=== PATIENT | male | born 1945 | race Caucasian/White ===

== ENCOUNTER 2018-09-21 01:17 | Inpatient (IN) | payer MEDICARE, OTHER ==
[2018-09-21] VITALS (20 sets, daily range): BP systolic 107–198; BP diastolic 53–118
[~2018-09-21] VITALS: Ht 172.7 cm; Wt 137.4 kg
[~2018-09-21 01:17] MED LIST: AMLODIPINE BESYL5 MG PO; ASPIR 8181 MG PO; DOCUSATE SODIU100 MG PO; FLOMAX0.4 MG PO; HYDROCHLOROTHIA25 MG PO; NEXIUM40 MG PO; NORCO 10-325 T1 EACH PO; PROAIR HFA INH8.5 GM INH; SYMBICORT 16010.2 GM INH; VYTORIN 10-801 EACH PO
[2018-09-21] MEDS ORDERED: LEVOFLOXACIN 750MG/D5W 150ML 150 ML IV STA (01:21)
[2018-09-21] MEDS ORDERED: NITROGLYCERIN/D5W 200 MCG/ML 250 ML IV STA (01:21)
[2018-09-21] MEDS ORDERED: FUROSEMIDE INJ 100 MG in SODIUM CHLORIDE 0.9% 100 ML 90 ML IV SCH (01:30)
[2018-09-21] MEDS ORDERED: ASPIRIN 81 MG CHEW TAB PO ONE ×2 (01:30)
[2018-09-21 01:39] LABS: BASOPHILS % 0.4 % (0.0-1.0); EOSINOPHILS # (AUTO) 0.1 (0.0-0.4); HEMATOCRIT 33.9 % (38.2-49.6); HEMOGLOBIN 10.9 g/dL (14.0-18.0); LYMPHOCYTES # (AUTO) 0.7 (1.0-3.2); LYMPHOCYTES % 6.9 % (18.0-39.1); MEAN CORPUSCULAR HEMOGLOBIN 31.2 pg (28-32); MEAN CORPUSCULAR HGB CONC 32.2 g/dL (31-35); MEAN CORPUSCULAR VOLUME 97.1 fL (81-99); MONOCYTES # (AUTO) 0.5 (0.2-0.8); MONOCYTES % 4.7 % (4.4-11.3); NEUTROPHILS # (AUTO) 9.1 (2.1-6.9); NEUTROPHILS % 86.3 % (38.7-80.0); PLATELET COUNT 159 x10e3/uL (140-360); RED BLOOD COUNT 3.49 x10e6/uL (4.3-5.7); RED CELL DISTRIBUTION WIDTH 15.6 % (11.7-14.4)
[2018-09-21] MEDS ORDERED: ACETAMINOPHEN 1000 MG/100 ML IV STA (01:39)
[2018-09-21 01:55] LABS: ALBUMIN 2.6 g/dL (3.5-5.0); ALBUMIN/GLOBULIN RATIO 0.6 (0.8-2.0); ANION GAP 17.3 mmol/L (8-16); CREATININE, SERUM 5.59 mg/dL (0.72-1.25); POTASSIUM 4.3 mmol/L (3.5-5.1)
--- NOTE | 2018-09-21 01:55 | Diagnostic Imaging Report ---
CHEST SINGLE (PORTABLE), 09/21/2018 1:21 AM Technique: CHEST SINGLE (PORTABLE) Comparison: 04/16/2017 Clinical history: Shortness of breath Findings: See Impression Impression: Limited by portable technique and overlying soft tissues. 1. Stable enlarged cardiac silhouette. 2. Central vascular congestion and/or mild edema. 3. Small to moderate right pleural effusion with associated atelectasis. Consider follow-up upright PA and lateral when feasible. Signed by: Dr Kateryna Keene MD on 09/21/2018 1:51 AM
[2018-09-21 02:06] LABS: CALCIUM 7.1 mg/dL (8.4-10.2)
[2018-09-21 02:07] LABS: ABG HCO3 15 mmol/L (23-28); ABG PCO2 39 mmHg (41-51); ABG PO2 186 mmHg (80-105)
[2018-09-21 02:08] LABS: CREATINE KINASE MB 16.2 ng/mL (0-5.0)
--- NOTE | 2018-09-21 02:18 | NUR ---
Report given by me to Hadley José RN. Informed of the need to IV lasix drip and antibitoics in the ICU. Patient transferred on BIPAP, AAOX3 at time of tranfer to ICU, BP 183/110 at time of transfer on nitro drip.
--- NOTE | 2018-09-21 02:20 | NUR ---
REPORT RECEIVED FROM DR. ENNIS IN ER.
[2018-09-21] MEDS ORDERED: FUROSEMIDE INJ 10 MG/ML 10 ML VIAL ONE (03:24)
[2018-09-21] MEDS ORDERED: SODIUM CHLORIDE 0.9% 250ML 250 ML ONE (03:25)
[2018-09-21] MEDS ORDERED: FUROSEMIDE INJ 10 MG/ML 2 ML VIAL ONE (03:41)
[2018-09-21] MEDS ORDERED: FUROSEMIDE INJ 10 MG/ML 4 ML VIAL IV ONE (03:45)
--- NOTE | 2018-09-21 04:15 | NUR ---
Patient brought his own [place] from home and refuses to use our medication. Got a order from Dr. Oakley to use the patients home medication. I got one tablet out from the patients home prescription bottle and gave it to the patient.
[2018-09-21] MEDS: HYDROCODONE/APAP 10MG-325MG TAB PO PRN ×5 (04:32→21:30)
--- NOTE | 2018-09-21 04:58 | NUR ---
PATIENTS BELONGINGS INCLUDED ONE BROWN WALLET THAT HAD 3 BANK CARDS, ONE MONEY CLIP WITH 41 DOLLARS, AND ONE BANK ENVELOPE WITH 300 DOLLARS, KEYS, AND HOME PRESCRIPTION OF [place] [facility]
--- NOTE | 2018-09-21 06:40 | NUR ---
CONSULT CALLED FOR DR. VO AND SPOKE DR. BYNUM. NO ORDERS GIVEN
--- NOTE | 2018-09-21 06:41 | NUR ---
CONSULT CALLED FOR DR. GABBI TOBIAS. NO CALL BACK YET
--- NOTE | 2018-09-21 06:44 | NUR ---
CONSULT WAS CALLED TO DR. ROMERO'S ANSWERING SERVICE AND SPOKE WITH PURNIMA
--- NOTE | 2018-09-21 08:50 | NUR ---
charge nurse was notified to previous note re: medication in pts room
--- NOTE | 2018-09-21 08:50 | NUR ---
pt requesting water so he can take his home medication. when pt was asked what he was taking to stated "Hydrocodone". explained to pt he could not have a controlled substance in his room, that we would have to clear through pharmacy and place in [facility]. pt became upset and rudely refused to give his medication to nurse and stated "I will give it to my daughter to take home". explained to pt risks of someone else getting his medication, pt stated "no one is going to get it because I'm going to keep it between my legs". pt place his medication back in medication bottle and dose from [facility] was administered for 10/10 pain. pt apologized for getting upset and stated he understood and would send his home and take hospital dose medication. will continue to monitor
--- NOTE | 2018-09-21 09:08 | NUR ---
WOUND CARE CONSULT Pt is a pleasant 73 y/o male admitted with CHF and HTN. Head to toe assessment performed during visit. No wounds identified. Noted dermatologic rash to mid-abdominal fold and gluteal cleft areas. Education provided for moisture management and skin care. LABS- WBC: 10.52 ALB: 2.6 MICRO- Blood Culture: Pending RECOMMENDATION: Yeast To Abdominal and Mid-Gluteal Folds: Wash affected areas with soap and water then pat dry thoroughly. Apply Nystatin Powder BID and PRN Soiling. Addendum: 09/21/18 at 1004 by Guille Kaplan RN Amended: Links added.
[2018-09-21 09:28] LABS: CREATINE KINASE MB 11.9 ng/mL (0-5.0)
--- NOTE | 2018-09-21 11:04 | NUR ---
Nutrition Screen Note RD Recommendation for Physician: -Rec cardiac/ ADA diet as medically feasible -Consider Ensure Compact BID if PO < 50% Plan of Care: RD following, monitoring for tolerance and adequacy Nutrition reason for involvement: RN Consult No reason stated Primary Diagnose(s): CHF, hypertensive emergency PMH: DM, CHF, HTN, CKD (per pt) Ht: 68in Wt: 302.44lb BMI: 46kg/m2 IBW: 154lb RD Assessment: (09/21) Chart reviewed. Labs and meds reviewed. 73yo M, who is admitted for CHF. Visited pt in the room. Pt is currently on IV lasix. 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 Pt is currently NPO but eager to eat. No recent weight loss reported. No GI complains noted. LBM 09/19. Pt denies any chewing or swallowing difficulty. Will continue to monitor and follow. Current Diet: NPO Malnutrition Evaluation (09/21/18) The patient does not meet criteria for a specified degree of malnutrition at this time. Will re-evaluate at follow-up as appropriate. Diet Education Needs Assessment: Diet education is not indicated. Nutrition Care Level: low Signed: Alyssa Lucio, MS, RD, LD
[2018-09-21] MEDS ORDERED: PIPER-TAZ 3.375 GM 50 ML IV SCH (13:15)
[2018-09-21] MEDS ORDERED: NON-FORMULARY MEDICATION (Ezetimibe/Simvastatin (Vytorin 10-80 Mg Tablet) 1 TAB) PO SCH (13:15)
--- NOTE | 2018-09-21 13:35 | Consultation ---
DATE OF CONSULTATION: September 21, 2018 CARDIOLOGY CONSULTATION REQUESTING PHYSICIAN: Dr. Oscar REASON FOR CONSULT: Congestive heart failure. HISTORY OF PRESENT ILLNESS: This is a 73-year-old man with a history of congestive heart failure, diabetes mellitus, chronic kidney disease, and morbid obesity, who presents with complaints of shortness of breath and chest pain. The patient reports he was in his usual state of health until 3-4 days prior when he developed lower extremity edema and worsening shortness of breath. Along the same time, he developed left-sided chest pain, which he described as dull and sharp. The pain was 8/10 in severity and improved with taking Rolaids. The patient denies any orthopnea or PND. However, due to his shortness of breath he presented to the ER for further evaluation. On arrival in the ER, the patient was found to be hypertensive to 215/133 with a pulse of 103. Chest x-ray revealed stable enlarged cardiac silhouette with central vascular congestion and/or mild edema, small to moderate right pleural effusion with associated atelectasis. Labs were notable for a BNP of 1767 and a creatinine of 5.6. Cardiology was therefore consulted for evaluation of congestive heart failure. REVIEW OF SYSTEMS: Negative except as per HPI. PAST MEDICAL HISTORY: Chronic diastolic heart failure, diabetes mellitus, chronic kidney disease, morbid obesity. PAST SURGICAL HISTORY: Appendectomy, knee replacement. ALLERGIES: PLEASE SEE EMR. MEDICATIONS: Please see medication list. SOCIAL HISTORY: The patient smoked up to 4 packs a day for 30 years. He quit in 1999. He previously used alcohol and drugs. FAMILY HISTORY: Pertinent with mother with history of congestive heart failure. PHYSICAL EXAMINATION VITALS: Temperature 98 degrees, pulse 104, respiratory rate 22, blood pressure 129/75, oxygen saturation 98% on 8 L nasal cannula. GENERAL: Morbidly obese gentleman in no acute distress. HEENT: Normocephalic and atraumatic. Pupils equal. No scleral icterus. NECK: Supple. No thyroid or cervical lymphadenopathy. No carotid bruits. LUNGS: Clear to auscultation bilaterally. No wheezes other than decreased breath sounds on the right. No wheezes or crackles. CARDIOVASCULAR: Tachycardic but regular. No murmur. Normal S1 and S2. ABDOMEN: Soft and nontender. EXTREMITIES: Two plus pitting edema in bilateral lower extremities. LABS: Sodium 136, potassium 4.3, chloride 110, CO2 13, BUN 60, creatinine 5.59. BNP 1767. Troponin 0.305. WBC 10.52, hemoglobin 10.9, hematocrit 33.9, and platelets 159,000. EKG is sinus tachycardia with PACs. Telemetry is sinus tachycardia. IMPRESSION 1. Hxqpv-kh-bgewwgc diastolic heart failure. 2. Elevated troponin. 3. Sinus tachycardia. 4. Hypertensive emergency. 5. Dulup-vd-kxzaufw kidney disease. 6. Diabetes mellitus. 7. Morbid obesity. RECOMMENDATIONS: Trend cardiac enzymes. Thus far, they are not consistent with myocardial infarction. Obtain echocardiogram to re-evaluate ejection fraction, as well as pulmonary pressures and right ventricular function. Continue diuretics. Volume management per nephrology given the patient's mweyw-ax-pqyktgz kidney disease. Place the patient on low-dose aspirin. Check fasting lipid panel. Given the patient's risk factors, the patient will need ischemic evaluation. However, the method will be determined based on the patient's renal function. If he is declared end-stage renal disease, we may proceed with cardiac catheterization. Otherwise, the patient will need nuclear stress test for further evaluation. Monitor blood pressure closely. Resume home cardiac medications. Thank you for this consult. We will continue to follow. Job#: [id number] LITA
--- NOTE | 2018-09-21 13:43 | Consultation ---
DATE OF CONSULTATION: September 21, 2018 PULMONARY/CRITICAL CARE CONSULTATION REASON FOR CONSULTATION: Shortness of breath. HPI: Mr. Mandujano is a 73-year-old male who presented to the emergency room with worsening shortness of breath going on for the last 1 week. He reported that his leg was swelling. He was getting progressively short of breath. He sees nephrology as an outpatient, and he is a regular patient of Dr. Oscar. He denies any chest pain, nausea or vomiting. In the emergency room, the patient's blood pressure was high, and he was started on nitroglycerin infusion and Lasix drip. Nephrology was consulted. Cardiology was consulted. Patient has history of sleep apnea, which has been diagnosed at [facility], but he does not use any CPAP machine. According to the patient, he never got CPAP machine. He denies any nausea, vomiting, diarrhea. He feels generally weak and debilitated. In the emergency room, his troponin was 0.338. His CK-MB was 16.20. His BNP was 1767. He is feeling better. He was put on BiPAP and transferred to ICU. REVIEW OF SYSTEMS GENERAL: Denies any fever or chills. HEAD: Denies any head trauma. ENT: Denies any earache. CVS: Denies any chest pain. RESPIRATORY: Shortness of breath. GI: Denies any nausea or vomiting. OTHER: Rest of the review of systems are negative except as in HPI. PAST MEDICAL HISTORY: Hypertension, hyperlipidemia, morbid obesity, chronic diastolic heart failure, chronic kidney disease, hypertension. FAMILY AND SOCIAL HISTORY: He lives by himself. He quit smoking in 1999. He smoked 3 to 4 packs per day for almost 50 years. He was seen Dr. Edward Carbajal in March 2017, and the note says the patient has diastolic dysfunction with normal EF and hypertensive heart disease as well. PHYSICAL EXAMINATION VITAL SIGNS: Temperature 98.0, pulse of 104, blood pressure 144/88. Respiratory rate 20. GENERAL APPEARANCE: He is morbidly obese. HEENT: Head is atraumatic and normocephalic. NECK: Supple. CHEST: Clear to auscultation. Reduced air entry on the bases. HEART: S1, S2 audible. ABDOMEN: Soft, nontender. EXTREMITIES: No clubbing or cyanosis. Chronic skin changes and 3+ pedal edema. NEUROLOGIC: Awake and alert. Following commands. No focal neurological deficit. LABS: White count of 10,000; hemoglobin 10.9; platelets 159. Chemistry: Sodium 136, potassium 4.3, chloride 110, BUN 60, creatinine 5.59. Troponin 0.338, CK-MB 16.20, CK 526, BNP 1767. ASSESSMENT AND PLAN: Mr. Mandujano is a 73-year-old male, morbidly obese, chronic diastolic heart failure, chronic kidney disease with acute worsening. In 2017 when he was here, the patient's creatinine was 3.02, and he follows up with nephrology. CURRENT PROBLEMS 1. Zjdin-lx-cuqrjot hypoxic respiratory failure. 2. Obstructive sleep apnea. Not using CPAP. 3. Acute kidney injury on chronic kidney disease with metabolic acidosis. 4. High troponin and CK-MB, likely cev-NV-andsrlwhb myocardial infarction versus hypertensive heart disease. 5. Fluid overload, congestive heart failure. History of diastolic heart failure. 6. Possible cellulitis of the lower extremities. PLAN 1. Continue the patient on Lasix infusion for now. Nephrology has been consulted. May need hemodialysis for acidosis and fluid overload. 2. Use of BiPAP as needed in hours of sleep for sleep apnea. 3. Blood pressure has been stable. Cardiology has been consulted. Will follow their recommendations. 4. Oxygen as needed to keep the O2 sat more than or equal to 92%. 5. I will start the patient on IV antibiotics for possibility of cellulitis. 6. Case was discussed with Dr. Oscar. Critical care time spent 50 minutes. Job#: [id number]
[2018-09-21 13:45] LABS: INR 1.05; PROTHROMBIN TIME 14.6 seconds (11.9-14.5)
[2018-09-21] MEDS ORDERED: SIMVASTATIN 80 MG TAB PO SCH (13:45)
[2018-09-21 13:54] LABS: CHOL/HDL RATIO 6.7 (3.9-4.7)
--- NOTE | 2018-09-21 14:09 | History and Physical ---
Patient was hospitalized through the emergency room. He states he presented at 2 a.m. At that time, he was treated with BiPAP and admitted to the ICU by the emergency room physician. See also EMR as available. See also visit here March 2017 under my service. The patient has been seen as an outpatient by myself and his consultants in nephrology (Dr. Castellanos) routinely. Patient was also seen by Dr. Edward Carbajal here April 07, 2017. See notes then. This is a chronically ill gentleman who has been confined to a wheelchair. Multiple difficulties have included degenerative joint disease, prior right knee replacement, surgery previously also included appendectomy. The patient has had ongoing GERD and prostatomegaly, and has required Flomax previously. History does include ongoing hyperlipoproteinemia, primary hypertension, secondary chronic leg edema, prior stasis disease of the legs, edema secondary to chronic morbid extreme obesity. ALLERGIES: HAVE INCLUDED TRAMADOL WITH HALLUCINATIONS. No tobacco or alcohol. FAMILY HISTORY: Positive for hypertension. History has included obstructive sleep apnea. Patient has had COPD. Prior heavy smoker, not recently. Abnormal sleep study previously by [facility] and the patient declined CPAP there. The patient has had recurrent urinary tract infections. Has had a Ayala. Ejection fraction was 60% when he was here last year. LVH was present. At that time, BUN was 40 with creatinine of 3.04 on admission. The patient has type 2 diabetes mellitus. Current data reviewed. White count 10.52, hemoglobin 10.9 low with normal indices. Normal platelet count. Differential normal. BUN 60, creatinine 5.59, CO2 low at 13. CPK 526, high, MB 16.2, high. Troponin 1.338, high. Natriuretic peptide 1767. Albumin 2.6. ABG with pH 7.2 at 1:40 a.m. in the emergency room. CO2 39 and O2 186, FIO2 50%, better. Blood cultures requested. Chest x-ray with enlarged cardiac silhouette, central vascular congestion and/or mild edema. Small to moderate right effusion associated with atelectasis. PHYSICAL EXAMINATION GENERAL: The patient now is supine in the ICU in no distress. The patient is oriented. Does not appear pale. VITALS: Pulse 100, temperature 98, respiratory rate 22, not labored, blood pressure 129/75, O2 sat 99%. NECK: Throat clear. Neck flexes. Carotids palpable. No palpable goiter. PULMONARY: Auscultation reveals generalized reduction in breath sounds. CARDIAC: Sounds are distant. ABDOMEN: Soft. Bowel sounds normal. Some tinea cruris. EXTREMITIES: With bilateral 2-3+ brawny edema. Pulses dampened. Generalized tenderness of the legs. DTRs depressed. Strength poor. Old scar surgical. IMPRESSION: As above. 1. Admission with respiratory failure. 2. Abnormal cardiac enzymes. health and wellness manager following. The emergency room physician actually life skills consultant Dr. Randle. 3. Chronic restrictive ventilatory deficit. 4. Obstructive sleep apnea. 5. Chronic obstructive pulmonary disease. 6. Cardiomegaly. 7. Elevated nature peptide associated with renal failure, chronic and progressive. 8. Fluid overload. The patient's collaborative physician is to see the patient and consider further treatment. 9. Hypertension. 10. Prostatic hypertrophy with recurrent urinary tract infections. 11. Degenerative joint disease. 12. Chronic pain. 13. Chronic analgesics. 14. Acidosis as above. 15. Hypertension. 16. Morbid exogenous obesity, chronic. 17. Hyperlipoproteinemia. Current plans are to assure adequate respiratory support. BiPAP p.r.n. Patient required BiPAP this morning. Further treatment of his renal failure is pending per renal consult. The patient's change consultant is seeing the patient now. I have discussed the case with the change consultant and the patient's pulmonary medicine life skills consultant here today. Continue pain control as needed. Diurese as tolerated. May need further treatment. See also initial and followup orders. Rule out DVT. Venous Dopp scan of legs requested today. See initial and followup orders also. Job#: [id number] NE
[2018-09-21] MEDS: SODIUM BICARBONATE 8.4% 150 ML in DEXTROSE 5% 1,000 ML IV SCH (16:15)
[2018-09-21] MEDS: BUMETANIDE 10 MG in SODIUM CHLORIDE 0.9% 100 ML 60 ML IV SCH (16:17)
--- NOTE | 2018-09-21 16:18 | Consultation ---
DATE OF CONSULTATION: September 21, 2018 RENAL CONSULTATION HISTORY OF PRESENT ILLNESS: Mr. John Mandujano is known to our nephrology service. He is a 73-year-old gentleman with underlying history of chronic kidney disease stage 4, follows with Dr. Garay, my associate in the office. Presented with shortness of breath and orthopnea and dyspnea on exertion. Found to have pulmonary edema with worsening kidney function, metabolic acidosis. Renal consulted on a stat basis. Patient surprisingly looks good for the degree of laboratory abnormalities. He is awake, alert, giving history although dyspneic, but he is not on BiPAP. He is on oxygen. He has got a Ayala catheter. He is nonoliguric. However, his white count is 10.5, hemoglobin is 10.9. His potassium level is 4.3 with a bicarbonate 13. He has got a BUN of 60, creatinine of 5.6 approximately. Chest x-ray shows cardiomegaly and bilateral pulmonary edema. Blood cultures are pending. He admits to shortness of breath, swelling in the lower and upper extremities. Admits to cough. Denies any fever. CURRENT MEDICATIONS: Include Lasix 100 mg q.24. He is currently on a nitroglycerin drip. He is on piperacillin/tazobactam at 3.375 grams q.6, which I am going to change to q.12 given the degree of renal failure. He is also on aspirin 81 mg to chew. Amlodipine 5 mg daily, but because of its propensity to cause third-spacing edema and CHF, I was am going to stop it. He is on atorvastatin 40 mg bedtime. He is on Colace. He is on Zetia 10 mg p.o. q. 48. I am going to hold both Zetia and atorvastatin for now. He is on heparin subcutaneous 5000 q.12. Nystatin topically. Apparently was on simvastatin that has been stopped, also, earlier. He is on Flomax 0.4 mg p.o. nightly. SOCIAL HISTORY: Does not smoke or drink. Is . FAMILY HISTORY: Significant for hypertension. PAST MEDICAL HISTORY: He has a history of right knee replacement, appendectomy, history of GERD. Hyperlipidemia. History of congestive heart failure. He has a history of diastolic dysfunction. History of BPH. History of increased BMI. History of chronic kidney disease stage 4. History of hypertension. History of stasis edema. He has had prior thoracentesis. His left kidney was found to be 12.4 cm, no mention on right kidney as a formal kidney ultrasound was not done during the last admission. PHYSICAL EXAMINATION: GENERAL: Awake, alert, lying supine, dyspneic with moderate respiratory distress, on nasal cannula 8 liters oxygen flow rate. VITALS: Blood pressure is 101/56. Pulse rate 99. Respiratory rate 25. HEAD AND NECK: Cornea clear. Oral mucosa moist. Neck veins distended. LUNGS: Bilateral rales one third up. HEART: S3 gallop. ABDOMEN: Otherwise soft, distended, obese. Flanks full. LOWER EXTREMITY EXAMINATION: 2 to 3+ edema. IMPRESSION/PLAN: 1. Evidence of severe congestive heart failure. 2. Possible underlying pneumonia. 3. Severe metabolic acidosis. Fortunately nonoliguric. Discussed with patient and family member and RN. Plan on urgent hemodialysis catheter placement and dialysis. IV bicarbonate. IV Bumex drip. Stat kidney ultrasound. To diurese aggressively. Patient critically ill. Job#: [id number] EV
--- NOTE | 2018-09-21 16:25 | Diagnostic Imaging Report ---
EXAMINATION: CHEST XRAY LINE PLACEMENT INDICATION: Check non tunneled cath placement COMPARISON: 09/21/2018 1:29 AM hours FINDINGS: TUBES and LINES: Right IJ central venous catheter with distal tip projected on the SVC just proximal to the cavoatrial junction. LUNGS: Mild bilateral pulmonary venous congestion. PLEURA: Small right pleural effusion and bibasilar subsegmental atelectasis versus consolidation. The left lateral lower hemithorax was not included. No pneumothorax. HEART AND MEDIASTINUM: The cardiomediastinal silhouette is unremarkable. BONES AND SOFT TISSUES: No acute osseous lesion. Soft tissues are unremarkable. UPPER ABDOMEN: No free air under the diaphragm. IMPRESSION: Interval placement of a right IJ central venous catheter with distal tip projected on the SVC just proximal to the cavoatrial junction Signed by: Dr. Liana Ramos M.D. on 09/21/2018 4:22 PM
--- NOTE | 2018-09-21 16:30 | Diagnostic Imaging Report ---
ADDENDUM #1 Addendum: Permanent sonographic image of a patent right internal jugular vein as well as access of the right internal jugular vein with micropuncture needle was obtained and stored in the medical record. Signed by: Dr. Nadine Cantrell MD on 09/30/2018 5:36 PM ORIGINAL REPORT Procedure: Right internal jugular non-tunneled hemodialysis catheter placement with ultrasound guidance strap cutting machine operator: Dr. Nadine Cantrell Pre-operative diagnosis: Requiring central venous and HD access. Post-operative diagnosis: Status post central venous and HD access placement Sedation: Local Additional Medications: 10 cc Lidocaine 1% for local anesthesia Estimated blood loss: None Specimens: None Implants: 13 Fr x 15 cm Trialysis non-tunneled hemodialysis catheter TECHNIQUE/FINDINGS: Informed consent was obtained from the patient and documented in the medical record after discussion of risks and benefits. The patient was placed in the supine position. Preliminary sonographic evaluation of the right neck confirmed a patent and compressible right internal jugular vein. The neck was then prepped and draped in a standard sterile fashion. Subsequently, 1% lidocaine was infiltrated into the skin and subcutaneous tissues for local anesthesia. Then under continuous sonographic guidance, a 21 gauge needle was advanced into the right internal jugular vein and an .018'' wire was placed. A 5 Fr micropuncture sheath was placed and the existing wire was exchanged for an .035'' Amplatz wire. The tract was sequentially dilated. Then, a 13 Fr x 15 cm Trialysis triple lumen non-tunneled hemodialysis catheter was advanced. The wire was then removed. Each lumen was tested and showed adequate bidirectional flow. The catheter was secured to the skin with Monocryl, flushed with saline, and covered by a sterile dressing. No evidence of immediate complication. IMPRESSION: Placement of a right IJ non-tunneled triple lumen hemodialysis catheter with ultrasound guidance as above. Signed by: Dr. Nadine Cantrell MD on 09/21/2018 4:27 PM
[2018-09-21] MEDS ORDERED: NYSTATIN 15 GM POWDER UD BTL TOP SCH (17:00)
[2018-09-21] MEDS ORDERED: DOCUSATE SODIUM 100 MG CAP PO SCH (17:00)
--- NOTE | 2018-09-21 17:56 | Diagnostic Imaging Report ---
EXAM: Renal Ultrasound INDICATION: ^arabella COMPARISON: None TECHNIQUE: Transverse and longitudinal images of the kidneys and bladder were obtained. FINDINGS: Right Kidney: (Limited views) Size: 6.7 x 6.1 x 4.5 cm Echogenicity: Normal Parenchymal thickness: Normal Collecting system: No hydronephrosis Stones: None Cyst/Mass: None Left Kidney: Size: 10.4 x 6.2 x 5.2 cm Echogenicity: Normal Parenchymal thickness: Normal Collecting system: No hydronephrosis Stones: None Cyst/Mass: None Bladder: Decompressed with a Ayala catheter in place. IMPRESSION: 1. Limited views of the right kidney. 2. Normal left kidney. Signed by: Dr. Bharat Chawla M.D. on 09/21/2018 5:53 PM
[2018-09-21 20:03] LABS: CREATINE KINASE MB 9.3 ng/mL (0-5.0)
[2018-09-21] MEDS ORDERED: HEPARIN SOD (PORCINE) 1000 UNIT/ML SDV ONE (20:40)
[2018-09-21] MEDS ORDERED: HYDRALAZINE HCL 20 MG/ML VIAL IV STA (20:40)
[2018-09-21] MEDS ORDERED: HEPARIN SOD (PORCINE) 5,000 UNIT/ML VIAL SC SCH (21:00)
[2018-09-21] MEDS ORDERED: ATORVASTATIN 20 MG TAB PO SCH (21:00)
[2018-09-21] MEDS ORDERED: ATORVASTATIN 40 MG TAB PO SCH (21:00)
[2018-09-21] MEDS: PIPER-TAZ 3.375 GM 50 ML IV SCH (21:48)
[2018-09-21] MEDS: NITROGLYCERIN/D5W 200 MCG/ML 250 ML IV PRN (21:49)
--- NOTE | 2018-09-21 23:08 | NUR ---
Paged Dr. Oscar to get an order for acid reflux. No answer. Left a message and waiting for a call back.
[2018-09-22] VITALS (30 sets, daily range): BP systolic 85–162; BP diastolic 45–102
--- NOTE | 2018-09-22 | NUR ---
received page back from Dr. Oscar and he ordered Nexium 40mg now and daily. Protonix was supplemented in place of the Nexium.
[2018-09-22] MEDS: BUMETANIDE 10 MG in SODIUM CHLORIDE 0.9% 100 ML 60 ML IV SCH ×3 (01:00→21:23)
[2018-09-22] MEDS ORDERED: PANTOPRAZOLE SOD 40 MG TABEC PO ONE (01:00)
[2018-09-22] MEDS: HYDROCODONE/APAP 10MG-325MG TAB PO PRN ×4 (01:30→14:22)
[2018-09-22 05:05] LABS: BASOPHILS % 0.1 % (0.0-1.0); EOSINOPHILS # (AUTO) 0.2 (0.0-0.4); EOSINOPHILS % 1.6 % (0.0-6.0); HEMATOCRIT 30.2 % (38.2-49.6); HEMOGLOBIN 9.6 g/dL (14.0-18.0); LYMPHOCYTES # (AUTO) 0.2 (1.0-3.2); LYMPHOCYTES % 1.9 % (18.0-39.1); MEAN CORPUSCULAR HGB CONC 31.8 g/dL (31-35); MEAN CORPUSCULAR VOLUME 97.4 fL (81-99); MONOCYTES # (AUTO) 0.4 (0.2-0.8); MONOCYTES % 4.2 % (4.4-11.3); NEUTROPHILS # (AUTO) 9.6 (2.1-6.9); NEUTROPHILS % 91.6 % (38.7-80.0); PLATELET COUNT 142 x10e3/uL (140-360); RED CELL DISTRIBUTION WIDTH 15.3 % (11.7-14.4)
[2018-09-22 05:20] LABS: ALBUMIN 2.2 g/dL (3.5-5.0); ALBUMIN/GLOBULIN RATIO 0.5 (0.8-2.0); ANION GAP 15.9 mmol/L (8-16); CALCIUM 7.1 mg/dL (8.4-10.2); CREATININE, SERUM 4.89 mg/dL (0.72-1.25); POTASSIUM 3.9 mmol/L (3.5-5.1)
--- NOTE | 2018-09-22 07:10 | NUR ---
report given to maira taylor
[2018-09-22] MEDS: PANTOPRAZOLE SOD 40 MG TABEC PO SCH (07:29)
[2018-09-22] MEDS: HYDRALAZINE HCL 20 MG/ML VIAL IV PRN (07:36)
--- NOTE | 2018-09-22 07:53 | NUR ---
pt c/o cp 5/10 in scale. states pain is burning goes from abdomen up sternum. stat ekg order placed. called RT for EKG. notified Dr. Randle after EKG obtained for orders. Notified Dr. Oscar new orders obtained. orders carried out as ordered. assisted by charge nurse. no HD today per Dr. Castellanos. will continue to monitor and intervene as needed.
--- NOTE | 2018-09-22 08:30 | NUR ---
Rec'd order from Dr. Castellanos to decrease Sodium Bicarb gtt to 30cc/hr
[2018-09-22] MEDS ORDERED: HYDRALAZINE HCL 20 MG/ML VIAL IV SCH (09:00)
[2018-09-22] MEDS ORDERED: NYSTATIN 15 GM POWDER UD BTL TOP SCH (09:00)
[2018-09-22] MEDS ORDERED: EZETIMIBE 10 MG TAB PO SCH (09:00)
[2018-09-22] MEDS: ASPIRIN 81 MG ENTERIC COATED PO SCH (09:00)
[2018-09-22] MEDS ORDERED: SIMVASTATIN 80 MG TAB PO SCH ×2 (09:00)
[2018-09-22] MEDS ORDERED: AMLODIPINE BESYLATE 5 MG TAB PO SCH (09:00)
[2018-09-22] MEDS: SIMETHICONE 80 MG CHEW PO PRN ×2 (09:12→19:23)
[2018-09-22] MEDS ORDERED: ASPIRIN 81 MG CHEW TAB PO ONE (09:15)
[2018-09-22] MEDS ORDERED: SUCRALFATE 1 GM/10 ML SUSP ONE (09:18)
[2018-09-22] MEDS: SUCRALFATE 1 GM/10 ML SUSP PO SCH ×2 (09:18→17:41)
[2018-09-22] MEDS ORDERED: ASPIRIN 81 MG CHEW TAB ONE (09:19)
[2018-09-22] MEDS: NITROGLYCERIN 0.4 MG SUBL SL PRN ×3 (09:25→13:58)
[2018-09-22] MEDS ORDERED: NITROGLYCERIN 0.4 MG SUBL ONE (09:26)
[2018-09-22 09:45] LABS: CREATINE KINASE MB 10.5 ng/mL (0-5.0)
[2018-09-22] MEDS ORDERED: MAGNESIUM/ALUMINUM/SIMETHICONE 30 ML UDC PO ONE ×2 (09:45→10:20)
[2018-09-22] MEDS: HEPARIN 25,000U/0.45% NS 250ML 250 ML IV SCH ×2 (10:15→22:13)
[2018-09-22] MEDS: DOCUSATE SODIUM LIQD 100 MG/10 ML UDC PO SCH ×2 (10:39→17:41)
[2018-09-22] MEDS: PIPER-TAZ 3.375 GM 50 ML IV SCH ×2 (10:39→21:25)
[2018-09-22] MEDS: ATENOLOL 50 MG TAB PO SCH ×2 (10:40→11:06)
[2018-09-22] MEDS: METOPROLOL TARTRATE 25 MG TAB PO SCH ×2 (11:50→17:41)
--- NOTE | 2018-09-22 12:02 | NUR ---
Call placed to [facility] for bariatric bed per order. Conf# is [id number].
[2018-09-22] MEDS: SODIUM BICARBONATE 8.4% 150 ML in DEXTROSE 5% 1,000 ML IV SCH (14:00)
--- NOTE | 2018-09-22 15:05 | NUR ---
Rec'd report from lab blood cx x 1 returned w/gram positive Cocci. Notified Dr. Oscar, Rec'd order to redraw new blood cx x 2. order placed notified lab
[2018-09-22] MEDS: MORPHINE SULFATE INJ 4 MG/ML INJ IV PRN (15:13)
--- NOTE | 2018-09-22 16:30 | NUR ---
[facility] Rotational bed arrived for patient.
[2018-09-22] MEDS: NITROGLYCERIN/D5W 200 MCG/ML 250 ML IV PRN (16:31)
[2018-09-22] MEDS: NYSTATIN 15 GM POWDER UD BTL TOP SCH ×2 (17:38→21:25)
[2018-09-22 17:45] LABS: CREATINE KINASE MB 8.9 ng/mL (0-5.0)
--- NOTE | 2018-09-22 18:00 | NUR ---
notified of all c/o cp this day. Rec'd and intervened on all orders. pt to sign consent for cardiac cath tomorrow, NPO after MN.
--- NOTE | 2018-09-22 18:17 | Progress Note ---
DATE: September 22, 2018 CARDIOLOGY PROGRESS NOTE0 SUBJECTIVE: Patient is complained of chest heaviness this morning associated with shortness of breath. OBJECTIVE VITAL SIGNS: Temperature 98.5 degrees, pulse 93, respirations 18, blood pressure 130/84, oxygen saturation 100% on 8 liters of nasal cannula. GENERAL: Obese gentleman in no acute distress, awake and alert. LUNGS: Clear to auscultation bilaterally. No wheezes. Decreased breath sounds on the right. CARDIOVASCULAR: Tachycardic, but regular. No murmur. Normal S1 and S2. ABDOMEN: Soft and nontender. EXTREMITIES: 2+ pitting edema bilateral lower extremities. CARDIAC MEDICATIONS 1. Nitroglycerin drip. 2. Bumex 1 mg an hour. 3. Metoprolol tartrate 25 mg p.o. b.i.d. 4. Aspirin 81 mg p.o. daily. 5. Atorvastatin 40 mg p.o. q.h.s. 6. Heparin drip. LABS: WBC 10.51, hemoglobin 9.6, hematocrit 30.2, and platelets 142. Sodium 137, potassium 3.9, chloride 105, CO2 of 45, creatinine 4.89, and troponin 0.272. TELEMETRY: Sinus tachycardia. IMPRESSION 1. Zhdfo-wv-kvmteia systolic and diastolic heart failure. 2. Chest pain. 3. Elevated troponin. 4. Sinus tachycardia. 5. Hypertensive emergency. 6. Dxanf-fk-ifilxyp kidney disease. 7. Diabetes mellitus. 8. Morbid obesity. RECOMMENDATIONS: Trend cardiac enzymes given episode of chest pain. No evidence of myocardial infarction thus far. Continue heparin drip as well as nitroglycerin drip. Given patient's multiple risk factor, ischemic evaluation is warranted with cardiac catheterization; however, he is at high risk for contrast-induced nephropathy and need for dialysis given his chronic kidney disease. If patient is agreeable, we will proceed with cardiac catheterization in the morning. Volume measurement per nephrology given need for dialysis. Continue current cardiac medications otherwise. Thank you for this consult. We will continue to follow. Job#: [id number] JOHN
--- NOTE | 2018-09-22 18:45 | NUR ---
report given to Chuck MORILLO. RN will get consent signed as ordered.
--- NOTE | 2018-09-22 19:20 | NUR ---
received call from lab, critical ptt, turned off heparin drip per hospital protocol. patient is in bed talking to me in no distress. no signs of bleeding.
--- NOTE | 2018-09-22 19:21 | NUR ---
heparin drip was running at 1100 u/hour. heparin drip turned off and will be decreased accordingly
--- NOTE | 2018-09-22 19:53 | NUR ---
blood pressure noted to be low since beginning of my shift. nitroglycerin drip turned off to keep MAP > 65
--- NOTE | 2018-09-22 20:57 | NUR ---
PAGED CARDIOLOGY DUE TO LOW BLOOD PRESSURE DESPITE TURNING OFF NITRO DRIP
--- NOTE | 2018-09-22 21:14 | NUR ---
CARDIOLOGY RETURNED PHONE CALL- , INFORMED HER OF MAP BELOW 65. INFORMED HER SINCE BEGINNING OF MY SHIFT THE MAP HAS BEEN LOW, INFORMED HER OF MY INTERVENTION OF TURNING OFF THE NITRO DRIP. I WAS INSTRUCTED TO KEEP OBSERVING BLOOD PRESSURE AND GIVE A CALL BACK IF IT DOES NOT IMPROVE. I INQUIRED ABOUT THE BUMEX DRIP AND WAS INSTRUCTED TO KEEP IT ON SINCE THE VEGETABLE INSPECTOR DOES NOT THINK IT TO BE A FACTOR. INFORMED VEGETABLE INSPECTOR OF PATIENTS URINARY OUTPUT WHICH IS LOW. PATIENT IS AT BEDSIDE AND NOT IN ANY DISTRESS, ANSWERING ALL QUESTIONS APPROPRIATELY, NO CHANGES IN MENTAL STATUS.
[2018-09-22] MEDS: TAMSULOSIN HCL 0.4 MG CAP PO SCH (21:25)
[2018-09-22] MEDS: ATORVASTATIN 40 MG TAB PO SCH (21:25)
[2018-09-23] VITALS (26 sets, daily range): BP systolic 87–147; BP diastolic 48–114
--- NOTE | 2018-09-23 01:35 | NUR ---
PATIENTS MAP NOW ABOVE 65. PATIENT MAKING NEEDS KNOWN
--- NOTE | 2018-09-23 03:56 | NUR ---
MORNING LABS WERE DRAWN AND DROPPED OFF AT LAB AT 0349. INSTRUCTED PROPOSAL SPECIALIST TO CALL ME IMMEDIATELY WITH PTT RESULTS SINCE PATIENT IS ON A HEPARIN DRIP TITRATION
[2018-09-23 04:01] LABS: BASOPHILS % 0.3 % (0.0-1.0); EOSINOPHILS # (AUTO) 0.1 (0.0-0.4); EOSINOPHILS % 1.1 % (0.0-6.0); HEMATOCRIT 33.1 % (38.2-49.6); HEMOGLOBIN 10.2 g/dL (14.0-18.0); LYMPHOCYTES # (AUTO) 0.3 (1.0-3.2); LYMPHOCYTES % 2.6 % (18.0-39.1); MEAN CORPUSCULAR HEMOGLOBIN 30.7 pg (28-32); MEAN CORPUSCULAR HGB CONC 30.8 g/dL (31-35); MEAN CORPUSCULAR VOLUME 99.7 fL (81-99); MONOCYTES # (AUTO) 0.5 (0.2-0.8); MONOCYTES % 4.5 % (4.4-11.3); NEUTROPHILS # (AUTO) 10.8 (2.1-6.9); PLATELET COUNT 128 x10e3/uL (140-360); RED BLOOD COUNT 3.32 x10e6/uL (4.3-5.7); RED CELL DISTRIBUTION WIDTH 15.6 % (11.7-14.4)
[2018-09-23 04:13] LABS: ANION GAP 18.2 mmol/L (8-16); CALCIUM 7.1 mg/dL (8.4-10.2); CREATININE, SERUM 6.1 mg/dL (0.72-1.25); POTASSIUM 4.2 mmol/L (3.5-5.1)
[2018-09-23 04:45] LABS: CREATINE KINASE MB 18.9 ng/mL (0-5.0)
--- NOTE | 2018-09-23 05:02 | NUR ---
PAGED DR TOBIAS TO INFORM HIM OF LAB RESULTS FOR THIS AM
--- NOTE | 2018-09-23 05:12 | NUR ---
DR ROTH WAS INFORMED OF CRITICAL TROPONIN, INCREASE IN CK AND CKMB. INQUIRED ABOUT PAIN MEDICATION ADMINISTRATION SINCE PATIENTS BLOOD PRESSURE WAS CHALLENGING TO CONTROL DURING SHIFT. DR ROTH STATED IT WAS OK TO GIVE MORPHINE. REPEAT CARDIAC MARKERS AT 10AM.
--- NOTE | 2018-09-23 05:31 | NUR ---
SPOKE TO DR TOBIAS REGARDING URINARY OUTPUT AND MORNING BLOOD WORK. RECEIVED ORDERS TO BLADDER SCAN PATIENT AND DO X1 ORDER OF BUMEX 2MG IV.
[2018-09-23] MEDS: MORPHINE SULFATE INJ 4 MG/ML INJ IV PRN ×3 (05:35→13:59)
[2018-09-23] MEDS: HEPARIN 25,000U/0.45% NS 250ML 250 ML IV SCH ×2 (05:40→13:22)
--- NOTE | 2018-09-23 05:44 | NUR ---
PATIENT DOES NOT WANT TO SIGN DISCLOSURE AND CONSENT FOR PROCEDURE UNTIL HE SPEAKS TO THE DOCK OPERATIONS SUPERVISOR IN PERSON DUE TO THE FACT HE HAS SOME ADDITIONAL QUESTIONS ABOUT RISKS AND EFFECTS OF PROCEDURE
[2018-09-23] MEDS ORDERED: BUMETANIDE INJ 0.25MG/ML 4ML VIAL IV ONE (05:45)
--- NOTE | 2018-09-23 06:24 | NUR ---
BLADDER SCAN NEGATIVE, NO URINE IN BLADDER.
--- NOTE | 2018-09-23 07:00 | NUR ---
Patient moved to [facility] rotational bed by 3 staff members.
--- NOTE | 2018-09-23 07:14 | NUR ---
Bedside report rec'd from ILIA James. Spoke with Dr Randle as patient refuses to sign consent for heart catheterization today. Dr Randle states the procedure will be with Dr Maddox and he will speak with the patient.
[2018-09-23] MEDS: SUCRALFATE 1 GM/10 ML SUSP PO SCH ×2 (07:30→16:31)
[2018-09-23] MEDS ORDERED: BUMETANIDE INJ 0.25 MG/ML 10 ML VIAL ONE (08:35)
[2018-09-23] MEDS: PIPER-TAZ 3.375 GM 50 ML IV SCH ×2 (08:56→21:08)
[2018-09-23] MEDS: NYSTATIN 15 GM POWDER UD BTL TOP SCH ×2 (09:00→21:00)
[2018-09-23] MEDS: DOCUSATE SODIUM LIQD 100 MG/10 ML UDC PO SCH ×2 (09:00→16:35)
[2018-09-23] MEDS: METOPROLOL TARTRATE 25 MG TAB PO SCH ×2 (09:00→17:00)
[2018-09-23] MEDS: BUMETANIDE 10 MG in SODIUM CHLORIDE 0.9% 100 ML 60 ML IV SCH ×2 (09:20→16:00)
[2018-09-23 11:41] LABS: CREATINE KINASE MB 20.9 ng/mL (0-5.0)
--- NOTE | 2018-09-23 11:52 | NUR ---
PTT 32.9; Heparin gtt increased to 1200 units/hour. Next PTT at 1700.
--- NOTE | 2018-09-23 13:00 | NUR ---
Dr Maddox to bedside; aware of troponin. Spoke with patient and answered questions, patient agrees to informed consent and signed informed consent.
--- NOTE | 2018-09-23 15:18 | NUR ---
Rotary Furnace Operator to bedside to discuss plan of care with patient/family. CM/SW role and care transitions discussed. Anticipated discharge plan discussed along with duration of care. CM/SW discussed patients right to make decisions in care. CM/SW work hours given. Patient lives: PATIENT LIVES ALONE IN 1 STORY HOME Admit/Transfer: ED POA/Emergency contact: DAUGHTER YASMIN CALDERON- [phone] Current/Previous Home Health: PATIENT HAS PROVIDER THAT COMES 3 HOURS A DAY; 6 DAYS A WEEK TO HELP WITH COOKING AND CLEANING PCP/Follow-up Care: ASHWIN HADLEY MD Current/Previous DME: [facility]; HOME OXYGEN, BEDSIDE COMMODE Other Services: NONE Employment Status: RETIRED Areas of Concerns: MOBILITY Referral Needs: NONE AT THIS TIME Education Needs: N/A IMM/BARRETT given and signed (if applicable): N/A Goal for discharge: JESU'S GOAL FOR DISCHARGE IS TO RETURN HOME CM left business card at the bedside with contact information. Name and number was also written on the patients whiteboard. Patient verbalized understanding of discussion. CM will follow-up with ongoing discharge and transition of care needs.
[2018-09-23 15:45] LABS: CLARITY,URINE CLOUDY (CLEAR); COLOR,URINE YELLOW (YELLOW)
[2018-09-23 15:46] LABS: BILIRUBIN,URINE NEGATIVE (NEGATIVE); KETONES,URINE NEGATIVE (NEGATIVE); LEUKOCYTE ESTERASE ,URINE 2+ (NEGATIVE); NITRITE,URINE POSITIVE (NEGATIVE); PROTEIN,URINE DIPSTICK 3+ (NEGATIVE); URINE UROBILINOGEN 0.2 mg/dL (0.2 - 1)
[2018-09-23 15:51] LABS: BACTERIA,URINE MANY /HPF; EPITHELIAL CELLS,URINE RARE /LPF; WBC,URINE (MAN) >50 /HPF (0-5)
--- NOTE | 2018-09-23 15:54 | NUR ---
Urine specimen to lab. Dr Maddox's nurse to bedside and informed cardiac cath will be tomorrow at 0900. Patient agreeable. anesthetist made aware, [place] administered, dinner tray ordered.
[2018-09-23] MEDS: HYDROCODONE/APAP 10MG-325MG TAB PO PRN ×2 (15:55→20:24)
[2018-09-23] MEDS ORDERED: SODIUM CHLORIDE 0.9% 1000ML 1,000 ML ONE (15:59)
[2018-09-23] MEDS: SODIUM BICARBONATE 8.4% 150 ML in DEXTROSE 5% 1,000 ML IV SCH (15:59)
--- NOTE | 2018-09-23 16:20 | NUR ---
Dr Castellanos to bedside; urometer placed per request. 250 mL emptied from catheter. Dr Castellanos made aware.
[2018-09-23] MEDS: PANTOPRAZOLE SOD 40 MG TABEC PO SCH (16:31)
[2018-09-23] MEDS: ASPIRIN 81 MG ENTERIC COATED PO SCH (16:31)
--- NOTE | 2018-09-23 17:35 | NUR ---
Patient ate portion of dinner well. HD started.
--- NOTE | 2018-09-23 17:47 | NUR ---
PTT 31.0; Heparin to 1200 units/hr. Next PTT due at 2300.
--- NOTE | 2018-09-23 18:34 | Progress Note ---
DATE: September 23, 2018 CARDIOLOGY PROGRESS NOTE SUBJECTIVE: Patient is feeling better. Chest pressure has improved. No shortness of breath. OBJECTIVE VITAL SIGNS: Temperature is 98.0. Heart rate is 79. Respirations 16. Blood pressure is 121/67. Ox saturation is 100% on 6 L nasal cannula. GENERAL: He is obese, chronically ill-appearing man. VASCULAR: Regular rate and rhythm. LUNGS: Scattered rhonchi, decreased breath sounds at bilateral bases. ABDOMEN: Soft, nontender. EXTREMITIES: 2+ edema. CARDIOVASCULAR MEDICATIONS: Reviewed. LABORATORY DATA: Reviewed. TELEMETRY MONITORING: Reveals sinus rhythm and sinus tachycardia. IMPRESSIONS 1. Uyr-KQ-gfcmycptz myocardial infarction. 2. Hhxjq-su-zgcchff systolic and diastolic congestive heart failure. 3. Rtfjr-vh-xifwean kidney disease. 4. Diabetes mellitus. 5. Morbid obesity. RECOMMENDATIONS: The patient had increasing chest pain over the holiday weekend. His troponins have now continued to rise. Currently, he is feeling better. Will recommend selective coronary angiography for possible coronary intervention. Patient will be initiated on dialysis per nephrology. Continue all current cardiovascular medications otherwise. Job#: [id number]
[2018-09-23] MEDS: ATORVASTATIN 40 MG TAB PO SCH (20:24)
[2018-09-23] MEDS: TAMSULOSIN HCL 0.4 MG CAP PO SCH (20:24)
[2018-09-23] MEDS ORDERED: HEPARIN SOD (PORCINE) 1000 UNIT/ML SDV ONE (20:42)
--- NOTE | 2018-09-23 20:42 | NUR ---
override for heparin 1000 units x4 for dialysis nurse to pack the line.
[2018-09-24] VITALS (26 sets, daily range): BP systolic 85–159; BP diastolic 46–101
[2018-09-24] MEDS: METOPROLOL TARTRATE 25 MG TAB PO SCH ×3 (00:35→17:00)
--- NOTE | 2018-09-24 00:36 | NUR ---
metoprolol given after HD per Dr. Castellanos request
[2018-09-24] MEDS: BUMETANIDE 10 MG in SODIUM CHLORIDE 0.9% 100 ML 60 ML IV SCH (00:59)
[2018-09-24 05:15] LABS: ALBUMIN 2.1 g/dL (3.5-5.0); ALBUMIN/GLOBULIN RATIO 0.5 (0.8-2.0); CREATININE, SERUM 5.12 mg/dL (0.72-1.25)
[2018-09-24 05:16] LABS: CALCIUM 6.9 mg/dL (8.4-10.2)
--- NOTE | 2018-09-24 05:40 | NUR ---
critical calcium of 6.9. used the albumin level of 2.1 to correct the calcium to 8.42.
--- NOTE | 2018-09-24 06:39 | NUR ---
Paged dr. Castellanos to update on the patients urine output. Waiting for a page back from Dr. Haro who is outside installation machinist.
--- NOTE | 2018-09-24 06:58 | NUR ---
Dr. Castellanos paged me back and ordered a chest xray and to stop the bumex drip.
--- NOTE | 2018-09-24 07:00 | NUR ---
BEDSIDE REPORT RECVD. ASSESSMENT COMPLETED AND RECORDED. PT VERBALIZES UNDERSTANDING OF POC AND INTERMITTENTLY REFUSING CARE. PT INSISTING ON SITTING ON SIDE OF BED FOR XRAY, EXPLAINED TO HIM PROCEDURE FOR HIS SAFETY. UPDATED CN AND SHE AGAIN INSTRUCTED ON PROCEDURE. PT REPOSITIONED AND XRAY OBTAINED. INSTRUCTED PT ON USE OF CALL RAMOS AND PROMPLY ANSWERED HIS CALLS.
[2018-09-24] MEDS: SUCRALFATE 1 GM/10 ML SUSP PO SCH ×2 (07:30→17:08)
[2018-09-24] MEDS: PANTOPRAZOLE SOD 40 MG TABEC PO SCH (07:30)
--- NOTE | 2018-09-24 07:39 | Diagnostic Imaging Report ---
EXAM: XR CHEST 1 VIEW DATE: 09/24/2018 6:59 AM INDICATION: CHF COMPARISON: 09/21/2018, no report available FINDINGS: Lines and Tubes: Right IJ catheter tip distal SVC. Heart and Mediastinum: Heart remains mildly enlarged. Lungs and Pleura: Perihilar fullness, perihilar cuffing, mild interstitial opacities, trace left effusion, and moderate right effusion, stable. Bones and Soft Tissues: No acute findings. IMPRESSION: 1. Stable volume overload with asymmetric to the right effusions. Signed by: Dr. Miguel Olivarez MD on 09/24/2018 7:36 AM
[2018-09-24] MEDS: ASPIRIN 81 MG ENTERIC COATED PO SCH (07:47)
[2018-09-24] MEDS: DOCUSATE SODIUM LIQD 100 MG/10 ML UDC PO SCH ×2 (07:48→17:08)
[2018-09-24] MEDS: NYSTATIN 15 GM POWDER UD BTL TOP SCH ×2 (07:49→21:42)
[2018-09-24] MEDS: PIPER-TAZ 3.375 GM 50 ML IV SCH ×2 (07:50→21:42)
--- NOTE | 2018-09-24 08:15 | NUR ---
PT VERBALIZES SOME RELEIF FROM PAIN MEDS GIVEN.
[2018-09-24] MEDS: MORPHINE SULFATE INJ 4 MG/ML INJ IV PRN (08:16)
--- NOTE | 2018-09-24 08:30 | NUR ---
DR SHINE MAKING ROUNDS. UPDATED ON STATUS. NO NEW ORDERS AT THIS TIME. PT HAS NO NEW QUESTIONS.
[2018-09-24] MEDS ORDERED: HEPARIN SOD/SOD CHLORIDE 2,000 ML ONE (08:40)
[2018-09-24] MEDS ORDERED: LIDOCAINE HCL 2% LOCAL 20 ML VIAL ONE (08:40)
[2018-09-24] MEDS ORDERED: IOPAMIDOL 370 MG/ML 200 ML INFUS..BTL INJ ONE ×2 (08:40→10:24)
[2018-09-24] MEDS ORDERED: SODIUM CHLORIDE 0.9% 1000ML 1,000 ML ONE (08:41)
[2018-09-24] MEDS ORDERED: NITROGLYCERIN/D5W 200 MCG/ML 250 ML ONE (09:08)
[2018-09-24] MEDS ORDERED: HEPARIN SOD (PORCINE) 1000 UNIT/ML 30ML ONE (09:08)
[2018-09-24] MEDS ORDERED: VERAPAMIL HCL 2.5 MG/ML 2 ML VIAL ONE (09:08)
--- NOTE | 2018-09-24 09:21 | NUR ---
PT TO OR VIA BED IN [facility], NO FAMILY PRESENT
[2018-09-24] MEDS ORDERED: MIDAZOLAM HCL 2 MG/2 ML VIAL ONE (09:45)
[2018-09-24] MEDS ORDERED: FENTANYL CITRATE/PF 100MCG/2 ML INJ ONE (09:45)
--- NOTE | 2018-09-24 11:01 | NUR ---
RECV REPORT AND PT FROM SECURITY INSTALLER. NO INTERVENTIONS. ORDERS UPDATED. RT WRIST BAND ON TO BE DEFLATED OF 1253. PER PROTOCOL. NO FAMILY AT BEDSIDE.
[2018-09-24] MEDS ORDERED: SODIUM CHLORIDE 0.9% 500ML 500 ML ONE (11:47)
[2018-09-24] MEDS: HYDROCODONE/APAP 10MG-325MG TAB PO PRN ×3 (12:05→21:42)
[2018-09-24] MEDS ORDERED: ALBUMIN 5% 500 ML IV ONE (12:15)
--- NOTE | 2018-09-24 12:26 | Progress Note ---
DATE: September 24, 2018 CARDIOLOGY PROGRESS NOTE SUBJECTIVE: The patient is feeling better. Denies any chest pain, shortness of breath or palpitations. OBJECTIVE VITAL SIGNS: Temperature is 97.0. Heart rate is 74. Respirations are 18. Blood pressure is 149/85. Oxygen saturation is 98% on 5 liters nasal cannula. GENERAL: A chronically ill-appearing, elderly, obese male in no apparent distress. CARDIOVASCULAR: Regular rate and rhythm. No murmurs. LUNGS: Mildly diminished breath sounds at bilateral bases. ABDOMEN: Soft, nontender. EXTREMITIES: Edema. VASCULAR: Diminished pulses. SKIN: Warm, dry, intact. NEUROLOGIC: No focal deficits noted. CARDIOVASCULAR MEDICATIONS: Reviewed. LABORATORY DATA: Reviewed. TELEMETRY MONITORING: Normal sinus rhythm. IMPRESSION 1. Yki-DY-gdnmexkux myocardial infarction. 2. Nonobstructive coronary artery disease. 3. Ksuyu-jp-hdsdixy systolic and diastolic congestive heart failure. 4. Gjtch-wh-mkuveak kidney disease, currently on hemodialysis. 5. Diabetes mellitus. 6. Morbid obesity. 7. Hypertension. RECOMMENDATIONS: Coronary angiography today revealed nonobstructive coronary artery disease in the left coronary system. Patient has a severe stenosis of a small, nondominant right coronary artery. Will need aggressive medical management for his coronary disease. No indication for percutaneous coronary intervention or bypass surgery. Continue volume removal with dialysis. Otherwise, continue close telemetry monitoring and continue current cardiovascular medications. Job#: [id number]
--- NOTE | 2018-09-24 13:59 | Operative Report ---
DATE OF PROCEDURE: September 24, 2018 PROCEDURES PERFORMED 1. Conscious sedation, 60 minutes. 2. Selective coronary angiography times 2. 3. Intravascular ultrasound of the left main coronary artery. PREOPERATIVE DIAGNOSIS: Elevated troponins. POSTOPERATIVE DIAGNOSIS: Nonobstructive coronary artery disease. ESTIMATED BLOOD LOSS: Less than 20 mL. SPECIMENS REMOVED: None. PROCEDURE DETAILS: After informed consent was obtained, the patient was brought to the cardiac catheterization laboratory in the fasting, nonsedated state. Bilateral groins were prepped and draped in the usual sterile fashion. Two percent lidocaine was infiltrated over the right anterior groin for local anesthesia. Using a micropuncture needle, the right radial artery was accessed via the modified Seldinger technique. A 6-Czech sheath was placed. Selective coronary angiography was performed using a TIG catheter. There was a concern for the distal left main for possible stenosis, and this was further interrogated with intravascular ultrasound. The left main was then cannulated with a 6-Czech JL3.5 guide catheter. He received heparin for therapeutic anticoagulation. A run through wire was placed in the distal LAD. Intravascular ultrasound using ely sh[place] eye [place] catheter was performed. Everything was subsequently removed. The catheter was removed over the wire. Hemostasis was achieved with a TR band. PROCEDURE COMPLICATIONS: None. PROCEDURE FINDINGS 1. The distal left main coronary artery has an angiographic 30% stenosis. Intravascular ultrasound revealed that this vessel was greater than 6 mm squared throughout its course deeming this not a significant stenosis. 2. The left anterior descending coronary artery has a mid 30% to 50% stenosis. 3. Left circumflex coronary artery is a dominant vessel and provides 3 obtuse marginal vessels in addition to a left posterior descending coronary artery. This is diffuse 30% to 50% proximal circumflex stenosis. 4. The right coronary artery is a small, nondominant vessel. There is an 80% to 90% mid-stenosis. The distal vessel is small, less than 2 mm. IMPRESSION AND RECOMMENDATIONS: The patient was found to have elevated troponins and dbtdq-rp-somqfiz renal disease, and declared end-stage renal disease and placed on hemodialysis. Given his elevated troponins, he underwent coronary angiography today. He has nonobstructive coronary disease in his left coronary system. The left main stenosis was not significantly visualized by intravascular ultrasound. The RCA itself is small, nondominant and has a severe stenosis, which will be medically managed. Job#: [id number] RI
[2018-09-24] MEDS: SIMETHICONE 80 MG CHEW PO PRN (14:04)
--- NOTE | 2018-09-24 14:30 | NUR ---
PROCESS COMPLETED. RT WRIST BAND REMOVED AND BANDAID PLACED. NO BLEEDING SWELLING OR IRRITATION.
--- NOTE | 2018-09-24 16:27 | NUR ---
PT SLEEPING SOUNDLY. AWAKENS EASILY. NO S/S OF PAIN AT THIS TIME.
--- NOTE | 2018-09-24 19:51 | NUR ---
CALLED AND HAD DR ARRIOLA PAGED TO CLARIFY IF HE WANTS TO CONTINUE HEPARIN 25,OOO/.45 NS AT 11ML/HR
--- NOTE | 2018-09-24 19:54 | NUR ---
DR ARRIOLA RETURNED PHONE CALL. NEW ORDER TO STOP THE HEPARIN 25,000/.45 NS FLUIDS
[2018-09-24] MEDS: SODIUM BICARBONATE 8.4% 150 ML in DEXTROSE 5% 1,000 ML IV SCH (21:39)
[2018-09-24] MEDS: ATORVASTATIN 40 MG TAB PO SCH (21:42)
[2018-09-25] VITALS (21 sets, daily range): BP systolic 94–155; BP diastolic 48–72
[2018-09-25] MEDS: HYDROCODONE/APAP 10MG-325MG TAB PO PRN ×6 (01:40→21:54)
--- NOTE | 2018-09-25 01:40 | NUR ---
PATIENT WANTED SOMETHING FOR PAIN AROUND 0115. PATIENT MEDICATION WAS PLACED IN MED CUP AND WAS PLACED IN PATIENTS HAND THEN PATIENT DROPPED MEDICATION AND HAD TO GET ANOTHER NURSE TO HELP TURN HIM TO FIND AND WASTE MEDICATION THEN ANOTHER PAIN MED PULLED AND OPENED IN FRONT OF HIM. PATIENT WAS VERY CONCERNED IF THIS WAS HIS MEDICATION I SHOWED HIM THE PACKET ALSO AND USED AN ONLINE PILL IDENTIFIER TO SHOW HIM THE MEDICATION HE WAS UPSET THAT HE IS NOT GETTING PAIN MED ROUTINE AND HE WAS GOING TO CALL HIS ATTENDING, I INFORMED HIM THAT I WILL CALL HIS ATTENDING. I CALLED AND SPOKE TO DR HADLEY AND INFORMED HIM THAT PATIENT PAIN LEVEL IS UNCONTROLLED AND THAT PATIENT WANTS HIS PAIN MED ORDERED ROUTINE. DR HADLEY STATED HE DOES NOT WANT HIS NORCO ORDERED ROUTINE AND TO KEEP IT PRN LIKE IT IS ORDERED DUE TO HIS BLOOD PRESSURE WAS ON THE LOWER SIDE. I WENT AND EXPLAINED TO THE PATIENT WHAT HIS ATTENDING STATED. PATIENT STILL VERY UPSET. I WILL CONTINUE TO MONITOR HIM CLOSELY AND TAKE ANOTHER NURSE WITH ME INTO THE ROOM WHEN CHECKING ON HIM
--- NOTE | 2018-09-25 04:00 | NUR ---
PATIENTS DAUGHTER YASMIN CALLED STATING THAT THE PATIENT CALLED HER REQUESTING HER TO BRING HIS PAIN MEDICATION FROM HOME UP TO THE HOSPITAL FOR HIM TO TAKE IT AND THE DAUGHTER INFORMED ME THAT SHE WAS ON HER WAY UP HERE TO GIVE IT TO HIM. I EXPLAINED TO HER WHY HE IS UPSET AND WHAT HAPPENED EARLIER AND THAT I DID CALL HIS ATTENDING TO SEE IF MED CAN BE CHANGED ROUTINE AND WHY DR HADLEY HAD ORDERED IT PRN. I ALSO INFORMED HER THAT HE CAN NOT BE TAKING HIS HOME PAIN MEDICATION WHEN WE ARE MEDICATING HIM HERE. SHE STATED SHE UNDERSTOOD. INFORMED CHARGE NURSE ABDIRASHID OF THIS SITUATION AND SHE WAS INFORMED OF WHAT HAD EARLIER. WILL CLOSELY BE MONITORED AND WILL INFORM DAYSHIFT NURSE TO WATCH TO SEE IF ANY EXTRA MEDICATION FROM HOME IS GIVEN TO PATIENT.
[2018-09-25 05:08] LABS: BASOPHILS % 0.2 % (0.0-1.0); EOSINOPHILS # (AUTO) 0.3 (0.0-0.4); EOSINOPHILS % 3.5 % (0.0-6.0); HEMATOCRIT 30.1 % (38.2-49.6); HEMOGLOBIN 9.1 g/dL (14.0-18.0); LYMPHOCYTES # (AUTO) 0.5 (1.0-3.2); LYMPHOCYTES % 5.2 % (18.0-39.1); MEAN CORPUSCULAR HEMOGLOBIN 30.7 pg (28-32); MEAN CORPUSCULAR HGB CONC 30.2 g/dL (31-35); MEAN CORPUSCULAR VOLUME 101.7 fL (81-99); MONOCYTES # (AUTO) 0.7 (0.2-0.8); NEUTROPHILS # (AUTO) 7.1 (2.1-6.9); NEUTROPHILS % 82.5 % (38.7-80.0); PLATELET COUNT 119 x10e3/uL (140-360); RED BLOOD COUNT 2.96 x10e6/uL (4.3-5.7); RED CELL DISTRIBUTION WIDTH 15.4 % (11.7-14.4)
[2018-09-25 05:28] LABS: ANION GAP 19.3 mmol/L (8-16); CREATININE, SERUM 6.55 mg/dL (0.72-1.25); POTASSIUM 4.3 mmol/L (3.5-5.1)
[2018-09-25 05:29] LABS: CALCIUM 6.7 mg/dL (8.4-10.2)
[2018-09-25] MEDS: PANTOPRAZOLE SOD 40 MG TABEC PO SCH (07:30)
[2018-09-25] MEDS: SUCRALFATE 1 GM/10 ML SUSP PO SCH ×2 (07:30→16:47)
[2018-09-25] MEDS ORDERED: SODIUM CHLORIDE 0.9% 1000ML 2,000 ML ONE (08:50)
[2018-09-25] MEDS: PIPER-TAZ 3.375 GM 50 ML IV SCH ×2 (08:51→20:21)
[2018-09-25] MEDS: DOCUSATE SODIUM LIQD 100 MG/10 ML UDC PO SCH ×2 (08:51→16:47)
[2018-09-25] MEDS: ASPIRIN 81 MG ENTERIC COATED PO SCH (08:51)
[2018-09-25] MEDS: METOPROLOL TARTRATE 25 MG TAB PO SCH ×2 (08:52→16:47)
[2018-09-25] MEDS: NYSTATIN 15 GM POWDER UD BTL TOP SCH ×2 (08:53→20:21)
[2018-09-25] MEDS ORDERED: ALBUMIN 25% 12.5GM 50 ML IV PRN (12:45)
[2018-09-25] MEDS ORDERED: MANNITOL 25% 12.5GM/50 ML VIAL IV PRN (12:45)
[2018-09-25] MEDS ORDERED: HEPARIN SOD (PORCINE) 1000 UNIT/ML SDV IV PRN (12:45)
[2018-09-25] MEDS: SODIUM BICARBONATE 8.4% 150 ML in DEXTROSE 5% 1,000 ML IV SCH (13:00)
[2018-09-25] MEDS ORDERED: SODIUM CHLORIDE 0.9% 250ML 500 ML IV PRN (14:45)
[2018-09-25] MEDS: ONDANSETRON HCL INJ 2 MG/ML VIAL IV PRN (14:46)
--- NOTE | 2018-09-25 15:10 | NUR ---
CM SPOKE TO RN REGARDING PATIENT POC. PATIENT POST CATH DAY 1. PATIENT WITH 99% OCCLUSION IN RCA AND 30% OCCLUSION IN LAD. NO SCHEDULED INTERVENTIONS AT THIS TIME. PATIENT ON 5.0 L NC AND WEANING TOLERATED DUE TO CARDIAC CATH, RENAL FUNCTION ELEVATED. PATIENT GETTING DIALYSIS FOR THE 4TH DAY STRAIGHT TODAY. PENDING MD ROUNDS FOR POC. DR. MORTON PT RECOMMENDS RETIREMENT FACILITY. MD AWARE. PENDING PATIENT STABILITY TO RECEIVE SNF REFERRAL.
--- NOTE | 2018-09-25 16:10 | NUR ---
Dialysis complete and patient tolerated it well. Three liters taken off and tolerated well. Dr. Maddox here to see patient.,
[2018-09-25] MEDS ORDERED: BISACODYL 10 MG SUPP PR PRN (17:30)
[2018-09-25] MEDS ORDERED: PROPOFOL IV EMULSION 10MG/ML 100 ML ONE (19:27)
[2018-09-25] MEDS: ATORVASTATIN 40 MG TAB PO SCH (20:21)
--- NOTE | 2018-09-25 20:25 | NUR ---
DR TOBIAS ROUNDED. NEW ORDERS RECEIVED TO STOP NA-BICARB FLUIDS AND TO CALL DIALYSIS CENTER TO REMIND THEM THAT THIS PATIENT TO BE DIALYZED IN THE AM
--- NOTE | 2018-09-25 21:09 | NUR ---
RECTAL SUPPOSITORY GIVEN EARLIER TO ASSIST IN HAVING A BM. PATIENT HAD A HARD TIME PASSING STOOL. TRIED TO ASSIST IN STIMULATING RECTUM AND REMOVING THE STOOL HOWEVER ONLY SMALL AMTS OF SMALL HARD STOOL REMOVED. PATIENT IS IMPACTED. CALLING ATTENDING N
--- NOTE | 2018-09-25 21:19 | NUR ---
SPOKE TO DR HADLEY INFORMING HIM OF PATIENT HAVING IMPACTION AND UNABLE TO REMOVE WITH ASSISTANCE. ORDER FOR SOAP SUDS ENEMA
--- NOTE | 2018-09-25 22:33 | NUR ---
PATIENT STILL UNABLE TO PASS THE IMPACTED STOOL AND ONCE AGAIN I ATTEMPTED TO DISIMPACT THE RECTUM AREA AND WAS UNSUCCESSFUL. CALLED DR HADLEY TO INFORM HIM AND SEE IF ANY OTHER INTERVENTIONS/ORDERS HE MAY WANT TO ORDER FOR THE PATIENT. VORB TO GIVE ANOTHER SOAP SUDS ENEMA NOW AND AGAIN IN THE MORNING, AND CONTINUE TO ASSIST IN MANUAL DISIMPACT TILL CLEAR OF STOOL
[2018-09-26] VITALS (19 sets, daily range): BP systolic 89–173; BP diastolic 45–90
[2018-09-26] MEDS: HYDROCODONE/APAP 10MG-325MG TAB PO PRN ×4 (02:01→18:54)
[2018-09-26 05:24] LABS: BASOPHILS % 0.2 % (0.0-1.0); EOSINOPHILS # (AUTO) 0.1 (0.0-0.4); EOSINOPHILS % 0.7 % (0.0-6.0); HEMATOCRIT 32.1 % (38.2-49.6); HEMOGLOBIN 9.8 g/dL (14.0-18.0); LYMPHOCYTES # (AUTO) 0.4 (1.0-3.2); LYMPHOCYTES % 2.4 % (18.0-39.1); MEAN CORPUSCULAR HGB CONC 30.5 g/dL (31-35); MEAN CORPUSCULAR VOLUME 101.6 fL (81-99); MONOCYTES % 6.6 % (4.4-11.3); NEUTROPHILS # (AUTO) 13.7 (2.1-6.9); NEUTROPHILS % 89.5 % (38.7-80.0); PLATELET COUNT 131 x10e3/uL (140-360); RED BLOOD COUNT 3.16 x10e6/uL (4.3-5.7)
[2018-09-26 05:49] LABS: ALBUMIN 2.6 g/dL (3.5-5.0); ALBUMIN/GLOBULIN RATIO 0.6 (0.8-2.0); ANION GAP 19.4 mmol/L (8-16); CALCIUM 7.4 mg/dL (8.4-10.2); CREATININE, SERUM 5.36 mg/dL (0.72-1.25); POTASSIUM 4.4 mmol/L (3.5-5.1)
--- NOTE | 2018-09-26 07:00 | NUR ---
BEDSIDE REPORT RECVD. ASSESSMENT COMPLETED AND RECORDED. PT SLEEPING SOUNDLY DIFFICULT TO AROUSE. NO S/S OF PAIN. VSS AND RECORDED.
--- NOTE | 2018-09-26 08:49 | NUR ---
DR MCCORMICK TO BEDSIDE MAKING ROUNDS. PT CONTINUES SLEEPING AWAKENS FOR SHORT TIME AND RETURNS TO SLEEP. CALLED FRESENIOUS FOR PT DYALISIS FOR TODAY.
[2018-09-26] MEDS: METOPROLOL TARTRATE 25 MG TAB PO SCH ×2 (09:00→16:02)
[2018-09-26] MEDS: SUCRALFATE 1 GM/10 ML SUSP PO SCH ×2 (09:45→15:34)
[2018-09-26] MEDS: ASPIRIN 81 MG ENTERIC COATED PO SCH (09:45)
[2018-09-26] MEDS: DOCUSATE SODIUM LIQD 100 MG/10 ML UDC PO SCH ×2 (09:45→16:01)
[2018-09-26] MEDS: PANTOPRAZOLE SOD 40 MG TABEC PO SCH (09:45)
[2018-09-26] MEDS: NYSTATIN 15 GM POWDER UD BTL TOP SCH ×2 (09:45→20:28)
--- NOTE | 2018-09-26 10:38 | Progress Note ---
DATE: September 26, 2018 SUBJECTIVE: Still in the ICU. Some pain, requiring quite bit of pain medications, still dyspneic, had some swelling. Chest x-ray still showing fluid overload as of 2 day ago. OBJECTIVE GENERAL: On examination, laying in bed, appears drowsy. VITAL SIGNS: Temperature 99.7, blood pressure 120/67. CHEST: Scattered rhonchi. ABDOMINAL: Benign. EXTREMITIES: Edema ++ on sacrum. NEUROLOGIC: Sleepy. LABS: Shows a hemoglobin of 9.8. Creatinine of 5.37 and BUN of 37. ASSESSMENT 1. Acute kidney injury. 2. Fluid overload. 3. At this point, electrolytes appear reasonable. PLAN: Hemodialysis today, 4 hour run, 2 potassium bath, blood flow rate 350 mL per minute, dialysate flow rate 500 mL per minute. We tried to remove 3 to 4 liters of fluid, on dialysis. We will follow along. Job#: [id number] BRAD
--- NOTE | 2018-09-26 13:03 | Progress Note ---
DATE: September 26, 2018 CARDIOLOGY PROGRESS NOTE SUBJECTIVE: Patient feels well, getting dialysis. Denies any chest pain or shortness of breath. OBJECTIVE VITAL SIGNS: Temperature is 97.6, heart rate is 65, respirations are 16, blood pressure is 123/58, oxygen saturation is 96% on 5 liters nasal cannula. GENERAL: Well-appearing elderly man, in no apparent distress. CARDIOVASCULAR: Regular rate and rhythm. LUNGS: Clear to auscultation. ABDOMEN: Soft, obese, nontender. EXTREMITIES: Edema. NEUROLOGICAL: No focal deficits noted. CURRENT CARDIOVASCULAR MEDICATIONS: Reviewed. LABORATORY DATA: Reviewed. IMPRESSION 1. Coronary artery disease. 2. Hzgmd-cu-kvexbma systolic and diastolic congestive heart failure. 3. Yahyj-ef-fprforu kidney disease, currently on dialysis. 4. Diabetes mellitus. 5. Obesity. 6. Hypertension. PLAN: Coronary angiography showed nonobstructive CAD. Continue aggressive medical management. Continue metoprolol. Hold lisinopril given current acute kidney injury. If okay with nephrology, would like to start lisinopril for his congestive heart failure. Thank you for the consultation. We will continue to follow. Job#: [id number] JOHN
--- NOTE | 2018-09-26 14:24 | NUR ---
PT COMPLETING DYALISIS, TOLERATED FAIR. 4000ML REMOVED.
[2018-09-26] MEDS: PIPER-TAZ 3.375 GM 50 ML IV SCH ×2 (14:56→20:28)
--- NOTE | 2018-09-26 15:33 | NUR ---
PT VERBALIZES PAIN IMPROVEMENT.
--- NOTE | 2018-09-26 18:56 | NUR ---
PT C/O OF SEVERE CONSTIPATION. PT INSTRUCTED S/E OF HYDROCODONE BEING CONSTIPATION HE STATES HE DOES NOT BELIEVE THIS. CALLED DR MORTON AND ORDERS OBTAINED. REPORT GIVEN TO ONCOMING NURSE.
[2018-09-26] MEDS: ATORVASTATIN 40 MG TAB PO SCH (20:28)
--- NOTE | 2018-09-26 22:31 | Progress Note ---
DATE: September 26, 2018 COVERING FOR: Dr. Oscar. OVERNIGHT: Patient has not required BiPAP. Now, he is resting comfortably in bed. He had severe constipation. REVIEW OF SYSTEMS: Denies any fever, chills, sweats, nausea, vomiting, diarrhea, headache, chest pain. OBJECTIVE VITAL SIGNS: Reviewed. GENERAL: A tired-appearing man, resting in bed. HEENT: Anicteric. CARDIOVASCULAR: Normal S1, S2. LUNGS: He has markedly reduced breath sounds throughout. ABDOMEN: Soft, nontender, nondistended. : He has scrotum with 1+ edema. He has a Ayala in place. EXTREMITIES: 2+ leg edema bilaterally. SKIN: Dry. PSYCHIATRIC: Flat affect. NEUROLOGICAL: Alert and appropriate, moves all extremities. LABS: Reviewed. MEDICATIONS: Reviewed. ASSESSMENT: This is a 73-year-old man; 1. Acute respiratory failure, requiring bilevel positive airway pressure. 2. Scrotal edema. 3. Acute exacerbation of diastolic congestive heart failure. 4. History of peripheral edema. 5. Hypertension. 6. Fecal impaction. 7. End-stage renal disease. He is on hemodialysis. 8. Morbid obesity. 9. Chronic pain syndrome. 10. Diabetes mellitus, type 2. 11. Diabetic nephropathy. 12. Physical deconditioning. 13. Hypocalcemia. 14. Urinary tract infection. 15. Bacteremia with Micrococcus species with negative repeat cultures. 16. Sepsis with bacteremia. PLAN 1. He is on nasal cannula oxygen as needed. 2. Continue Zosyn for Micrococcus bacteremia. 3. Bolus of fluids if needed, 4 liters of fluid removal overnight during dialysis; however, patient does have periods of hypotension. 4. Physical therapy consultation. 5. We need hemoglobin A1c and lipid panel. 6. Physical therapy consultation. 7. We will use molasses enema to assist in fecal impaction resolution. 8. Monitor fluid status, Is and Os. 9. For his chronic pain syndrome, we will reduce his narcotics as this has worsened his fecal impaction. 10. We will use nystatin for his fungal infection with intertriginous folds of the groin. 11. We will use SCDs for DVT prophylaxis and continue with PPI. 1. Disposition: Monitor closely in the ICU. Critical care time more than 35 minutes. Job#: [id number] LPA
[2018-09-27] VITALS (21 sets, daily range): BP systolic 67–137; BP diastolic 49–93
[2018-09-27] MEDS: HYDROCODONE/APAP 5MG-325MG TAB PO PRN ×2 (04:24→12:54)
[2018-09-27 04:33] LABS: BASOPHILS % 0.3 % (0.0-1.0); EOSINOPHILS # (AUTO) 0.4 (0.0-0.4); EOSINOPHILS % 2.3 % (0.0-6.0); LYMPHOCYTES # (AUTO) 0.6 (1.0-3.2); LYMPHOCYTES % 3.6 % (18.0-39.1); MONOCYTES # (AUTO) 1.1 (0.2-0.8); MONOCYTES % 7.1 % (4.4-11.3); NEUTROPHILS # (AUTO) 13.5 (2.1-6.9); NEUTROPHILS % 86.1 % (38.7-80.0)
[2018-09-27 04:56] LABS: ALBUMIN 2.4 g/dL (3.5-5.0); ALBUMIN/GLOBULIN RATIO 0.5 (0.8-2.0); CALCIUM 7.5 mg/dL (8.4-10.2); CREATININE, SERUM 4.93 mg/dL (0.72-1.25)
[2018-09-27 05:19] LABS: HEMATOCRIT 31.3 % (38.2-49.6); HEMOGLOBIN 9.7 g/dL (14.0-18.0); MEAN CORPUSCULAR HEMOGLOBIN 31.7 pg (28-32); MEAN CORPUSCULAR VOLUME 102.3 fL (81-99); RED BLOOD COUNT 3.06 x10e6/uL (4.3-5.7)
[2018-09-27 05:20] LABS: PLATELET COUNT 125 x10e3/uL (140-360); RED CELL DISTRIBUTION WIDTH 14.8 % (11.7-14.4)
[2018-09-27] MEDS: SUCRALFATE 1 GM/10 ML SUSP PO SCH ×2 (08:10→17:03)
[2018-09-27] MEDS: DOCUSATE SODIUM LIQD 100 MG/10 ML UDC PO SCH ×2 (08:10→17:03)
[2018-09-27] MEDS: ASPIRIN 81 MG ENTERIC COATED PO SCH (08:10)
[2018-09-27] MEDS: PANTOPRAZOLE SOD 40 MG TABEC PO SCH (08:10)
[2018-09-27] MEDS: METOPROLOL TARTRATE 25 MG TAB PO SCH ×2 (08:11→17:00)
[2018-09-27] MEDS: NYSTATIN 15 GM POWDER UD BTL TOP SCH ×2 (08:37→20:32)
[2018-09-27] MEDS: PIPER-TAZ 3.375 GM 50 ML IV SCH ×2 (08:37→20:32)
--- NOTE | 2018-09-27 10:35 | NUR ---
CM SPOKE TO PATIENT AT BEDSIDE REGARDING [facility]UTE CARE PLACEMENT PER MD ORDER. PATIENT VERBALLY UNDERSTOOD SERVICES AND DIFFERENCE BETWEEN CUSTODIAL FACILITIES AND [facility] ACUTE CARE. PATIENT STATES HE WOULD LIKE TO DISCUSS WITH DAUGHTER PRIOR TO CHOOSING A FACILITY. CM WROTE DOWN CHOICES, ADDRESSES AND PHONE NUMBERS FOR PATIENT AND PATIENT DAUGHTER TO GO OVER AND HAVE CHOICE BY 10 AM ON 09/28.
[2018-09-27] MEDS: SENNOSIDES 8.6 MG TAB PO SCH (17:03)
--- NOTE | 2018-09-27 17:36 | NUR ---
IM- Progress Note O/N; pain controlled REVIEW OF SYSTEMS: Denies any fever, chills, sweats, nausea, vomiting, diarrhea, headache, chest pain. OBJECTIVE VITAL SIGNS: Reviewed. GENERAL: A tired-appearing man, resting in bed. HEENT: Anicteric. CARDIOVASCULAR: Normal S1, S2. LUNGS: He has markedly reduced breath sounds throughout. ABDOMEN: Soft, nontender, nondistended. : He has scrotum with 1+ edema. He has a Ayala in place. EXTREMITIES: 2+ leg edema bilaterally. SKIN: Dry. PSYCHIATRIC: Flat affect. NEUROLOGICAL: Alert and appropriate, moves all extremities. LABS: Reviewed. MEDICATIONS: Reviewed. ASSESSMENT: This is a 73-year-old man; 1. Acute respiratory failure, requiring bilevel positive airway pressure. 2. Scrotal edema. 3. Acute exacerbation of diastolic congestive heart failure. 4. History of peripheral edema. 5. Hypertension. 6. Fecal impaction. 7. End-stage renal disease. He is on hemodialysis. 8. Morbid obesity. 9. Chronic pain syndrome. 10. Diabetes mellitus, type 2. 11. Diabetic nephropathy. 12. Physical deconditioning. 13. Hypocalcemia. 14. Urinary tract infection. 15. Bacteremia with Micrococcus species with negative repeat cultures. 16. Sepsis with bacteremia. PLAN 1. He is on nasal cannula oxygen as needed. 2. Continue Zosyn for Micrococcus bacteremia. 3. Bolus of fluids if needed, 4 liters of fluid removal overnight during dialysis; however, patient does have periods of hypotension. 4. Physical therapy consultation. 5. We need hemoglobin A1c and lipid panel. 6. Physical therapy consultation. 7. We will use molasses enema to assist in fecal impaction resolution. 8. Monitor fluid status, Is and Os. 9. For his chronic pain syndrome, we will reduce his narcotics as this has worsened his fecal impaction. 10.We will use nystatin for his fungal infection with intertriginous folds of the groin. 11. We will use SCDs for DVT prophylaxis and continue with PPI. 12. Disposition: Monitor closely in the ICU. Critical care time more than 35 minutes. doing well; cont O2 support and diuretics; move to Med/Tele. Nasim Oakley MD, PhD.
--- NOTE | 2018-09-27 20:30 | NUR ---
Report called to rodríguez. Pt was also notified that he will be transferred to [facility]
[2018-09-27] MEDS: ATORVASTATIN 40 MG TAB PO SCH (20:32)
[2018-09-27] MEDS: HYDROCODONE/APAP 10MG-325MG TAB PO PRN (20:56)
--- NOTE | 2018-09-27 22:06 | NUR ---
PT ARRIVING TO UNIT VIA BED, PT ALERT AND ORIENTED, SITTING UP IN BED WITH TELEMETRY APPLIED, INDWELLING HOLLINS NOTED, DENIES NEEDS, CALL LIGHT IN REACH, INSTRUCTED TO CALL WITH NEEDS
--- NOTE | 2018-09-27 22:15 | NUR ---
Pt was transferred to [facility] via hospital bed accompanied by 2 RNs. Pt was transported with portable 02 and tele. He was connected to [place] 02 in room and was rec'd by ILIA Lopez
[2018-09-28] VITALS (7 sets, daily range): BP systolic 101–117; BP diastolic 50–60
[2018-09-28] MEDS: HYDROCODONE/APAP 10MG-325MG TAB PO PRN ×4 (03:00→21:05)
--- NOTE | 2018-09-28 05:34 | NUR ---
PT RESTING IN BED WITH EYES CLOSED, NO DISTRESS NOTED, CALL LIGHT IN REACH, MANPOWER DEVELOPMENT MANAGER IN PLACE
[2018-09-28] MEDS: PANTOPRAZOLE SOD 40 MG TABEC PO SCH (07:30)
[2018-09-28] MEDS: SUCRALFATE 1 GM/10 ML SUSP PO SCH ×2 (08:40→17:57)
[2018-09-28] MEDS: PIPER-TAZ 3.375 GM 50 ML IV SCH (09:00)
[2018-09-28] MEDS: NYSTATIN 15 GM POWDER UD BTL TOP SCH ×2 (09:00→20:45)
[2018-09-28] MEDS: METOPROLOL TARTRATE 25 MG TAB PO SCH ×2 (09:00→17:58)
[2018-09-28] MEDS: SENNOSIDES 8.6 MG TAB PO SCH ×2 (09:00→17:58)
[2018-09-28] MEDS: DOCUSATE SODIUM LIQD 100 MG/10 ML UDC PO SCH ×2 (09:00→17:57)
--- NOTE | 2018-09-28 09:00 | NUR ---
assessment complete no distress noted,updated on poc vocied understanding, l hand 18g no ss of infiltration noted, r hd cath, romero to gravity to yellow urine noted, dialysis in progress at this time, no other co voiced call light in reach will continue to monitor
[2018-09-28] MEDS: ASPIRIN 81 MG ENTERIC COATED PO SCH (10:36)
--- NOTE | 2018-09-28 14:21 | Progress Note ---
DATE: September 28, 2018 CARDIOVASCULAR PROGRESS NOTE: SUBJECTIVE: No major events overnight. Getting dialyzed today. OBJECTIVE VITAL SIGNS: Temperature 97.5, pulse 66, respiratory rate 20, blood pressure 115/55, satting 98% on nasal cannula. GENERAL: Elderly man in no acute distress. CARDIOVASCULAR: Regular rate and rhythm. No murmurs, rubs or gallops. Palpable carotid pulses. Palpable radial pulses. LUNGS: Clear to auscultation bilaterally. ABDOMEN: Soft, obese, nontender. EXTREMITIES: 2+ edema, no varicosities. NEURO AND PSYCH: Alert and oriented to person, place and time. Normal affect. CURRENT CARDIOVASCULAR MEDICATIONS: Reviewed. LABORATORY DATA: Reviewed. IMPRESSION: 1. Nonobstructive coronary artery disease. 2. Rpszi-bl-rcdioud systolic and diastolic congestive heart failure. 3. Mfslq-vv-doinmkf kidney disease, currently on dialysis. 4. Diabetes. 5. Obesity. 6. Hypertension. PLAN: Coronary angiography performed last week, showing nonobstructive CAD. Continue medical therapy for his heart failure and aggressive risk-factor control. Patient is feeling better with volume management with dialysis. Thank you for this consult. Will continue to follow. Job#: [id number] EV
--- NOTE | 2018-09-28 15:55 | NUR ---
Nutrition Screen Note RD Recommendation for Physician: -Continue renal diet as ordered -Order Nepro x1 daily per pt request (Notified RN Kady) Plan of Care: RD following, monitoring for tolerance and adequacy Nutrition reason for involvement: Follow up Primary Diagnose(s): CHF, hypertensive emergency PMH: DM, CHF, HTN, CKD (per pt) Ht: 68in Wt: 302.44lb BMI: 46kg/m2 IBW: 154lb RD Assessment: (09/28) Chart reviewed. Labs and meds reviewed. 73 yo M, who is admitted for CHF. Visited pt in the room. Pt was on HD. Pt reports appetite not so good despite RN recorded 75-100% PO intake for the last 2 days. No GI complains noted. LBM 09/28. Pt denies any chewing or swallowing difficulty. No recent weight loss reported. Will continue to monitor and follow. (09/21) Chart reviewed. Labs and meds reviewed. 73yo M, who is admitted for CHF. Visited pt in the room. Pt is currently on IV lasix. 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 Pt is currently NPO but eager to eat. No recent weight loss reported. No GI complains noted. LBM 09/19. Pt denies any chewing or swallowing difficulty. Will continue to monitor and follow. Current Diet: renal diet Malnutrition Evaluation (09/21/18) The patient does not meet criteria for a specified degree of malnutrition at this time. Will re-evaluate at follow-up as appropriate. Diet Education Needs Assessment: Diet education is not indicated. Nutrition Care Level: low Signed: Alyssa Lucio, MS, RD, LD
--- NOTE | 2018-09-28 16:30 | NUR ---
dr moraes at bedside, informed of pt low output no new orders at this time
--- NOTE | 2018-09-28 19:03 | NUR ---
IM- Progress Note O/N; pain controlled REVIEW OF SYSTEMS: Denies any fever, chills, sweats, nausea, vomiting, diarrhea, headache, chest pain. OBJECTIVE VITAL SIGNS: Reviewed. GENERAL: A tired-appearing man, resting in bed. HEENT: Anicteric. CARDIOVASCULAR: Normal S1, S2. LUNGS: He has markedly reduced breath sounds throughout. ABDOMEN: Soft, nontender, nondistended. : He has scrotum with 1+ edema. He has a Ayala in place. EXTREMITIES: 2+ leg edema bilaterally. SKIN: Dry. PSYCHIATRIC: Flat affect. NEUROLOGICAL: Alert and appropriate, moves all extremities. LABS: Reviewed. MEDICATIONS: Reviewed. ASSESSMENT: This is a 73-year-old man; 1. Acute respiratory failure, requiring bilevel positive airway pressure. 2. Scrotal edema. 3. Acute exacerbation of diastolic congestive heart failure. 4. History of peripheral edema. 5. Hypertension. 6. Fecal impaction. 7. End-stage renal disease. He is on hemodialysis. 8. Morbid obesity. 9. Chronic pain syndrome. 10. Diabetes mellitus, type 2. 11. Diabetic nephropathy. 12. Physical deconditioning. 13. Hypocalcemia. 14. Urinary tract infection. 15. Bacteremia with Micrococcus species with negative repeat cultures. 16. Sepsis with bacteremia. PLAN 1. He is on nasal cannula oxygen as needed. 2. Continue Zosyn for Micrococcus bacteremia. 3. Bolus of fluids if needed, 4 liters of fluid removal overnight during dialysis; however, patient does have periods of hypotension. 4. Physical therapy consultation. 5. We need hemoglobin A1c and lipid panel. 6. Physical therapy consultation. 7. We will use molasses enema to assist in fecal impaction resolution. 8. Monitor fluid status, Is and Os. 9. For his chronic pain syndrome, we will reduce his narcotics as this has worsened his fecal impaction. 10.We will use nystatin for his fungal infection with intertriginous folds of the groin. 11. We will use SCDs for DVT prophylaxis and continue with PPI. 12. Disposition: Monitor closely in the ICU. Critical care time more than 35 minutes. 09/27 doing well; cont O2 support and diuretics; move to Med/Tele. 09/28 doing better; Non-obx CAD- medical mgmt; d/w daughter at bedside; cont supportive care; d/c planning; Nasim Oakley MD, PhD.
[2018-09-28] MEDS: ATORVASTATIN 40 MG TAB PO SCH (20:20)
--- NOTE | 2018-09-28 21:22 | NUR ---
Pt had moderate soft brown bm. Bijal care given. Pt tolerated well.
[2018-09-29] VITALS (8 sets, daily range): BP systolic 109–150; BP diastolic 53–73
[2018-09-29] MEDS: HYDROCODONE/APAP 10MG-325MG TAB PO PRN ×4 (03:08→21:09)
[2018-09-29] MEDS ORDERED: LANTUS 3ML100 UNITS/ SC (06:59)
[2018-09-29] MEDS: PANTOPRAZOLE SOD 40 MG TABEC PO SCH (07:30)
[2018-09-29] MEDS: SUCRALFATE 1 GM/10 ML SUSP PO SCH ×2 (07:30→17:24)
[2018-09-29] MEDS: DOCUSATE SODIUM LIQD 100 MG/10 ML UDC PO SCH ×2 (09:00→17:24)
[2018-09-29] MEDS: METOPROLOL TARTRATE 25 MG TAB PO SCH ×2 (09:00→17:24)
[2018-09-29] MEDS: SENNOSIDES 8.6 MG TAB PO SCH ×2 (09:00→17:25)
[2018-09-29] MEDS: ASPIRIN 81 MG ENTERIC COATED PO SCH (11:11)
[2018-09-29] MEDS: ATORVASTATIN 40 MG TAB PO SCH (21:08)
[2018-09-29] MEDS: SIMETHICONE 80 MG CHEW PO PRN (21:54)
[2018-09-30] VITALS (9 sets, daily range): BP systolic 86–172; BP diastolic 49–79
--- NOTE | 2018-09-30 00:20 | NUR ---
Pt resting comfortably. Denies any discomfort or distress at this time. Breathing even, unlabored. Skin warm, dry to touch. Will continue to monitor.
[2018-09-30] MEDS: HYDRALAZINE HCL 20 MG/ML VIAL IV PRN (00:55)
--- NOTE | 2018-09-30 00:55 | NUR ---
Pt with slight elevated bp. Administered prn bp medication. Pt stating he feels little nauseous. Administered prn anti-nausea medication. Pt stating he wants to be shaven. Shaved pt's face with electric clipper per pt's request.
[2018-09-30] MEDS: ONDANSETRON HCL INJ 2 MG/ML VIAL IV PRN (01:09)
[2018-09-30] MEDS: HYDROCODONE/APAP 10MG-325MG TAB PO PRN ×4 (04:00→21:51)
[2018-09-30 05:58] LABS: HEMATOCRIT 31.2 % (38.2-49.6); HEMOGLOBIN 9.6 g/dL (14.0-18.0); MEAN CORPUSCULAR HEMOGLOBIN 31.4 pg (28-32); MEAN CORPUSCULAR HGB CONC 30.8 g/dL (31-35); PLATELET COUNT 142 x10e3/uL (140-360); RED BLOOD COUNT 3.06 x10e6/uL (4.3-5.7); RED CELL DISTRIBUTION WIDTH 14.8 % (11.7-14.4)
[2018-09-30 06:27] LABS: ALBUMIN 2.4 g/dL (3.5-5.0); ALBUMIN/GLOBULIN RATIO 0.6 (0.8-2.0); ANION GAP 16.9 mmol/L (8-16); CALCIUM 7.3 mg/dL (8.4-10.2); CREATININE, SERUM 5.67 mg/dL (0.72-1.25); POTASSIUM 3.9 mmol/L (3.5-5.1)
--- NOTE | 2018-09-30 07:25 | NUR ---
Received report from night nurse. Patient resting in bed, no signs of distress noted. Call light within reach, bed in lowest position, wheels locked, side rails up. Will continue to monitor.
--- NOTE | 2018-09-30 08:16 | NUR ---
Patient informed and showed nurse bloody mucus. Will notify doctor during rounds.
[2018-09-30] MEDS: ASPIRIN 81 MG ENTERIC COATED PO SCH (08:54)
[2018-09-30] MEDS: PANTOPRAZOLE SOD 40 MG TABEC PO SCH (08:54)
[2018-09-30] MEDS: DOCUSATE SODIUM LIQD 100 MG/10 ML UDC PO SCH ×2 (08:54→16:56)
[2018-09-30] MEDS: SUCRALFATE 1 GM/10 ML SUSP PO SCH ×2 (08:54→16:56)
[2018-09-30] MEDS: METOPROLOL TARTRATE 25 MG TAB PO SCH ×2 (08:55→16:56)
[2018-09-30] MEDS: SENNOSIDES 8.6 MG TAB PO SCH ×2 (08:55→16:56)
--- NOTE | 2018-09-30 09:32 | NUR ---
Paged Dr. Oscar regarding patient complaint of dry blood in nose due to oxygen.
--- NOTE | 2018-09-30 09:59 | NUR ---
Patient A/O X3, breath sounds clear to auscultation, 5L NC. Bowel sounds present in all four quadrants, passing gas and had last BM 09/29/18. No complaints of pain at this time. Ecchymosis on right lower arm. Non-pitting edema on BLE. Indwelling romero in place, small amount of dark yellow urine noted. Patient complaining of dry blood in nose due to oxygen, Dr. Oscar notified.
[2018-09-30] MEDS ORDERED: SALINE 0.65% NAS SOLN 1 SPRAY BTL PRN (10:15)
--- NOTE | 2018-09-30 12:18 | Diagnostic Imaging Report ---
EXAM: XR CHEST 1 VIEW DATE: 09/30/2018 8:09 AM INDICATION: CHF COMPARISON: Chest radiograph 09/24/2018. FINDINGS: Lines and Tubes: Right IJ non tunneled central venous catheter terminates in the lower SVC. Heart and Mediastinum: Heart remains mildly enlarged. Lungs and Pleura: There is perihilar fullness and indistinctness of the pulmonary vasculature. Persistent moderate right and trace left pleural effusion. Bones and Soft Tissues: No acute findings. IMPRESSION: Persistent mild pulmonary interstitial edema and moderate right and trace left pleural effusion. Signed by: Dr. Nadine Cantrell MD on 09/30/2018 12:15 PM
--- NOTE | 2018-09-30 13:17 | Progress Note ---
DATE: September 30, 2018 CARDIOLOGY PROGRESS NOTE SUBJECTIVE: No major events overnight. OBJECTIVE VITAL SIGNS: Temperature 97.3, pulse 63, respiratory rate 22, blood pressure 146/69, satting 96% on nasal cannula. GENERAL: A elderly man in no acute distress. CARDIOVASCULAR: Regular rate and rhythm. No murmurs, rubs or gallops. Palpable carotid pulses. Palpable radial pulses. LUNGS: Clear to auscultation bilaterally. ABDOMEN: Soft, obese and nontender. EXTREMITIES: Two plus edema. No varicosities or ulcers. NEURO AND PSYCH: Alert and oriented to person, place, and time. Normal affect. CURRENT CARDIOVASCULAR MEDICATIONS: Reviewed. LABORATORY DATA: Reviewed. ASSESSMENT AND PLAN 1. Nonobstructive coronary artery disease. 2. Stmbg-iv-ejbqhwf systolic and diastolic congestive heart failure. 3. Elgyp-uz-pbgrdhy kidney disease, currently on dialysis. 4. Diabetes. 5. Obesity. 6. Hypertension. PLAN: Coronary angiography performed this admission and showed nonobstructive coronary artery disease. Continue medical therapy for his heart failure and aggressive risk factor control. Patient is feeling better with volume management with dialysis. Thank you for this consult. Will continue to follow. Job#: [id number] LITA
--- NOTE | 2018-09-30 14:29 | NUR ---
PT SIGNED CHOICE WITH [facility] WILL FAX CLINICALS TO [phone]
[2018-09-30] MEDS: ATORVASTATIN 40 MG TAB PO SCH (21:51)
[2018-10-01] MEDS: HYDROCODONE/APAP 10MG-325MG TAB PO PRN ×6 (02:00→22:37)
[2018-10-01 04:00] VITALS: BP 136/68
[2018-10-01 05:44] LABS: BASOPHILS # (AUTO) 0.1 (0.0-0.1); BASOPHILS % 0.5 % (0.0-1.0); EOSINOPHILS # (AUTO) 0.2 (0.0-0.4); EOSINOPHILS % 1.8 % (0.0-6.0); HEMATOCRIT 31.3 % (38.2-49.6); HEMOGLOBIN 9.5 g/dL (14.0-18.0); LYMPHOCYTES # (AUTO) 1.2 (1.0-3.2); LYMPHOCYTES % 11.7 % (18.0-39.1); MEAN CORPUSCULAR HEMOGLOBIN 31.1 pg (28-32); MEAN CORPUSCULAR HGB CONC 30.4 g/dL (31-35); MEAN CORPUSCULAR VOLUME 102.6 fL (81-99); MONOCYTES # (AUTO) 0.8 (0.2-0.8); MONOCYTES % 8.3 % (4.4-11.3); NEUTROPHILS # (AUTO) 7.5 (2.1-6.9); NEUTROPHILS % 76.3 % (38.7-80.0); PLATELET COUNT 151 x10e3/uL (140-360); RED BLOOD COUNT 3.05 x10e6/uL (4.3-5.7); RED CELL DISTRIBUTION WIDTH 14.7 % (11.7-14.4)
[2018-10-01 06:06] LABS: INR 0.91; PARTIAL THROMBOPLASTIN TIME 30.1 seconds (23.8-35.5); PROTHROMBIN TIME 13.1 seconds (11.9-14.5)
--- NOTE | 2018-10-01 07:23 | NUR ---
Received report on patient. Patient resting in bed, no signs of distress. Call light in reach, bed in lowest position, wheels locked, side rails up x2.
[2018-10-01] MEDS: SUCRALFATE 1 GM/10 ML SUSP PO SCH ×2 (07:30→17:06)
[2018-10-01 08:11] VITALS: BP 100/58
[2018-10-01 08:14] LABS: ANION GAP 14.9 mmol/L (8-16); CALCIUM 7.2 mg/dL (8.4-10.2); CREATININE, SERUM 7.06 mg/dL (0.72-1.25); POTASSIUM 3.9 mmol/L (3.5-5.1)
[2018-10-01] MEDS: METOPROLOL TARTRATE 25 MG TAB PO SCH ×2 (09:00→18:00)
[2018-10-01 09:23] VITALS: BP 109/58
--- NOTE | 2018-10-01 10:38 | NUR ---
Patient A/O X3. Clear breath sounds to auscultation. 5L NC. Bowel sounds present in all four quadrants, passing gas, last BM 09/29/18. Ayala in place with small amount of bright yellow urine present. Ecchymosis on right and left forearms. Non-pitting edema 2+ present in bilateral lower extremity. Will continue to monitor.
[2018-10-01 12:00] VITALS: BP 112/55
--- NOTE | 2018-10-01 13:21 | NUR ---
microbiology lab technician rescheduled for 0800 tomorrow morning. (10/02/18).
[2018-10-01] MEDS: PANTOPRAZOLE SOD 40 MG TABEC PO SCH (13:24)
[2018-10-01] MEDS: DOCUSATE SODIUM LIQD 100 MG/10 ML UDC PO SCH ×2 (13:31→18:00)
[2018-10-01] MEDS: SENNOSIDES 8.6 MG TAB PO SCH ×2 (13:31→18:00)
[2018-10-01] MEDS: ASPIRIN 81 MG ENTERIC COATED PO SCH (13:31)
[2018-10-01] MEDS: SODIUM CHLORIDE 0.9% 1000ML 2,000 ML IV PRN (13:49)
--- NOTE | 2018-10-01 15:16 | NUR ---
09/29 CHOICE LETTER ON CHART FOR [facility] NICOLE WITH [facility] NOTIFIED OF CONSULT EXPLAINED TO PT AND PT'S DAUGHTER THAT THERE IS A HIGH CHANCE THAT HE WILL BED DENIED FOR LTAC FROM INSURANCE DUE TO LACK OF CLINICAL INFORMATION 10/01 REC'D DENIAL TODAY FOR LTAC ORDERS FOR SNF
--- NOTE | 2018-10-01 15:46 | NUR ---
CALLED AND SPOKE WITH DAUGHTER ABOUT SNF PT DEFERRED TO FAMILY, HE DOES NOT WANT TO SPEAK ABOUT SNF. SHE DECIDED IF HE AGREES SHE WANTS HIM TO GO [facility]. SHE WILL COME TONIGHT TO SPEAK WITH HIM ABOUT THE OPTIONS HIS DIALYSIS AND HIS ABILITIES TO HAVE A SAFE DISCHARGE. SPENT 45 MINUTES ON PHONE WITH DAUGHTER.
[2018-10-01 15:51] LABS: CLARITY,URINE CLOUDY (CLEAR); COLOR,URINE YELLOW (YELLOW)
[2018-10-01 15:52] LABS: BILIRUBIN,URINE NEGATIVE (NEGATIVE); KETONES,URINE NEGATIVE (NEGATIVE); LEUKOCYTE ESTERASE ,URINE 2+ (NEGATIVE); NITRITE,URINE NEGATIVE (NEGATIVE); PROTEIN,URINE DIPSTICK 2+ (NEGATIVE); URINE UROBILINOGEN 0.2 mg/dL (0.2 - 1)
[2018-10-01 16:15] LABS: AMORPHOUS SEDIMENT,URINE MODERATE (FEW); BACTERIA,URINE MANY /HPF; WBC,URINE (MAN) 21-50 /HPF (0-5)
--- NOTE | 2018-10-01 16:16 | NUR ---
CM AND GLASS LAMINATING OPERATOR SPOKE WITH PT ABOUT DISCHARGE OPTIONS EXPLAINED THAT P.T. WILL COME ATTEMPT TO WORK WITH HIM TOMORROW AND IT IS IMPERITIVE THAT HE PARTICIPATE PT AGREES ALSO AGREES THAT IF HIS DTR WILL TOUR [facility] AND IT IS ACCEPTABLE THEN HE WILL GO THERE CM TO FOLLOW
[2018-10-01 17:26] VITALS: BP 145/58
[2018-10-01] MEDS: ATORVASTATIN 40 MG TAB PO SCH (20:17)
[2018-10-01 20:18] VITALS: BP 110/53
--- NOTE | 2018-10-01 21:57 | Progress Note ---
DATE: October 01, 2018 CARDIOLOGY PROGRESS NOTE SUBJECTIVE: No major events overnight. OBJECTIVE: VITAL SIGNS: Temperature 97.4, pulse 65, respiratory rate 22, blood pressure 110/53, satting 95% on nasal cannula. GENERAL: Elderly white man in no acute distress. CARDIOVASCULAR: Regular rate and rhythm. No murmurs, rubs, or gallops. Palpable carotid pulses. Palpable radial pulses. LUNGS: Coarse bilaterally. ABDOMEN: Soft, nontender, nondistended. NEURO AND PSYCH: Alert and oriented to person, place, and time. Normal affect. INPATIENT MEDICATIONS: Reviewed. LABORATORY DATA: Reviewed. ASSESSMENT: 1. Nonobstructive coronary artery disease. 2. Lklib-qf-lhqoefo systolic and diastolic congestive heart failure. 3. Zgsth-ef-sleitne kidney disease, currently on dialysis. 4. Diabetes. 5. Obesity. 6. Hypertension. PLAN: Coronary angiography showed nonobstructive coronary artery disease. Continue medical therapy and volume management with dialysis. Thank you for this consult. Will continue to follow. Job#: [id number]
[2018-10-02] VITALS (8 sets, daily range): BP systolic 110–148; BP diastolic 53–71
--- NOTE | 2018-10-02 07:00 | NUR ---
Received patient mid fowlers position, side rails upx3, call light within reach. AAOX3 to time, person, place. Respirations even and unlabored. O2 4L NC. Reminded patient of NPO status. Patient voiced understanding. Instructed patient to use call light for assistance. Will continue to monitor.
[2018-10-02] MEDS: SUCRALFATE 1 GM/10 ML SUSP PO SCH ×2 (07:30→16:30)
--- NOTE | 2018-10-02 07:30 | NUR ---
PCT Adriana attempted to remove pitcher from bedside due to NPO status. Patient raised voiced and said "Don't remove pitcher, my doctor said I can have it at bedside. I rinse my mouth with it. I am not swallowing it. Bring my pitcher back!" Instructed patient to lower voice. Adriana PCT brought pitcher back. Educated importance of being NPO. Patient states "I understand, I wont drink any water. I am just rinsing my mouth with it. "
[2018-10-02] MEDS: METOPROLOL TARTRATE 25 MG TAB PO SCH ×2 (07:55→16:41)
[2018-10-02] MEDS: SENNOSIDES 8.6 MG TAB PO SCH ×2 (07:56→16:41)
[2018-10-02] MEDS: PANTOPRAZOLE SOD 40 MG TABEC PO SCH (07:56)
[2018-10-02] MEDS: HYDROCODONE/APAP 10MG-325MG TAB PO PRN ×4 (07:56→20:40)
[2018-10-02] MEDS: DOCUSATE SODIUM LIQD 100 MG/10 ML UDC PO SCH ×2 (07:56→16:40)
[2018-10-02] MEDS: ASPIRIN 81 MG ENTERIC COATED PO SCH (09:00)
--- NOTE | 2018-10-02 09:00 | NUR ---
ENCOURAGED PT TO PARTICIPATE WITH P.T. TODAY HE IS AGREEABLE AWAIT DIALYSIS CHAIR PLAN: GET SNF CHOICE FROM DTR, TRANSFER WHEN DIALYSIS CHAIR SECURED AND PT ACCEPTED
--- NOTE | 2018-10-02 12:37 | NUR ---
Patient refuses to have Romero removed. Educated on importance of removing romero. Also made aware these are 's orders. Patient remains refusing to d/c romero. aware. states "Notify , he can decide if patient should keep romero"
--- NOTE | 2018-10-02 12:56 | NUR ---
aware patient refuses to d/c romero. Per "just chart patient refuses to d/c romero"
--- NOTE | 2018-10-02 13:28 | NUR ---
DAUGHTER YASMIN CALLED AND GAVE CHOICE VERBALLY OVER PHONE TO GO TO [facility]. FAXED CLINICALS FOR APPROVAL TO [phone] SPOKE WITH YONAS AT [facility] WHOM STATES HE WILL HAVE A CHAIR ON FRIDAY, FRIDAY AND SATURDAYS AT 5:45PM. STATES WILL SEND OVER FAX LETTER OF CONFIRMATION.
--- NOTE | 2018-10-02 13:30 | NUR ---
Patient refusing specialty bed. States " I cant do anything on this bed. I have been waiting for two days for this bed to be changed." Patient aware of importance of having specialty bed. Patient remains refusing specialty bed. Bed changed as requested.
[2018-10-02] MEDS ORDERED: LIDOCAINE HCL 1% LOCAL INJ 20 ML VIAL ONE (13:40)
[2018-10-02] MEDS ORDERED: SODIUM CHLORIDE 0.9% 1000ML 1,000 ML ONE (13:40)
[2018-10-02] MEDS ORDERED: HEPARIN SOD (PORCINE) 1000 UNIT/ML 30ML ONE (13:40)
[2018-10-02] MEDS ORDERED: SODIUM CHLORIDE 0.9% 500ML 500 ML ONE (13:40)
[2018-10-02] MEDS ORDERED: FENTANYL CITRATE/PF 100MCG/2 ML INJ ONE (13:41)
[2018-10-02] MEDS ORDERED: MIDAZOLAM HCL 2 MG/2 ML VIAL ONE (13:41)
--- NOTE | 2018-10-02 13:51 | NUR ---
Taken for procedure. No s/s of acute distress noted.
[2018-10-02] MEDS ORDERED: SODIUM CHLORIDE 0.9% 50ML 50 ML ONE (15:05)
[2018-10-02] MEDS ORDERED: CEFAZOLIN SOD 1 GM VIAL ONE (15:06)
--- NOTE | 2018-10-02 15:45 | NUR ---
Back from right tunnelled cath placement. AAOX3 to time, person, place. Respirations even and unlabored. Scant red blood noted to dressing. Will continue to monitor.
--- NOTE | 2018-10-02 15:55 | Progress Note ---
DATE: October 02, 2018 CARDIOLOGY PROGRESS NOTE SUBJECTIVE: No major events. OBJECTIVE VITAL SIGNS: Temperature 96.5, pulse 64, respiratory rate 22, blood pressure 135/63, satting 96% on nasal cannula. GENERAL: Elderly man in no acute distress. CARDIOVASCULAR: Regular rate and rhythm. No murmurs, rubs or gallops. Palpable carotid pulses. Palpable radial pulses. LUNGS: Clear to auscultation with decreased breath sounds bilaterally. ABDOMEN: Obese, soft, nontender. NEURO AND PSYCH: Alert and oriented to person, place and time. Normal affect. INPATIENT MEDICATIONS: Reviewed. LABORATORY DATA: Reviewed. IMAGING DATA: Reviewed. TELEMETRY DATA: Reviewed. Shows normal sinus rhythm. ASSESSMENT AND PLAN 1. Nonobstructive coronary artery disease. 2. Fnsqo-ak-upzywhg systolic and diastolic congestive heart failure. 3. Khaob-ag-ilcnypx kidney disease, now started on dialysis. 4. Diabetes. 5. Obesity. 6. Hypertension. PLAN: Continue current cardiovascular medications. Patient is awaiting placement at a dialysis chair for his regular dialysis now that he is declared ESRD. Otherwise doing well. Thank you for this consult. Will continue to follow. Job#: [id number]
--- NOTE | 2018-10-02 19:12 | NUR ---
Report given to oncoming nurse of patient's status
--- NOTE | 2018-10-02 19:45 | NUR ---
Pt had moderate sized soft brown bm. Bijal-care given. Pt is refusing to have this romero catheter d/troy. aware. Pt states he has had the romero catheter at home even before he came to this facility. Call light within reach. Will continue to monitor.
[2018-10-02] MEDS: ATORVASTATIN 40 MG TAB PO SCH (20:40)
[2018-10-03] MEDS: HYDROCODONE/APAP 10MG-325MG TAB PO PRN ×6 (00:40→20:45)
[2018-10-03 06:15] VITALS: BP 94/55
[2018-10-03] MEDS: SUCRALFATE 1 GM/10 ML SUSP PO SCH ×2 (07:30→16:30)
[2018-10-03 08:50] VITALS: BP 94/55
[2018-10-03] MEDS: DOCUSATE SODIUM LIQD 100 MG/10 ML UDC PO SCH ×2 (08:50→17:00)
[2018-10-03] MEDS: SENNOSIDES 8.6 MG TAB PO SCH ×2 (08:50→17:01)
[2018-10-03] MEDS: ASPIRIN 81 MG ENTERIC COATED PO SCH (08:50)
[2018-10-03] MEDS: PANTOPRAZOLE SOD 40 MG TABEC PO SCH (08:50)
--- NOTE | 2018-10-03 08:50 | NUR ---
assessment complete no distress noted, updated on poc vocied understanding, co pain 10/10 medicated with prn meds, Ayala to bsd with minimal yellow urine noted, bedside pulse ox monitor o2 sats 97%, r hd cath intact, l wrist 18g no ss of infiltration noted, no other co voiced call light in reach will continue to monitor
[2018-10-03 08:52] VITALS: BP 120/56
[2018-10-03] MEDS: METOPROLOL TARTRATE 25 MG TAB PO SCH ×2 (09:00→17:00)
--- NOTE | 2018-10-03 10:50 | NUR ---
pt able to expectorate bloody sinus drainage
--- NOTE | 2018-10-03 11:00 | NUR ---
informed dr castellanos of bloody expectorant from nasal passage. no new orders at this time
[2018-10-03] MEDS ORDERED: SODIUM CHLORIDE 0.9% 1000ML 2,000 ML IV PRN (12:45)
[2018-10-03] MEDS ORDERED: HEPARIN SOD (PORCINE) 1000 UNIT/ML SDV IV PRN (12:45)
[2018-10-03 13:14] VITALS: BP 109/53
[2018-10-03 18:16] VITALS: BP 134/63
--- NOTE | 2018-10-03 18:45 | Progress Note ---
DATE: October 03, 2018 CARDIOLOGY PROGRESS NOTE SUBJECTIVE: Patient denies chest pain or shortness of breath. OBJECTIVE VITAL SIGNS: Temperature 96.5 degrees, pulse 68, respiratory rate 22, blood pressure 109/53, oxygen saturation 99% on 2 liters nasal cannula. GENERAL: Obese gentleman, in no acute distress, awake and alert. LUNGS: Clear to auscultation other than decreased breath sounds at the bases. CARDIOVASCULAR: Normal rate. Regular rhythm. No murmur. ABDOMEN: Soft, nontender. EXTREMITIES: Edematous. CARDIAC MEDICATIONS 1. Metoprolol tartrate 25 mg p.o. b.i.d. 2. Aspirin 81 mg p.o. daily. 3. Atorvastatin 80 mg p.o. at bedtime. LABS: None today. IMPRESSION 1. Nonobstructive coronary artery disease. 2. Hmnav-ul-gziyibt systolic and diastolic heart failure. 3. Fdbyc-mr-ofuqwvu kidney disease, now declared end-stage renal disease. 4. Diabetes mellitus. 5. Hypertension. 6. Obesity. RECOMMENDATIONS: Continue current cardiac medications. Patient is awaiting his outpatient dialysis chair. No further cardiac evaluation is indicated at this time. Thank you for this consult. We will continue to follow. Job#: [id number] STEFANI
[2018-10-03 20:00] VITALS: BP 135/59
[2018-10-03] MEDS: OXYMETAZOLINE HCL 0.05% NAS 1 SPRAY BTL SCH (21:30)
[2018-10-03] MEDS: ATORVASTATIN 40 MG TAB PO SCH (21:30)
[2018-10-04] VITALS (8 sets, daily range): BP systolic 99–150; BP diastolic 50–76
--- NOTE | 2018-10-04 00:25 | NUR ---
Pt had large soft brown bm at this time. Pt cleaned and teressa-care given.
[2018-10-04] MEDS: HYDROCODONE/APAP 10MG-325MG TAB PO PRN ×6 (01:20→22:47)
--- NOTE | 2018-10-04 02:47 | NUR ---
Jose toledo per pt's request using the electric clipper.
[2018-10-04] MEDS: SUCRALFATE 1 GM/10 ML SUSP PO SCH ×2 (07:30→16:30)
[2018-10-04] MEDS: OXYMETAZOLINE HCL 0.05% NAS 1 SPRAY BTL SCH ×2 (09:00→20:26)
[2018-10-04] MEDS: ASPIRIN 81 MG ENTERIC COATED PO SCH (09:00)
[2018-10-04] MEDS: SENNOSIDES 8.6 MG TAB PO SCH ×2 (09:05→17:09)
[2018-10-04] MEDS: DOCUSATE SODIUM LIQD 100 MG/10 ML UDC PO SCH ×2 (09:05→17:10)
[2018-10-04] MEDS: PANTOPRAZOLE SOD 40 MG TABEC PO SCH (09:05)
[2018-10-04] MEDS: METOPROLOL TARTRATE 25 MG TAB PO SCH ×2 (09:05→17:09)
--- NOTE | 2018-10-04 09:05 | NUR ---
assessment complete no distress noted, denies pain at this time, edema noted to BLE, romero to bsd with minimal cloudy urine noted, o2 @ 4l nc, no other co voiced call light in reach will continue to monitor
--- NOTE | 2018-10-04 13:40 | NUR ---
PT ABLE TO EXPECTORATE BLOODY SINUS DRAINAGE, DR ROMERO AT BEDSIDE, AWARE OF BLOODY DRAINAGE,ORDERS GIVEN TO STOP ASA 81MGS. WILL CONTINUE TO MONITOR
[2018-10-04 14:30] LABS: BASOPHILS # (AUTO) 0.1 (0.0-0.1); BASOPHILS % 0.4 % (0.0-1.0); EOSINOPHILS # (AUTO) 0.1 (0.0-0.4); EOSINOPHILS % 0.6 % (0.0-6.0); HEMATOCRIT 32.1 % (38.2-49.6); HEMOGLOBIN 9.9 g/dL (14.0-18.0); LYMPHOCYTES # (AUTO) 0.6 (1.0-3.2); LYMPHOCYTES % 5.1 % (18.0-39.1); MEAN CORPUSCULAR HEMOGLOBIN 30.9 pg (28-32); MEAN CORPUSCULAR HGB CONC 30.8 g/dL (31-35); MEAN CORPUSCULAR VOLUME 100.3 fL (81-99); MONOCYTES % 7.9 % (4.4-11.3); NEUTROPHILS # (AUTO) 10.4 (2.1-6.9); NEUTROPHILS % 85.2 % (38.7-80.0); PLATELET COUNT 138 x10e3/uL (140-360); RED CELL DISTRIBUTION WIDTH 14.6 % (11.7-14.4)
[2018-10-04] MEDS: BACITRACIN ZINC 15 GM OINT TOP SCH (20:27)
[2018-10-04] MEDS: ATORVASTATIN 40 MG TAB PO SCH (20:27)
--- NOTE | 2018-10-04 20:31 | NUR ---
pt in bed with no c/o pain or discomfort, resp even and unlabored, expectorated bloody sinus drainage, pitting edema to BLE 3+, romero intact with very minimal amount of dark yellow cloudy urine, right tunneled cath intact, call light in reach
--- NOTE | 2018-10-04 22:04 | Progress Note ---
DATE: October 04, 2018 CARDIOLOGY PROGRESS NOTE SUBJECTIVE: Patient denies chest pain or shortness of breath. He is complaining of nosebleeds. OBJECTIVE: VITAL SIGNS: Temperature 96.7 degrees, pulse 71, respiratory rate 20, blood pressure 140/76, oxygen saturation 97% on 4 liters nasal cannula. GENERAL: Obese man, in no acute distress, awake and alert. LUNGS: Clear to auscultation other than decreased breath sounds at the bases. CARDIOVASCULAR: Normal rate, regular rhythm. No murmur. Normal S1 and S2. ABDOMEN: Soft, nontender. EXTREMITIES: Edematous. CARDIAC MEDICATIONS: Atorvastatin 80 mg p.o. nightly, metoprolol tartrate 25 mg p.o. b.i.d. LABS: WBC 12.25, hemoglobin 9.9, hematocrit 32.1, platelets 138,000. IMPRESSION: 1. Nonobstructive coronary artery disease. 2. Uslfx-wz-smfwkdg systolic and diastolic heart failure. 3. Bozol-ra-hmpomwd kidney disease, now declared end-stage renal disease. 4. Diabetes mellitus. 5. Hypertension. 6. Obesity. RECOMMENDATIONS: Continue current cardiac medications. Volume management per nephrology given patient has end-stage renal disease, on dialysis. No further cardiac evaluation is indicated at this time. Patient is awaiting outpatient dialysis chair placement. Thank you for this consult. We will continue to follow. Job#: [id number]
[2018-10-05] VITALS (8 sets, daily range): BP systolic 117–143; BP diastolic 59–66
[2018-10-05] MEDS: HYDROCODONE/APAP 10MG-325MG TAB PO PRN ×5 (05:22→22:10)
[2018-10-05] MEDS: SUCRALFATE 1 GM/10 ML SUSP PO SCH ×2 (07:30→16:09)
--- NOTE | 2018-10-05 07:41 | Consultation ---
DATE OF CONSULTATION: October 05, 2018 HOSPITAL CONSULTATION HISTORY OF PRESENT ILLNESS: I was kindly asked to see this 73-year-old man for evaluation of "bleeding from the sinus." Patient has a roughly 1 year history of intermittent bilateral epistaxis, worse on the right side. He reports since admission that it has become significantly worse with the sensation that he is "drowning" in his own blood. He reports sniffing and getting blood in the back of his throat and spitting up blood clots. He was begun on Starke nasal spray and bacitracin ointment and has improved significantly since initiation of therapy. He has a history of requiring anticoagulants, which were discontinued when the bleeding became worse. He also has a history of obstructive sleep apnea. HISTORY OF PRESENT ILLNESS, PAST MEDICAL HISTORY, AND PAST SURGICAL HISTORY: All reviewed in detail in the chart. PHYSICAL EXAMINATION: The tympanic membranes and external auditory canals were unremarkable. Nasal examination showed a mild S-shaped nasal septal deviation. There was blood on both sides of the nose. There were no discrete bleeding points identified. The nasal mucosa was unremarkable. He had a long soft palate and a large base of tongue. Visualized portions of posterior pharyngeal wall were normal. Specifically, there was no bleeding noted. There was no palpable cervical adenopathy. ASSESSMENT: 1. Epistaxis. 2. Nasal septal deviation. 3. Coagulopathy. 4. Obstructive sleep apnea. PLAN: 1. Continuation of Starke nasal spray 2 puffs each side of nose q.4h. while awake. 2. Bacitracin ointment to each nostril t.i.d. 3. I will perform bedside fiberoptic diagnostic rhinoscopy with consideration of silver nitrate cautery. Thank you very much. Job#: [id number]
--- NOTE | 2018-10-05 07:56 | NUR ---
WAS LEFT NOTE THAT ANOTHER CM GAVE PT HIS ACCEPTANCE LETTER FOR [facility] AND HE WOULD NEED TRANSPORTATION SET UP. THIS PT WILL BE GOING TO [facility] AND THEY WILL BE TRANSPORTING PT TO DIALYSIS. IF AND WHEN HE LEAVES [facility] THEN TRANSPORTATION WILL NEED TO BE SET UP WE DO NOT HAVE A CURRENT DISCHARGE DATE.
[2018-10-05] MEDS: SENNOSIDES 8.6 MG TAB PO SCH ×2 (09:00→16:55)
[2018-10-05] MEDS: METOPROLOL TARTRATE 25 MG TAB PO SCH ×2 (09:00→16:55)
[2018-10-05] MEDS: OXYMETAZOLINE HCL 0.05% NAS 1 SPRAY BTL SCH ×2 (09:00→21:40)
[2018-10-05] MEDS: BACITRACIN ZINC 15 GM OINT TOP SCH ×3 (09:00→21:40)
[2018-10-05] MEDS: SALINE 0.65% NAS SOLN 1 SPRAY BTL PRN ×2 (09:00→13:27)
[2018-10-05] MEDS: PANTOPRAZOLE SOD 40 MG TABEC PO SCH (09:00)
[2018-10-05] MEDS: DOCUSATE SODIUM LIQD 100 MG/10 ML UDC PO SCH ×2 (09:01→16:53)
--- NOTE | 2018-10-05 09:04 | Diagnostic Imaging Report ---
Procedure: Tunneled hemodialysis catheter placement. Medications: 1% lidocaine. Patient also received 1 g of Ancef prior to the procedure. The patient's vital signs, including pulse oximetry, were continuously monitored by the interventional radiology nurse. Fluoroscopy time: 0.6 minutes. Dose area product: 207.5 cGycm2 Contrast used: None Estimated blood loss: Less than 5 cc Complications: No immediate. Procedure in detail: Informed consent for the procedure was obtained from the patient after discussion of risks and benefits. The right neck and upper chest was prepped and draped in the standard sterile fashion after the patient was placed in the supine position on the fluoroscopic table. 1% lidocaine was administered into the skin and subcutaneous tissues of the right lower neck for local anesthesia. A 0.035 inch Amplatz superstiff wire was then advanced through the central lumen of the right IJ temporary dialysis catheter. Attention was then turned to the right upper chest. A suitable catheter exit site was determined, approximately 3 fingerbreadths inferior to the clavicle. The skin was marked. 1% lidocaine was used to anesthetize a subcutaneous tract extending from the planned catheter exit site to the venotomy at the right lower neck. A stab incision was made on the right upper chest. Subsequently, the catheter was tunneled from the exit site of the right upper chest to the venotomy at the right lower neck. The retention cuff of the catheter was advanced well into the subcutaneous tunnel. A 16.5-Wallisian peel-away sheath was advanced over the wire under fluoroscopic guidance. The wire and inner dilator of the sheath were removed and the catheter was advanced through the peel-away sheath, which was then broken and removed. The catheter tips was positioned in the right atrium. Each catheter lumen showed good bidirectional flow. Each lumen was then packed with 2000 units of heparin. The catheter was secured at the exit site on the right upper chest with monofilament nylon suture. A purse string suture utilizing 4-0 Vicryl at the entry site into the skin was placed around the catheter. The venotomy at the right lower neck was closed with interrupted 4-0 Vicryl sutures. A sterile dressing was applied. The patient tolerated the procedure well without immediate complication. Impression: 1. Successful placement of a Bard split tip tunneled dual-lumen hemodialysis catheter (16-Wallisian, 23-cm tip-cuff length) by a right internal jugular approach. 2. The line is OK for immediate use. Signed by: Dr. Rohit Ndiaye DO on 10/02/2018 4:24 PM
--- NOTE | 2018-10-05 15:25 | NUR ---
PER SW DURING INTERDISCIPLINARY ROUNDS, PATIENT TO HAVE 2 DIALYSIS DAY REPORTS SENT TO [facility] PRIOR TO DISCHARGE. PATIENT ANTICIPATED DISCHARGE DATE 10/06 OR 10/07 DEPENDING WHEN DIALYSIS IS COMPLETED. PATIENT NOTIFIED.
--- NOTE | 2018-10-05 18:06 | NUR ---
Nutrition Screen Note RD Recommendation for Physician: - Continue renal/ ADA diet as ordered - Order Nepro x1 daily per pt request (Notified ILIA Salgado) Plan of Care: RD following, monitoring for tolerance and adequacy Nutrition reason for involvement: Follow up Primary Diagnose(s): 1. Nonobstructive coronary artery disease. 2. Aljll-kr-quzvgbj systolic and diastolic heart failure. 3. Axsfb-oy-mfrjpqg kidney disease, now declared end-stage renal disease. PMH: DM, CHF, HTN, CKD (per pt) Ht: 68in Wt: 302.44lb 09/21, 300.06lb 10/05 BMI: 46kg/m2 IBW: 154lb RD Assessment: 10/05 Chart reviewed. Labs and meds reviewed. Pt is new ESRD on HD. Visited pt in the room. Pt reports appetite not so good despite RN recorded 75% PO intake. No order for Nepro as RD requested during last visit. Pt was getting upset about not getting salt packet w his meals because apparently doctor (?) told him that he can have 1 salt pkt with every meal. Explained the renal/ADA diet in the hospital. Pt is not allowed to have salt packet with renal diet ordered by MD, unless specified. Pt states I am not going to eat if you dont send me salt. Communicated situation with RN. RD rec Nepro if he has poor appetite. HD is scheduled for tomorrow. RD unable to provide diet education as pt was getting upset. Will continue to monitor and follow. (09/28) Chart reviewed. Labs and meds reviewed. 73 yo M, who is admitted for CHF. Visited pt in the room. Pt was on HD. Pt reports appetite not so good despite RN recorded 75-100% PO intake for the last 2 days. No GI complains noted. LBM 09/28. Pt denies any chewing or swallowing difficulty. No recent weight loss reported. Will continue to monitor and follow. (09/21) Chart reviewed. Labs and meds reviewed. 73yo M, who is admitted for CHF. Visited pt in the room. Pt is currently on IV lasix. 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 Pt is currently NPO but eager to eat. No recent weight loss reported. No GI complains noted. LBM 09/19. Pt denies any chewing or swallowing difficulty. Will continue to monitor and follow. Current Diet: renal diabetic diet Malnutrition Evaluation (09/21/18) The patient does not meet criteria for a specified degree of malnutrition at this time. Will re-evaluate at follow-up as appropriate. Diet Education Needs Assessment: Diet education is indicated, pt is not appropriate at this time. Nutrition Care Level: low Signed: Alyssa Lucio, MS, RD, LD
--- NOTE | 2018-10-05 19:46 | NUR ---
Spoke with Ailin, with Dr. Gonzales answering service regarding routine consult at this time.
[2018-10-05] MEDS: ATORVASTATIN 40 MG TAB PO SCH (21:40)
--- NOTE | 2018-10-05 23:35 | Progress Note ---
DATE: October 05, 2018 CARDIOLOGY PROGRESS NOTE SUBJECTIVE: Patient denies chest pain or shortness of breath. OBJECTIVE VITAL SIGNS: Temperature 95.9 degrees, pulse 56, respiratory rate 20, blood pressure 143/66, and oxygen saturation 100% on 3 L nasal cannula. GENERAL: Obese man, in no acute distress, awake and alert. LUNGS: Clear to auscultation bilaterally other than decreased breath sounds at the bases. CARDIOVASCULAR: Normal rate, regular rhythm. No murmur. Normal S1 and S2. ABDOMEN: Soft, nontender. EXTREMITIES: Edematous. CARDIAC MEDICATIONS 1. Metoprolol tartrate 25 mg p.o. b.i.d. 2. Atorvastatin 80 mg p.o. nightly. LABS: None today. IMPRESSIONS 1. Nonobstructive coronary artery disease. 2. Ncsii-yn-gsytuya systolic and diastolic heart failure. 3. Ascwi-kk-ddarshu kidney disease, now declared end-stage renal disease. 4. Diabetes mellitus. 5. Hypertension. 6. Obesity. RECOMMENDATIONS: Continue current cardiac medications. Volume management per nephrology given patient's end-stage renal disease, on hemodialysis. Will request further ultrafiltration. No further cardiac evaluation is indicated at this time. Patient is awaiting outpatient dialysis chair placement. Thank you for this consult. We will continue to follow. Job#: [id number] CF
[2018-10-06] VITALS: BP 139/71
[2018-10-06] MEDS: HYDROCODONE/APAP 10MG-325MG TAB PO PRN ×5 (03:33→22:10)
[2018-10-06 04:00] VITALS: BP 150/70
[2018-10-06 05:49] LABS: BASOPHILS # (AUTO) 0.1 (0.0-0.1); BASOPHILS % 0.5 % (0.0-1.0); EOSINOPHILS # (AUTO) 0.2 (0.0-0.4); EOSINOPHILS % 1.4 % (0.0-6.0); HEMATOCRIT 30.1 % (38.2-49.6); HEMOGLOBIN 9.3 g/dL (14.0-18.0); LYMPHOCYTES # (AUTO) 0.8 (1.0-3.2); LYMPHOCYTES % 7.1 % (18.0-39.1); MEAN CORPUSCULAR HEMOGLOBIN 30.7 pg (28-32); MEAN CORPUSCULAR HGB CONC 30.9 g/dL (31-35); MEAN CORPUSCULAR VOLUME 99.3 fL (81-99); MONOCYTES # (AUTO) 0.9 (0.2-0.8); MONOCYTES % 8.5 % (4.4-11.3); NEUTROPHILS # (AUTO) 8.9 (2.1-6.9); NEUTROPHILS % 81.3 % (38.7-80.0); PLATELET COUNT 152 x10e3/uL (140-360); RED BLOOD COUNT 3.03 x10e6/uL (4.3-5.7); RED CELL DISTRIBUTION WIDTH 14.3 % (11.7-14.4)
[2018-10-06 06:16] LABS: ANION GAP 18.1 mmol/L (8-16); CALCIUM 7.1 mg/dL (8.4-10.2); CREATININE, SERUM 8.36 mg/dL (0.72-1.25); POTASSIUM 5.1 mmol/L (3.5-5.1)
[2018-10-06] MEDS: SUCRALFATE 1 GM/10 ML SUSP PO SCH ×2 (07:30→16:29)
[2018-10-06] MEDS: SODIUM CHLORIDE 0.9% 1000ML 2,000 ML IV PRN (07:56)
--- NOTE | 2018-10-06 08:12 | NUR ---
SPOKE TO MD AGUILAR ABOUT PROCEDURE OF CAUTERY, IF CONSENT NEEDED TO BE DONE . STATES NO. ASKED ABOUT HD SCHEDULED FOR TODAY AND IF IT NEEDED TO BE HELD UNTIL PROCEDURE COMPLETEL. STATES THERE IS NO NEED. HD NOW STARTED, HOLDING AM PO MEDS UNTIL HD IS COMPLETE
[2018-10-06 08:36] VITALS: BP 159/74
[2018-10-06] MEDS: DOCUSATE SODIUM LIQD 100 MG/10 ML UDC PO SCH ×2 (09:00→17:08)
[2018-10-06] MEDS: SENNOSIDES 8.6 MG TAB PO SCH ×2 (09:00→17:10)
[2018-10-06] MEDS: BACITRACIN ZINC 15 GM OINT TOP SCH ×3 (09:00→22:00)
[2018-10-06] MEDS: METOPROLOL TARTRATE 25 MG TAB PO SCH ×2 (09:00→17:09)
--- NOTE | 2018-10-06 11:36 | Progress Note ---
DATE: October 06, 2018 CARDIOLOGY PROGRESS NOTE SUBJECTIVE: Patient denies chest pain or shortness of breath. He was seen during hemodialysis. OBJECTIVE VITAL SIGNS: Temperature 97.1 degrees, pulse 64, respiratory rate 20, blood pressure 159/74, and oxygen saturation 99% on 3 L nasal cannula. GENERAL: Obese man in no acute distress, awake and alert. LUNGS: Clear to auscultation bilaterally other than decreased breath sounds at the bases. CARDIOVASCULAR: Normal rate, regular rhythm. No murmur. Normal S1 and S2. ABDOMEN: Soft, nontender. EXTREMITIES: Edematous. CARDIAC MEDICATIONS 1. Atorvastatin 80 mg p.o. nightly. 2. Metoprolol tartrate 25 mg p.o. b.i.d. LABS: WBC 10.99, hemoglobin 9.3, hematocrit 30.1, platelets 152. Sodium 129, potassium 5.1, chloride 94, CO2 22, BUN 50, creatinine 8.36. IMPRESSIONS 1. Nonobstructive coronary artery disease. 2. Quugr-hy-llpccpg systolic and diastolic heart failure. 3. Zclvk-dg-gejzeux kidney disease, now declared end-stage renal disease on hemodialysis. 4. Diabetes mellitus. 5. Hypertension. 6. Obesity. RECOMMENDATIONS: Continue current cardiac medications. Volume management per nephrology given the patient's end-stage renal disease. Check BMP. Patient likely needs further ultrafiltration. No further cardiac evaluation is indicated at this time. Thank you for this consult. We will continue to follow. Job#: [id number]
[2018-10-06 12:43] VITALS: BP 164/68
[2018-10-06] MEDS: OXYMETAZOLINE HCL 0.05% NAS 1 SPRAY BTL SCH ×2 (13:13→22:00)
[2018-10-06] MEDS: PANTOPRAZOLE SOD 40 MG TABEC PO SCH (13:13)
[2018-10-06 16:51] VITALS: BP 124/56
[2018-10-06] MEDS ORDERED: SERTRALINE HCL 50 MG TAB PO ONE (17:15)
[2018-10-06 20:00] VITALS: BP 111/56
[2018-10-06] MEDS: ATORVASTATIN 40 MG TAB PO SCH (22:00)
[2018-10-07] VITALS (7 sets, daily range): BP systolic 106–164; BP diastolic 53–74
--- NOTE | 2018-10-07 00:08 | Discharge Summary ---
See also ER notes and history and physical, consultations, electronic medical record. Patient was hospitalized through the emergency room with shortness of breath. He required transient support with BiPAP. Impression included fluid overload associated with end-stage renal disease. The patient had not been on dialysis prior to hospitalization. He did require dialysis and plans continued routine hemodialysis post discharge. Right subclavian tunneled line was placed while here. See notes. Patient's course was complicated by his multiple severe ongoing chronic medical illnesses. The patient has chronic extreme obesity with secondary obstructive sleep apnea and chronic edema. He has chronic pain associated with degenerative joint disease and peripheral neuropathy and has chronically required opiate analgesics which were continued here. History included prior heavy tobacco use, not recently. Patient declined CPAP when he was diagnosed at the [facility]. History includes LVH. Patient has been seeing fuel distribution system operator in renal clinic for years. See also prior stays here. History includes type 2 diabetes mellitus and blood sugars were monitored and treated as needed here. Patient also requested psychiatric consultation and initiation of antidepressants which were ordered while he was here. See also serial orders per EMR. Patient had a very lengthy stay. Thirteen days prior to discharge, the patient's orders included authorization for move to long-term hospital. The patient's insurance company refused long-term hospital. Five days prior to discharge, correction facility transfer was authorized. This was delayed because of delay in obtaining a dialysis "chair". History includes recurrent UTI and recurrent bacteriuria. Patient has a chronic Ayala. He states the Ayala is used primarily because of incontinence and the need to keep skin clear and avoid skin wounds associated with wetness and pressure. Patient was advised that the Ayala would make sterilization of the urine impossible and he declined the recommendations regarding the removal of the Ayala repeatedly. Physical therapy was ordered. The patient declined. Ultimately, he did consent to physical therapy later. My request is this be continued in his correction home. The patient was given empiric antibiotics by Dr. Rodarte, ER physician. The patient was initially admitted to Dr. Oakley, but the patient requested his primary care physician attend him while here. The patient had elevation of troponins. He was seen by deck mechanic whom the ER physician, Dr. Rodarte, consulted. His deck mechanic performed a heart cath after the patient had been declared by his fuel distribution system operator to require chronic hemodialysis. The heart cath revealed 30% to 50% LAD and circumflex lesions as well as distal right coronary 90% lesion. on air personality recommended medical care. History included hyperlipidemia and statins were continued and dose increased. Venous Doppler scans revealed no evidence of DVT. Course was complicated by severe constipation. Analgesics were reduced and the patient ultimately responded to medical treatment with enemas, stool softeners. He was not impacted by serial rectal examinations. See also serial laboratory studies per EMR. Admission white count 10.52, hemoglobin 10.9, indices normal. Platelet count 159,000. PT 0.9 INR. Prothrombin time 13.1. PTT 32.9, normal. Pyuria on UA which improved. Bacteriuria, initial culture was clear post pulse of antibiotics. Negative viral hepatitis antigens and antibodies. Chemistries were monitored. Blood sugars were monitored and treated as needed. Admission natriuretic peptide 3063. Hemoglobin A1c was 6.1. Admission BUN 60, creatinine 5.59 with potassium 4.3; CO2 of 13, low. LDL 133 prior to increasing statins. PSA is 1.4, normal. Troponin 0.272 on September 22, 2018, with CPK 304, CK-MB 10. Peak troponin 3.2 on September 22, 2018, to 2.5 on September 23, 2018. Blood cultures 3 of 4 were negative. One revealed micrococcus. Probable contaminant. Renal ultrasound: Normal left kidney. Limited views of right kidney. ER chest x-ray: Cardiomegaly, central vascular congestion, small right effusion. Arterial leg Doppler scan requested. Dictated report pending. The patient was kindly followed by his required consultants in cardiology. Course was complicated by recurrent pharyngeal bleeding and the patient required examination and cauterization by architectural sales consultant, Dr. Daniels. He was also prescribed Mccleary nasal spray 2 puffs each side of the nose q.4 hours while awake. See notes regarding fiberoptic rhinoscopy with cautery. The patient was also followed by his appeals officer, Dr. Mancini, while here. See also discharge med reconciliation list. The patient will continue dialysis and medical therapy a his correction facility as well as O2 and hemodialysis. He declines BiPAP for MAGALI. The patient declined caloric reduction. Prognosis is guarded. FINAL IMPRESSIONS 1. Respiratory failure associated with fluid overload and end-stage renal disease. 2. Coronary artery disease with non-ST elevation myocardial infarction per serial rise in enzymes. 3. Type 2 diabetes mellitus. 4. Hyperlipoproteinemia. 5. Degenerative joint disease. 6. Chronic pain. 7. Chronic opiates. 8. Chronic restrictive ventilatory deficit. 9. Obstructive sleep apnea. 10. Chronic obstructive pulmonary disease. 11. Hypertension. 12. Acidosis on admission, improved. 13. Morbid obesity. 14. Constipation, resolved. 15. Intermittent significant nasopharyngeal bleeding, cauterized and improved. 16. Prostatic hypertrophy. 17. Chronic indwelling Ayala with chronic bacteriuria and intermittent urinary tract infection. Treated this admission. ASHWIN HADLEY MD Job#: [id number]
[2018-10-07] MEDS: HYDROCODONE/APAP 10MG-325MG TAB PO PRN ×4 (03:52→19:00)
[2018-10-07] MEDS: PANTOPRAZOLE SOD 40 MG TABEC PO SCH (07:30)
[2018-10-07] MEDS: SUCRALFATE 1 GM/10 ML SUSP PO SCH ×2 (07:30→16:30)
[2018-10-07] MEDS: DOCUSATE SODIUM LIQD 100 MG/10 ML UDC PO SCH (09:00)
[2018-10-07] MEDS: BACITRACIN ZINC 15 GM OINT TOP SCH ×2 (09:00→15:00)
[2018-10-07] MEDS: OXYMETAZOLINE HCL 0.05% NAS 1 SPRAY BTL SCH (09:00)
[2018-10-07] MEDS ORDERED: SERTRALINE HCL 50 MG TAB PO SCH ×2 (09:00)
[2018-10-07] MEDS: METOPROLOL TARTRATE 25 MG TAB PO SCH (09:00)
[2018-10-07] MEDS: SENNOSIDES 8.6 MG TAB PO SCH (09:00)
--- NOTE | 2018-10-07 09:43 | NUR ---
MD ROMERO INTO SEE PT, DISCUSSED POCMD DUARTE FOR PT TO TRANSFER TO SNF
--- NOTE | 2018-10-07 10:03 | NUR ---
MD HADLEY INTO SEE PT, DISCUSSED POC, OKAYED PT TO DISCHARGE TO [facility]
--- NOTE | 2018-10-07 11:35 | NUR ---
SPOKE WITH PT DAUGHTER YASMIN, VOICES CONCERN OVER PT TRANSFERRING TO [facility], MADE AWARE THAT MD HADLEY AND MD ROMERO HAVE MEDICALLY CLEARED PT FOR DISCHARGE
--- NOTE | 2018-10-07 11:42 | NUR ---
SPOKE WITH PT, MADE AWARE THAT ROOM IS NOW AVAILABLE AT [facility], PT STATES HE "IS NOT GOING TODAY",
--- NOTE | 2018-10-07 12:05 | NUR ---
2ND CALL FROM DAUGHTER, STATES PT IS NOT TELLING DR HOW HE IS FEELING, NOTIFIED DAUGHTER THAT NURSE HAS PLACED CALL TO MD HADLEY TO MAKE AWARE OF PT CONCERNS, AWAITING CALL BACK
--- NOTE | 2018-10-07 12:11 | NUR ---
CM SPOKE TO PATIENT AT BEDSIDE REGARDING IMM LETTER. IMM GIVEN WITH EXPLANATION. SIGNED COPY PLACED IN CHART; COPY OF SIGNED COPY GIVEN TO PATIENT. PATIENT WITH NO FURTHER QUESTIONS AT THIS TIME. PATIENT GIVEN CM INFORMATION FOR ANY QUESTIONS OR CONCERNS.
--- NOTE | 2018-10-07 12:15 | NUR ---
SPOKE WITH MD HADLEY, MADE AWARE OF PT CONCERNS THAT HE "CANNOT LEAVE BECAUSE HE CANNOT BREATHE WELL WHEN MOVING AND IS WORN OUT", MADE AWARE OF CURRENT VITAL SIGNS AND THAT DR ROMERO HAS OKAYED PT TO BE DISCHARGED TO [facility] FROM HIS STANDPOINT, ORDERS NOTED TO CONTINUE WITH DISCHARGE
--- NOTE | 2018-10-07 12:35 | NUR ---
MD ARRIOLA INTO SEE PT, DISCUSSED POC, PT STATES HE IS NOT "DISCHARGING BECAUSE HE DOES NOT FEEL WELL", MD ARRIOLA STATES HE WILL LEAVE IT UP TO DR HADLEY, BUT FROM CARDIAC STANDPOINT, "OKAY TO DISCHARGE"
--- NOTE | 2018-10-07 15:44 | NUR ---
CM SPOKE TO PATIENT AT BEDSIDE REGARDING DISCHARGE APPEAL PROCESS. PATIENT INFORMED THAT IF HE DOES NOT FEEL SAFE WITH HIS DISCHARGE, HE HAS THE RIGHT TO APPEAL HIS DISCHARGE. PATIENT GIVEN PHONE NUMBER TO CALL TO APPEAL DISCHARGE. PATIENT ALSO INFORMED THAT IF HE WINS THE APPEAL, THE INSURANCE WILL PAY FOR HIS STAY; HOWEVER, IF THE APPEAL IS DENIED, HE MAY BE RESPONSIBLE FOR HIS STAY FOR ANY DAYS ACQUIRED AFTER THE DISCHARGE ORDER WAS WRITTEN. PATIENT BEGINS TO YELL AND STATES "I'M NOT PAYING FOR ANYTHING AND I AM NOT GOING ANYWHERE! YOU CAN'T TELL ME WHAT I CAN AND CAN'T PAY FOR, I KNOW THE LAW!" CM STATES THAT THE PATIENT, HE HAS A RIGHT TO APPEAL BY USING THE NUMBER ON THE IMM LETTER. CM INFORMS PATIENT THAT I AM ONLY RECITING WHAT MEDICARE REQUIRES ME TO BY LAW SO HE KNOWS WHAT HIS RIGHTS AND RESPONSIBILITIES ARE A PATIENT. PATIENT STATES " I'M NOT GOING TO SAY YOU TOLD ME ANYTHING." CM BROUGHT MY MALINI, ANOTHER AUTOMOBILE CLUB MEMBERSHIP SALES AGENT, INTO THE ROOM AND REITERATES ABOVE INFORMATION. PATIENT STATES "YOU TOLD ME A MILLION TIMES AND I SAID I UNDERSTAND BUT I DON'T WANT TO LISTEN TO YOUR VOICE ANYMORE. YOU'RE HARASSING ME, COMING IN HERE AND TELLING ME THIS OVER AND OVER AGAIN." CM STATES THAT SINCE HE UNDERSTANDS AND VERBALLY AGREED, IN FRONT OF A WITNESS, TO HEARING HIS RIGHTS A PATIENT TO APPEAL HIS DISCHARGE WELL ANY POTENTIAL FINANCIAL RESPONSIBILITY THAT MAY OCCUR, WE ARE ABLE TO LEAVE THE ROOM. DIRECTOR OF CASE MANAGEMENT, SEDRICK HEBERT, NOTIFIED OF SITUATION. Addendum: 10/07/18 at 1639 by Haley Yu CM PATIENT BALLED UP AND THREW IMM LETTER AT . STATES THAT IT IS INAPPROPRIATE TO THROW THINGS AT STAFF IN THIS FACILITY. PATIENT STATES HE WILL NOT LEAVE AND, "YOU CAN'T MAKE ME".
[2018-10-07] MEDS ORDERED: LORAZEPAM 0.5 MG TAB PO ONE (16:00)
[2018-10-07] MEDS ORDERED: LORAZEPAM 0.5 MG TAB PO PRN (16:00)
[2018-10-07] MEDS ORDERED: TRAZODONE HCL 50 MG TAB PO PRN (16:15)
[2018-10-07] MEDS ORDERED: BUPROPION HCL 75 MG TAB PO SCH (17:00)
--- NOTE | 2018-10-07 17:51 | Consultation ---
DATE OF CONSULTATION: October 07, 2018 PSYCHIATRIC CONSULTATION REASON FOR CONSULTATION: To evaluate patient's mood. HISTORY OF PRESENTING ILLNESS: The patient is 73-year-old male, obese, admitted to the hospital for CHF and hypertensive emergency. Psychiatric consultation is called to evaluate patient's mood. As per medical record, patient is on BiPAP, admitted to the medical floor from the ICU. He has medical history of COPD, hypertension, kidney disease. Upon evaluation today, patient is found to be lying on the bed. He is alert, awake, and oriented to situation. Patient admits to feeling depressed and does not believe that life is worth living due to his medical issues. He denies any suicidal ideation or hallucination. He admits to feeling very anxious and complaining of poor sleep and poor appetite. He denies any hallucination. No delusion or paranoia elicited. He is calm and not agitated and he wants something quick for his depression and anxiety. He also admits to feeling hopeless and helpless. PAST PSYCHIATRIC HISTORY: Patient denies any past psychiatric history, although he admits to taking something for his depression that was given by a primary care doctor many years ago. He denies suicidal attempt. He denies any alcohol or drug use. FAMILY HISTORY: Patient reports his brother committed suicide. SOCIAL HISTORY: Patient lives alone. MENTAL STATUS EXAMINATION: The patient is a morbidly obese male. He is alert, awake, and oriented to situation. His mood is depressed and anxious with appropriate congruent affect. Psychomotor state is passive and relaxed. He denies any suicidal or homicidal ideation. He denies any hallucination. Thought process is concrete. No delusion elicited. Insight and judgment are fair. Memory appears to be grossly intact. CURRENT MEDICATIONS 1. Bacitracin. 2. Alma. 3. 50 mg p.o. daily. 4. Afrin. 5. Protonix. 6. Lipitor. 7. Sodium chloride. 8. Losartan. 9. Hydralazine. 10. Simethicone. 11. . 12. Nitroglycerin. 13. Sucralfate. 14. Sennosides. 15. Metoprolol. 16. Docusate. 17. Heparin. 18. Albumin. CURRENT LABS: WBC 10.99, RBC 3.02, hemoglobin 9.3, hematocrit 30.1, platelets 152. Chemistry: Sodium 129, potassium 5.1, chloride 94, CO2 22, BUN 50, creatinine 8.36. ASSESSMENTS 1. Major depressive disorder, recurrent, moderate to severe. 2. Anxiety disorder. PLAN: 1. To continue with 50 mg p.o. daily. 2. Add Wellbutrin 75 mg p.o. b.i.d. 3. Add Ativan 0.5 mg p.o. q.6 hours p.r.n. and 1 pill now. 4. Add trazodone 50 mg p.o. at bedtime p.r.n. for insomnia. 5. Monitor for mood. 6. Supportive therapy. Thank you for this consultation. Dictated by ANNETTE Aguilera Job#: [id number] TA
--- NOTE | 2018-10-07 18:23 | NUR ---
NURSE TRADE SHOW COORDINATOR AND CASE MANAGEMENT WENT INTO ROOM AND DISCUSSED WITH PT REGARDING HIM NOT WANTING TO DISCHARGE FROM [facility], AFTER DISCUSSING OPTIONS, PT CHANGED MIND AND STATES HE IS NOW DISCHARGING, TRADE SHOW COORDINATOR COMMUNICATED WITH PT'S DAUGHTER VIA TELEPHONE REGARDING HIM NOW DISCHARGING , REPORT TO [place], UNIT TELEPHONED AMBULANCE, AWAITING ARRIVAL FOR TRANSFER
--- NOTE | 2018-10-07 19:27 | NUR ---
WALKING ROUNDS PERFORMED, RECEIVED PT LAYING SEMI FOWLERS IN BED, AAOX3, RR EVEN AND NON-LABORED, O2 BY NC AT 4L. PT REPORTS 10/10 PAIN TO BILATERAL LOWER EXTREMITIES. LEFT PT LAYING SEMI FOWLERS IN BED, BED IN LOW LOCKED POSITION, SIDE RAILS UPX2, CALL LIGHT AND PHONE WITHIN REACH.
--- NOTE | 2018-10-07 19:41 | NUR ---
PT DISCHARGED BY STRETCHER/EMS TO [facility]. PT IN STABLE CONDITION. NO S/SX OF DISTRESS NOTED.
--- NOTE | 2018-10-07 19:53 | NUR ---
SPOKE WITH YASMIN CONCERNING PT DISCHARGE TO [facility].
[2018-10-07] MEDS ORDERED: SENNOSIDES 8.6 MG TAB PO SCH (21:00)
[2018-10-07] MEDS ORDERED: DOCUSATE SODIUM LIQD 100 MG/10 ML UDC PO SCH (21:00)
[2018-10-07] MEDS ORDERED: METOPROLOL TARTRATE 25 MG TAB PO SCH (21:00)
--- NOTE | 2018-10-07 22:18 | Progress Note ---
DATE: October 07, 2018 CARDIOLOGY PROGRESS NOTE SUBJECTIVE: The patient has no active cardiac complaints. He states that he is tired and does not want to be discharged. Does not feel that he is medically adequate for discharge to a rehab. He says that he is unable to participate with rehab due to feeling tired. OBJECTIVE VITAL SIGNS: Temperature is 96.5, heart rate is 65, respirations are 18, blood pressure is 137/66, oxygen saturation is 100% on 3 liters nasal cannula. GENERAL: He is a chronically ill-appearing elderly man, in no apparent distress, lying in bed comfortably. CARDIOVASCULAR: Regular rate and rhythm. LUNGS: Diminished breath sounds on bilateral bases. No rales. ABDOMEN: Soft, obese, nontender. EXTREMITIES: Edema. CARDIOVASCULAR MEDICATIONS: Reviewed. LABORATORY DATA: Reviewed. IMPRESSION 1. Nonobstructive coronary artery disease. 2. Pwstg-hw-heezacp systolic and diastolic heart failure. 3. Jreur-ij-gsaiuct kidney disease, now declared end-stage renal disease, on hemodialysis. 4. Diabetes mellitus. 5. Hypertension. 6. Obesity. 7. Depression. RECOMMENDATIONS: Patient is stable for discharge from a cardiovascular standpoint; however, patient has declined an appealed discharge. Psychiatric has been consulted. Check current labs and continue current cardiovascular medications. Job#: [id number] SHANNON
== END 2018-10-07 19:43 | DRG 280 ==
LOC: ER 01:17 → ERHOLD 01:41 → ICU 02:56 → MED/SURG 09-27 22:07
PROVIDERS: ADMIT Internal Medicine; ATTEND Internal Medicine
PROC: 5A09357 Assistance with Respiratory Ventilation, Less than 24 Consecutive Hours, Continuous Positive Airway Pressure (ICD-10-PCS; principal; 2018-09-21)
PROC: 02HV33Z Insertion of Infusion Device into Superior Vena Cava, Percutaneous Approach (ICD-10-PCS; 2018-09-21)
PROC: 5A1D70Z Performance of Urinary Filtration, Intermittent, Less than 6 Hours Per Day (ICD-10-PCS; 2018-09-21)
PROC: B2111ZZ Fluoroscopy of Multiple Coronary Arteries using Low Osmolar Contrast (ICD-10-PCS; 2018-09-24)
PROC: B240ZZ3 Ultrasonography of Single Coronary Artery, Intravascular (ICD-10-PCS; 2018-09-24)
PROC: 0JH63XZ Insertion of Tunneled Vascular Access Device into Chest Subcutaneous Tissue and Fascia, Percutaneous Approach (ICD-10-PCS; 2018-10-02)
PROC: 02H633Z Insertion of Infusion Device into Right Atrium, Percutaneous Approach (ICD-10-PCS; 2018-10-02)
PROC: 093K8ZZ Control Bleeding in Nasal Mucosa and Soft Tissue, Via Natural or Artificial Opening Endoscopic (ICD-10-PCS; 2018-10-06)
DX: I16.1 Hypertensive emergency (principal); J96.21 Acute and chronic respiratory failure with hypoxia; I21.4 Non-ST elevation (NSTEMI) myocardial infarction; N18.6 End stage renal disease; I50.43 Acute on chronic combined systolic (congestive) and diastolic (congestive) heart failure; T83.511A Infection and inflammatory reaction due to indwelling urethral catheter, initial encounter; N17.9 Acute kidney failure, unspecified; E87.2 Acidosis; Z68.42 Body mass index [BMI] 45.0-49.9, adult; F33.1 Major depressive disorder, recurrent, moderate; L03.116 Cellulitis of left lower limb; L03.115 Cellulitis of right lower limb; I13.2 Hypertensive heart and chronic kidney disease with heart failure and with stage 5 chronic kidney disease, or end stage renal disease; Z87.891 Personal history of nicotine dependence; I25.10 Atherosclerotic heart disease of native coronary artery without angina pectoris; E11.42 Type 2 diabetes mellitus with diabetic polyneuropathy; E11.22 Type 2 diabetes mellitus with diabetic chronic kidney disease; E66.01 Morbid (severe) obesity due to excess calories; E78.5 Hyperlipidemia, unspecified; G47.33 Obstructive sleep apnea (adult) (pediatric); B35.6 Tinea cruris; R04.0 Epistaxis; T45.515A Adverse effect of anticoagulants, initial encounter; Y92.230 Patient room in hospital as the place of occurrence of the external cause; J34.2 Deviated nasal septum; M19.90 Unspecified osteoarthritis, unspecified site; G89.4 Chronic pain syndrome; J44.9 Chronic obstructive pulmonary disease, unspecified; K21.9 Gastro-esophageal reflux disease without esophagitis; N40.0 Benign prostatic hyperplasia without lower urinary tract symptoms; Y84.6 Urinary catheterization as the cause of abnormal reaction of the patient, or of later complication, without mention of misadventure at the time of the procedure; R53.81 Other malaise; K59.00 Constipation, unspecified; E83.51 Hypocalcemia; I87.8 Other specified disorders of veins; Z99.3 Dependence on wheelchair; Z79.84 Long term (current) use of oral hypoglycemic drugs; Z79.82 Long term (current) use of aspirin; Z88.5 Allergy status to narcotic agent
CPT/HCPCS: 36415; 36556; 36558; 36600; 71045; 74470; 76770; 76937; 80048; 80053; 80061; 81001; 82550; 82553; 82805; 82947; 82948; 83036; 83880; 84132; 84443; 84484; 85007; 85025; 85027; 85610; 85730; 86705; 86706; 87040; 87071; 87086; 87205; 87340; 87400; 90962; 92978; 93005; 93306; 93454; 93925; 93970; 94660; 96365; 97139; 99284; C1769; J0360; J0690; J1644; J1940; J2001; J2250; J2270; J2405; J2543; J7030; J7040; J7050; J7070; Q9967

== ENCOUNTER 2018-11-15 17:47 | Observation (INO) | payer MEDICARE, OTHER ==
[~2018-11-15] VITALS: Ht 172.7 cm; Wt 122.0 kg
[~2018-11-15 17:47] MED LIST changes: +LANTUS 3ML100 UNITS/ SC
[2018-11-15 18:44] LABS: BASOPHILS # (AUTO) 0.1 (0.0-0.1); BASOPHILS % 0.5 % (0.0-1.0); EOSINOPHILS # (AUTO) 0.3 (0.0-0.4); EOSINOPHILS % 2.2 % (0.0-6.0); HEMATOCRIT 35.8 % (38.2-49.6); LYMPHOCYTES # (AUTO) 0.9 (1.0-3.2); LYMPHOCYTES % 7.1 % (18.0-39.1); MEAN CORPUSCULAR HEMOGLOBIN 30.6 pg (28-32); MEAN CORPUSCULAR HGB CONC 30.7 g/dL (31-35); MEAN CORPUSCULAR VOLUME 99.4 fL (81-99); MONOCYTES # (AUTO) 0.7 (0.2-0.8); MONOCYTES % 5.3 % (4.4-11.3); NEUTROPHILS # (AUTO) 10.8 (2.1-6.9); NEUTROPHILS % 84.3 % (38.7-80.0); PLATELET COUNT 171 x10e3/uL (140-360); RED CELL DISTRIBUTION WIDTH 18.1 % (11.7-14.4)
--- NOTE | 2018-11-15 19:04 | Diagnostic Imaging Report ---
EXAMINATION: CHEST SINGLE (PORTABLE) INDICATION: SOB COMPARISON: Chest x-ray FINDINGS: AP view TUBES and LINES: Right IJ tunneled dialysis catheter tip overlies the right atrium. LUNGS: Lungs are well inflated. Central pulmonary venous congestion. There is no evidence of pneumonia or pulmonary edema. PLEURA: Small right pleural effusion. No pneumothorax. HEART AND MEDIASTINUM: Cardiac size is mildly enlarged. BONES AND SOFT TISSUES: No acute osseous lesion. Soft tissues are unremarkable. UPPER ABDOMEN: No free air under the diaphragm. IMPRESSION: Central pulmonary venous congestion with right pleural effusion. Signed by: DR. Pacheco Wetzel MD on 11/15/2018 7:00 PM
[2018-11-15 19:55] LABS: INR 0.97; PARTIAL THROMBOPLASTIN TIME 34.4 seconds (23.8-35.5); PROTHROMBIN TIME 13.8 seconds (11.9-14.5)
[2018-11-15 20:05] LABS: ALBUMIN 2.6 g/dL (3.5-5.0); ALBUMIN/GLOBULIN RATIO 0.6 (0.8-2.0); ANION GAP 13.3 mmol/L (8-16); CALCIUM 8.6 mg/dL (8.4-10.2); CREATININE, SERUM 3.97 mg/dL (0.72-1.25); MAGNESIUM 1.9 MG/DL (1.3-2.1); POTASSIUM 3.3 mmol/L (3.5-5.1)
[2018-11-15 20:25] LABS: CREATINE KINASE MB 2.4 ng/mL (0-5.0); THYROID STIMULATING HORMONE 0.752 uIU/mL (0.350-4.940)
--- NOTE | 2018-11-15 20:29 | Diagnostic Imaging Report ---
Exam: Head CT without contrast History: Shortness of breath, double vision, blurry vision Comparison studies: None Technique: Axial images were obtained from the skull base to the vertex. Coronal and sagittal images reconstructed from the axial data. Dose modulation, iterative reconstruction, and/or weight based adjustment of the mA/kV was utilized to reduce the radiation dose to as low as reasonably achievable. Radiation dose: Total DLP: 921 mGy*cm. Estimated effective dose: DLP x 0.015 Intravenous contrast: None Findings: Scalp: No abnormalities. Bones: No fractures, blastic or lytic lesions. Brain sulci: Mildly prominent. Ventricles: Mild compensatory dilatation. No hydrocephalus. Extra-axial spaces: No masses, no fluid collection. Parenchyma: No mass, acute hemorrhage or acute cortical vascular insults. A few scattered and mildly confluent hypodensities in the supratentorial white matter are nonspecific but most compatible with chronic small vessel ischemic changes. Sellar/suprasellar region: No abnormalities. Craniocervical junction: Patent foramen magnum. No Chiari one malformation. Incidental findings: Atherosclerotic calcifications in the carotid siphons. Nonspecific right mastoid opacification. IMPRESSION: 1. No acute intracranial abnormalities. 2. Mild generalized cerebral volume loss. 3. Moderate chronic microvascular ischemic changes. 4. Nonspecific right mastoid opacification. Signed by: Dr. Bertin Farooq M.D. on 11/15/2018 8:26 PM
[2018-11-15] MEDS ORDERED: FUROSEMIDE INJ 10 MG/ML 4 ML VIAL IV ONE (21:30)
[2018-11-15] MEDS ORDERED: POTASSIUM CHLORIDE 20 MEQ TAB CR PO STA (22:02)
--- NOTE | 2018-11-15 22:41 | NUR ---
[facility] NOTIFIED Addendum: 11/15/18 at 2245 by FLORINDA [facility] NOTIFIED OF NEED FOR TRANSPORT BACK TO HOME.
--- NOTE | 2018-11-15 22:49 | NUR ---
spoke with family concerning wishes to be admitted, explain ER physician spoke with their primary physician and they both couldn't find any criteria for acute admission to hospital. Suggested they get with their insurance company and see if they could direct them what their next step should be for assistance. Spoke with director of case management and she agreed. All of this was explained to patient and family in room.
[2018-11-16] VITALS (9 sets, daily range): BP systolic 115–197; BP diastolic 56–90
--- NOTE | 2018-11-16 00:14 | NUR ---
PATIENT IN ROOM, EXPRESSED DESIRES TO NOT LEAVE, NOTIFIED ADMINISTRATION OF PATIENTS CONCERNS. PLUSH DRESSER IN EMERENCY ROOM NURSES STATION, ALL ADMINISTRATATIVE STAFF AWARE OF PATIENTS CONCERN.
--- NOTE | 2018-11-16 02:32 | NUR ---
patient is a new admit that arrived via stretcher. patient is alert and talking. patient has been assisted into the bed. bed is in the lowest position and call tong is within reach. will continue to monitor patient.
--- NOTE | 2018-11-16 02:45 | NUR ---
patient's blood pressure is elevated. MD notified. received new orders. will continue to monitor patient.
--- NOTE | 2018-11-16 03:01 | NUR ---
PATIENT ARRIVED TO MED-SURGE ROOM 110 AT 0222, CATRER RN RECEIVED PATIENT
[2018-11-16] MEDS: METOPROLOL TARTRATE 25 MG TAB PO SCH ×3 (03:26→17:13)
[2018-11-16] MEDS ORDERED: DULCOLAX SUPP10 MG RC (03:36)
[2018-11-16] MEDS ORDERED: NORCO 10-325 T1 EACH PO (03:36)
[2018-11-16] MEDS ORDERED: CALCIUM ACETAT667 MG PO (03:36)
[2018-11-16] MEDS ORDERED: ATORVASTATIN CA20 MG PO (03:36)
[2018-11-16] MEDS ORDERED: DOCUSATE SODIU100 M1 PO (03:36)
[2018-11-16] MEDS ORDERED: LASIX40 MG PO (03:36)
[2018-11-16] MEDS ORDERED: SALINE NOSE SPR45 ML (03:53)
[2018-11-16] MEDS ORDERED: VITAMIN D35000 UNI1 PO (03:53)
[2018-11-16] MEDS ORDERED: PANTOPRAZOLE SO40 MG PO (03:53)
[2018-11-16] MEDS ORDERED: WELLBUTRIN SR150 MG PO (03:53)
[2018-11-16] MEDS ORDERED: SENNOSIDES8.6 MG PO (03:53)
[2018-11-16] MEDS ORDERED: ZOLOFT50 MG PO (03:53)
--- NOTE | 2018-11-16 06:55 | NUR ---
report given to day nurse. patient is resting in bed. bed is in lowest position and call tong is within reach.
--- NOTE | 2018-11-16 07:17 | NUR ---
Rcvd patient in report this am. Patient is asleep in bed at this time. Family at bedside. No s/s of distress noted
[2018-11-16] MEDS: HYDROCODONE/APAP 10MG-325MG TAB PO PRN ×4 (08:59→22:28)
[2018-11-16] MEDS ORDERED: ALBUTEROL SULFATE HFA 8GM INHALATION AEROSOL INH PRN (10:00)
[2018-11-16] MEDS: PANTOPRAZOLE SOD 40 MG TABEC PO SCH (12:31)
--- NOTE | 2018-11-16 13:06 | NUR ---
WENT AND SPOKE WITH PATIENT AND EDUCATED ABOUT DEBIT AGENT CARE AND THE PAYMENT REQUIRED FOR DEBIT AGENT CARE. HE STATES THAT HE IS NOT WILLING TO GIVE UP HIS SOCIAL SECURITY CHECK TO GO TO [facility]. HE STATES DUE TO HIS DOUBLE VISION HE WAS UNABLE TO DO HIS THERAPY AT [facility]. HE STATES THAT NO ONE HAS EXPLAINED WHAT [facility] MEANT IN TERMS OF PAYMENTS. HE THOUGHT THE INSURANCE WOULD PAY LIKE FOR SKILLED. EDUCATED THAT HIS SOC SECURITY CHECK AND HIS MEDICAID WOULD PAY THE BALANCE. HE STATES DR HADLEY ASKED HIM TO ATTEMPT AT [facility]. PT STATES THAT HE WOULD LIKE FOR ME TO ATTEMPT TO GET HIM BACK IN A DIFFERENT SNF, CALLED [facility] AND SPOKE WITH LEOPOLDO [phone] TO SEE IF CAN ATTEMPT A DIFFERENT SNF DUE TO NOT A GOOD FIT, SHE STATES TO SUBMIT CLINICALS AND SHE WILL DOCUMENT ON HER SIDE.
[2018-11-16] MEDS ORDERED: PNEUMOCOCCAL VACCINE POLYVALENT 23 MCG/0.5 ML VIAL IM SCH (13:44)
--- NOTE | 2018-11-16 15:26 | NUR ---
Call placed to [facility] and spoke with Beatris and informed of patient having dialysis
--- NOTE | 2018-11-16 17:14 | NUR ---
Pneumonia vaccine given at this time in the left deltoid. No s/s of distress noted
--- NOTE | 2018-11-16 20:10 | NUR ---
ASSESSMENT DONE.NO RESP.DISTRESS.HOLLINS CARE GIVEN.GENERALIZED PAIN VOICED 02/05.REPOSITIONED.BED ALARM ON.BED LOCKED AN DIN LOWEST POSITION.PHONE AND CALL LIGHT WITHIN REACH.INSTRUCTED TO CALL FOR ASSISTANCE NEEDED.PT REFUSED TO PUT YELLOW SOCKS AND SCD .
[2018-11-16] MEDS: ATORVASTATIN 40 MG TAB PO SCH (20:43)
--- NOTE | 2018-11-16 22:58 | NUR ---
URINE COLLECTED IN ASEPTIC TECHNIQUE AND SENT TO THE LAB.
[2018-11-16 23:42] LABS: BILIRUBIN,URINE NEGATIVE (NEGATIVE); CLARITY,URINE CLOUDY (CLEAR); COLOR,URINE YELLOW (YELLOW); KETONES,URINE NEGATIVE (NEGATIVE); LEUKOCYTE ESTERASE ,URINE 1+ (NEGATIVE); NITRITE,URINE POSITIVE (NEGATIVE); PROTEIN,URINE DIPSTICK 3+ (NEGATIVE); URINE UROBILINOGEN 0.2 mg/dL (0.2 - 1)
[2018-11-16 23:55] LABS: WBC,URINE (MAN) >50 /HPF (0-5)
[2018-11-16 23:56] LABS: BACTERIA,URINE MANY /HPF; EPITHELIAL CELLS,URINE RARE /LPF; MUCUS,URINE MANY (RARE)
[2018-11-17] VITALS (8 sets, daily range): BP systolic 147–171; BP diastolic 70–80
[2018-11-17] MEDS: HYDROCODONE/APAP 10MG-325MG TAB PO PRN ×4 (05:08→21:16)
[2018-11-17 06:30] LABS: BASOPHILS % 0.2 % (0.0-1.0); EOSINOPHILS # (AUTO) 0.4 (0.0-0.4); EOSINOPHILS % 3.4 % (0.0-6.0); HEMATOCRIT 31.2 % (38.2-49.6); LYMPHOCYTES # (AUTO) 1.2 (1.0-3.2); LYMPHOCYTES % 10.4 % (18.0-39.1); MEAN CORPUSCULAR HEMOGLOBIN 31.1 pg (28-32); MEAN CORPUSCULAR HGB CONC 30.4 g/dL (31-35); MEAN CORPUSCULAR VOLUME 102.3 fL (81-99); MONOCYTES # (AUTO) 0.7 (0.2-0.8); MONOCYTES % 5.8 % (4.4-11.3); NEUTROPHILS # (AUTO) 9.4 (2.1-6.9); NEUTROPHILS % 79.7 % (38.7-80.0); PLATELET COUNT 141 x10e3/uL (140-360); RED BLOOD COUNT 3.05 x10e6/uL (4.3-5.7); RED CELL DISTRIBUTION WIDTH 16.8 % (11.7-14.4)
--- NOTE | 2018-11-17 06:35 | NUR ---
BP CHECKED AND NOTED 150/75 MMOF HG
[2018-11-17 06:42] LABS: HEMOGLOBIN 9.5 g/dL (14.0-18.0)
--- NOTE | 2018-11-17 06:50 | NUR ---
REPORT GIVEN TO THE ONCOMING RN WALKING ROUNDS DONE.STABLE CONDITION.
--- NOTE | 2018-11-17 07:19 | NUR ---
Rcvd patient in report this am. Patient is awake in bed at this time. No s/s of distress noted
[2018-11-17 08:07] LABS: ANION GAP 15.2 mmol/L (8-16); CALCIUM 8.1 mg/dL (8.4-10.2); CREATININE, SERUM 5.79 mg/dL (0.72-1.25); POTASSIUM 3.2 mmol/L (3.5-5.1)
[2018-11-17] MEDS: METOPROLOL TARTRATE 25 MG TAB PO SCH ×2 (08:22→17:00)
[2018-11-17] MEDS: DOCUSATE SODIUM 100 MG CAP PO SCH (08:22)
[2018-11-17] MEDS: ASPIRIN 81 MG CHEW TAB PO SCH (08:22)
[2018-11-17] MEDS: PANTOPRAZOLE SOD 40 MG TABEC PO SCH (08:22)
[2018-11-17] MEDS: AMLODIPINE BESYLATE 5 MG TAB PO SCH (08:23)
--- NOTE | 2018-11-17 10:08 | Consultation ---
DATE OF CONSULTATION: 11/16/2018 HISTORY OF PRESENT ILLNESS: A 73-year-old gentleman, well known to our Nephrology Service. Recent end-stage renal disease, started on dialysis. Has been admitted through the emergency room, renal consulted for management of kidney failure. He currently is awake and alert. Denies any fevers, chills, chest pain, or shortness of breath. LABORATORY DATA: Labs show white count 12.7, hemoglobin 11. Potassium 3.3. Creatinine approximately 4. BNP 3611. ALLERGIES: TRAMADOL. CURRENT MEDICATIONS: Please see MAR, shows amlodipine 5 mg daily, aspirin 81 mg daily, atorvastatin 40 mg at bedtime, Colace 100 mg daily, metoprolol 25 mg p.o. b.i.d., pantoprazole 40 mg, pneumococcal vaccine, received one dose of potassium chloride. SOCIAL HISTORY: Does not smoke or drink. PAST MEDICAL HISTORY: Significant for congestive heart failure, hypertension, end-stage renal disease, history of sleep apnea, history of increased BMI, type 2 diabetes with end-organ damage, history of BPH, chronic indwelling Ayala catheter, hyperlipidemia, COPD, degenerative joint disease, coronary artery disease with lup-VP-nmrrkov elevated AK. PHYSICAL EXAMINATION: GENERAL: Awake, alert, lying supine, in no apparent distress. VITAL SIGNS: Blood pressure 115/56, pulse rate 74, afebrile. HEAD AND NECK: Cornea clear. Mucosa moist. Neck veins flat. LUNGS: Bibasilar rales. HEART: S1 and S2, audible. ABDOMEN: Soft and nontender. EXTREMITIES: Lower extremity examination shows no edema. IMPRESSION AND PLAN: Congestive heart failure, albeit compensated, hypertension, end-stage renal disease, type 2 diabetes, hypokalemia, chronic anemia. Medications reviewed. Discussed with the patient. Discussed with bedside RN. Please see orders. Vania Castellanos MD SAK/MODL /[id number]
--- NOTE | 2018-11-17 10:42 | NUR ---
Patient is AAOx3. Patient is max assist in ADL's. Lung phillip diminished to auscultation. Bowel sounds present x4. Ayala catheter in place upon admission. Cloudy straw urine noted. Right subclavian HD cath in place. Dressing clean and dry. Chronic pain noted and prn pain meds given. No s/s of distress noted. O2 at 4L NC. No shortness of breath noted. Patient is due for dialysis this am.
--- NOTE | 2018-11-17 12:00 | NUR ---
FAXED CLINICALS TO [facility] [phone]
[2018-11-17] MEDS ORDERED: HEPARIN SOD (PORCINE) 1000 UNIT/ML SDV ONE (15:52)
[2018-11-17] MEDS ORDERED: SODIUM CHLORIDE 0.9% 1000ML 2,000 ML ONE (15:53)
[2018-11-17] MEDS ORDERED: HEPARIN SOD (PORCINE) 1000 UNIT/ML SDV IV PRN (17:00)
--- NOTE | 2018-11-17 17:00 | NUR ---
Patient receiving dialysis at this time. Tolerating well. No s/s of distress noted
[2018-11-17] MEDS ORDERED: SODIUM CHLORIDE 0.9% 1000ML 1,000 ML IV PRN (17:15)
[2018-11-17 18:29] LABS: CLARITY,URINE HAZY (CLEAR); COLOR,URINE YELLOW (YELLOW); LEUKOCYTE ESTERASE ,URINE 1+ (NEGATIVE); NITRITE,URINE NEGATIVE (NEGATIVE)
[2018-11-17 18:30] LABS: BILIRUBIN,URINE NEGATIVE (NEGATIVE); KETONES,URINE NEGATIVE (NEGATIVE); PROTEIN,URINE DIPSTICK 2+ (NEGATIVE); URINE UROBILINOGEN 0.2 mg/dL (0.2 - 1)
[2018-11-17 18:51] LABS: BACTERIA,URINE MANY /HPF; WBC,URINE (MAN) >50 /HPF (0-5)
--- NOTE | 2018-11-17 19:10 | NUR ---
REPORT TAKEN FROM AM RN.WALKING ROUNDS DONE.DIALYSIS GOING ON.
[2018-11-17] MEDS: ATORVASTATIN 40 MG TAB PO SCH (21:16)
--- NOTE | 2018-11-17 22:00 | NUR ---
DIALYSIS DONE.4 LITRE FLUID REMOVED.PT IS IN STABLE CONDITION.
[2018-11-18] VITALS: BP 95/51
[2018-11-18] MEDS: HYDROCODONE/APAP 10MG-325MG TAB PO PRN ×4 (01:29→16:03)
[2018-11-18 04:00] VITALS: BP 142/69
--- NOTE | 2018-11-18 06:50 | NUR ---
Report given to the oncoming rn.walking rounds done.stable condition.
--- NOTE | 2018-11-18 07:48 | NUR ---
PT ACCEPTED TO [facility] [address] HADLEY CALL REPORT TO [phone]
[2018-11-18 08:01] VITALS: BP 153/68
--- NOTE | 2018-11-18 08:51 | NUR ---
SPOKE TO DR. HADLEY REGARDING PATIENT LAB RESULTING RESULTING HEPATITIS B CORE POSITIVE, DR. HADLEY STATED, "YES HE IS IMMUNIZED FOR HEPATIS B."
[2018-11-18] MEDS: PANTOPRAZOLE SOD 40 MG TABEC PO SCH (10:16)
[2018-11-18] MEDS: CEFUROXIME AXETIL 250 MG TAB PO SCH ×2 (10:16→16:02)
[2018-11-18] MEDS: DOCUSATE SODIUM 100 MG CAP PO SCH (10:17)
[2018-11-18] MEDS: ASPIRIN 81 MG CHEW TAB PO SCH (10:17)
[2018-11-18] MEDS: METOPROLOL TARTRATE 25 MG TAB PO SCH ×2 (10:18→16:03)
[2018-11-18] MEDS: AMLODIPINE BESYLATE 5 MG TAB PO SCH (10:18)
[2018-11-18 10:50] VITALS: BP 153/68
[2018-11-18 13:16] VITALS: BP 131/61
--- NOTE | 2018-11-18 15:20 | NUR ---
CALLED [phone], GAVE REPORT TO AMBAR MCCLURE FOR PAT TO GO TO ROOM 311B.
[2018-11-18 16:38] VITALS: BP 149/70
--- NOTE | 2018-11-18 20:13 | Discharge Summary ---
See also ER notes and history and physical. Patient presented to the ER and was hospitalized for placement in a more structured environment as he was unable to care for himself. He was continued on dialysis. His case was reassessed by resident services supervisor while here. He was followed daily by his pre k teacher. Chronic medical difficulties were reassessed and treated. Database was monitored. The patient was improved at the time of discharge. He had some wheezing noted by a blueprint duplicator at home prior to presentation here. He notes chronic shortness of breath. See also extensive recent stay here. FINAL IMPRESSION: 1. End-stage renal failure, on chronic hemodialysis. Right subclavian line for dialysis. 2. Multiple severe chronic medical illnesses including chronic morbid exogenous obesity. Type 2 diabetes mellitus. Hyperlipoproteinemia. Hypertension. Chronic obstructive pulmonary disease. Gastroesophageal reflux disease. Degenerative joint disease especially of the knees and back. Chronic severe pain. Chronic opioid analgesics. Venous stasis. Chronically Ayala with recurrent bacteriuria. Patient did receive antibiotics while here. Pyuria on urinalysis and culture pending. See serial laboratory, and imaging studies here with small right effusion. See final discharge med list. The patient was [facility] on [facility]. Orders there were discussed with the admitting nurse. Prognosis is guarded. ASHWIN HADLEY MD Job#: [id number]
--- NOTE | 2018-11-21 06:26 | Consultation ---
DATE OF CONSULTATION: 11/18/2018 HISTORY OF PRESENT ILLNESS: This 73-year-old patient was kindly referred by Dr. Oscar for cardiovascular evaluation. The patient is mainly complaining of shortness of breath, which occurs at rest and with minimal exertion. The patient is mostly bedridden and wheelchair bound because of severe degenerative joint disease. The patient also has a history of coronary artery disease. He underwent cardiac catheterization in September and found to have mild left main stenosis and mild stenotic areas in the LAD _and dominant left circumflex system _without significant stenosis. The right coronary artery was nondominant and had a high grade stenosis in the mid portion to 99%, however, as stated this is a nondominant small right coronary artery. Left ventricular angiogram was not performed because of the patient's kidney disease, however, echocardiogram was performed at that time, which revealed an ejection fraction of 40%, which is significantly less from an ejection fraction in 2017 being 60%. The patient is now on hemodialysis using a tunneled Gentry catheter from the right subclavian region. PAST MEDICAL HISTORY: The patient's past history reveals that he had appendectomy, left total knee replacement, which apparently became infected and required lengthy stay at [facility]. He also indicated that he had surgical right leg alignment because of deformity on the right leg. He has diabetic neuropathy and severe COPD. He has sleep apnea and he is on home oxygen, but he is unable to tolerate the CPAP and BiPAP. The patient also has benign prostatic hypertrophy and is wearing a chronic Ayala catheter mainly because of incontinence. The patient also has hyperlipidemia. SOCIAL HISTORY: The patient has been heavy smoker for 40 years and he stopped smoking in 1999. ALLERGIES: HALLUCINATION WITH TRAMADOL. FAMILY HISTORY: Noncontributory. REVIEW OF SYSTEMS: The remainder of systems revealed the patient denies any headache or sore throat. The patient denies any cough or sputum production. He is able to tolerate the bronchodilators. The patient denies any abdominal pain. He has chronic leg pains, but he is able to move all 4 extremities. PHYSICAL EXAMINATION: VITAL SIGNS: Reveals a blood pressure of 140/82. NECK: Carotid pulses are present without any bruits. CHEST: Reveals decreased breath sounds over both lungs. There are no wheezes and no rales. CARDIOVASCULAR: normal apical impulse. The rhythm is regular. First and second heart sounds normal. There is no S3 and there is no rub. ABDOMEN: Soft. There is no tenderness or organomegaly. EXTREMITIES: Dorsalis pedis pulses are 2+ bilateral. Posterior tibial pulses could not be palpated. There is 1+ edema. NEUROLOGIC: Does not reveal any motor defect. DIAGNOSTIC DATA: The patient's brain scan was reviewed and did not show any evidence of CVA. Echocardiogram and cardiac catheterizations were also reviewed and described above. The patient's laboratory data is compatible with end-stage renal disease. He also has shown chronic anemia, which also most likely is secondary to his kidney disorder. The patient is scheduled for transfer to [facility] and I can follow him over there. With the patient's fluid overload, it may be preferable to try beta blocking agents other than amlodipine .I agree completely with his treatment plan and management and continuous care at [facility]. Thank you very much for letting me see this very nice patient. MD JONAS JcH/MARLENAL /[id number] SHABNAM
== END 2018-11-18 16:36 ==
LOC: ER 17:47 → ERHOLD 11-16 01:09 → MED/SURG 11-16 02:17
PROVIDERS: ADMIT Internal Medicine; ATTEND Internal Medicine
DX: I13.11 Hypertensive heart and chronic kidney disease without heart failure, with stage 5 chronic kidney disease, or end stage renal disease (principal); Z99.3 Dependence on wheelchair; I25.10 Atherosclerotic heart disease of native coronary artery without angina pectoris; E11.40 Type 2 diabetes mellitus with diabetic neuropathy, unspecified; J44.9 Chronic obstructive pulmonary disease, unspecified; E78.5 Hyperlipidemia, unspecified; N40.1 Benign prostatic hyperplasia with lower urinary tract symptoms; N39.498 Other specified urinary incontinence; Z99.81 Dependence on supplemental oxygen; E11.22 Type 2 diabetes mellitus with diabetic chronic kidney disease; N18.6 End stage renal disease; Z99.2 Dependence on renal dialysis; Z79.4 Long term (current) use of insulin; D63.1 Anemia in chronic kidney disease; G47.30 Sleep apnea, unspecified; M19.90 Unspecified osteoarthritis, unspecified site; I25.2 Old myocardial infarction; Z79.891 Long term (current) use of opiate analgesic; Z79.899 Other long term (current) drug therapy; I87.2 Venous insufficiency (chronic) (peripheral); E66.01 Morbid (severe) obesity due to excess calories; Z68.41 Body mass index [BMI] 40.0-44.9, adult; G89.29 Other chronic pain; R82.71 Bacteriuria; Z87.891 Personal history of nicotine dependence; I50.9 Heart failure, unspecified
CPT/HCPCS: 36415 ×2; 70450; 71045; 80048; 80053; 81001 ×2; 82550; 82553; 83036; 83518; 83605; 83735; 83880; 84443; 84484; 85025 ×2; 85610; 85730; 86704; 86705; 86706; 87040; 87070; 87086 ×2; 87186; 87340; 87400; 90732; 90970; 93005; 97110; 97139 ×2; 97162; 97530 ×2; 99284; G0378 ×3; J1644; J7030; S0164 ×3; 90962; J1940

== ENCOUNTER 2019-01-19 21:58 | Observation (INO) | payer OTHER ==
[~2019-01-19] VITALS: Ht 172.7 cm; Wt 122.5 kg
[~2019-01-19 21:58] MED LIST changes: +ATORVASTATIN CA20 MG PO; +CALCIUM ACETAT667 MG PO; +DOCUSATE SODIU100 M1 PO; +DULCOLAX SUPP10 MG RC; +LASIX40 MG PO; +PANTOPRAZOLE SO40 MG PO; +SALINE NOSE SPR45 ML; +SENNOSIDES8.6 MG PO; +VITAMIN D35000 UNI1 PO; +WELLBUTRIN SR150 MG PO; +ZOLOFT50 MG PO
[2019-01-19] MEDS ORDERED: CEFTRIAXONE SOD 1 GM/NS 50 ML 50 ML IV STA (22:14)
--- NOTE | 2019-01-19 22:39 | Diagnostic Imaging Report ---
EXAMINATION: CHEST SINGLE (PORTABLE) INDICATION: Chest pain. COMPARISON: Chest x-ray November 15, 2018. FINDINGS: AP view portable TUBES and LINES: Right IJ tunneled dialysis catheter tip overlies the right atrium, unchanged in position. LUNGS Central pulmonary venous congestion. Bibasilar subsegmental atelectasis. PLEURA: Small right pleural effusion. No pneumothorax. HEART AND MEDIASTINUM: Cardiac size is mildly enlarged. BONES AND SOFT TISSUES: No acute osseous lesion. Soft tissues are unremarkable. UPPER ABDOMEN: No free air under the diaphragm. IMPRESSION: Central pulmonary venous congestion with right pleural effusion with similar appearance compared to the prior examination. Signed by: Dr. Liana Ramos M.D. on 01/19/2019 10:36 PM
[2019-01-19 22:55] LABS: BASOPHILS % 0.3 % (0.0-1.0); EOSINOPHILS # (AUTO) 0.2 (0.0-0.4); EOSINOPHILS % 1.4 % (0.0-6.0); HEMOGLOBIN 11.6 g/dL (14.0-18.0); LYMPHOCYTES # (AUTO) 0.5 (1.0-3.2); LYMPHOCYTES % 4.3 % (18.0-39.1); MEAN CORPUSCULAR HEMOGLOBIN 30.2 pg (28-32); MEAN CORPUSCULAR HGB CONC 31.4 g/dL (31-35); MEAN CORPUSCULAR VOLUME 96.4 fL (81-99); MONOCYTES # (AUTO) 0.7 (0.2-0.8); MONOCYTES % 5.8 % (4.4-11.3); NEUTROPHILS # (AUTO) 10.5 (2.1-6.9); NEUTROPHILS % 87.6 % (38.7-80.0); PLATELET COUNT 135 x10e3/uL (140-360); RED BLOOD COUNT 3.84 x10e6/uL (4.3-5.7); RED CELL DISTRIBUTION WIDTH 16.5 % (11.7-14.4)
[2019-01-19 23:13] LABS: ALBUMIN 2.5 g/dL (3.5-5.0); ALBUMIN/GLOBULIN RATIO 0.4 (0.8-2.0); ANION GAP 14.2 mmol/L (8-16); CALCIUM 8.6 mg/dL (8.4-10.2); CREATININE, SERUM 2.98 mg/dL (0.72-1.25); POTASSIUM 3.2 mmol/L (3.5-5.1)
[2019-01-19 23:22] LABS: CREATINE KINASE MB 4.8 ng/mL (0-5.0)
[2019-01-20] VITALS (7 sets, daily range): BP systolic 122–190; BP diastolic 62–101
--- NOTE | 2019-01-20 00:09 | NUR ---
PLACED CALL TO LAB FOR URINE AND SPUTUM RESULTS, STATES "I AM RUNNING SPECIMENS"
[2019-01-20] MEDS ORDERED: DILTIAZEM HCL 5 MG/ML 5 ML VIAL IV STA (00:36)
[2019-01-20] MEDS ORDERED: HYDRALAZINE HCL 20 MG/ML VIAL IV PRN (01:15)
[2019-01-20] MEDS ORDERED: DEXTROSE 50% SYRINGE 50 ML IV PRN (01:15)
--- OUTSIDE RECORDS SUMMARY | 2019-01-20 01:48 | XMS REPORT ---
Author Author [facility] Address Unknown Phone Unavailable Care Team Providers Care Technology Coordinator Name Role Phone Brodie ENGLAND Unavailable Unavailable SWEET, Niall LAIRD Unavailable Unavailable ASHWIN HADLEY Unavailable Unavailable Problems This patient has no known problems. Allergies, Adverse Reactions, Alerts This patient has no known allergies or adverse reactions. Medications This patient has no known medications. Results Test Description Test Time Test Comments Text Results Atomic Results Result Comments CHEST SINGLE (PORTABLE) 2019-01-19 22:35:00 [facility] [address] [place] [address] Patient Name: PAULA CALDERON MR #: [id number] : 1945 Age/Sex: 73/M Req #: [id number] Adm Physician: Ordered by: SHALINI NEGLAND MD Report #: [id number] Location: ER Room/Bed: Procedure: [id number] DX/CHEST SINGLE (PORTABLE) Exam Date: 01/19/19 Exam Time: 2200 REPORT STATUS: Signed EXAMINATION: CHEST SINGLE (PORTABLE) IND ICATION: Chest pain. COMPARISON: Chest x-ray November 15, 2018. FINDINGS: AP view portable TUBES and LINES: Right IJ tunneled dialysis catheter tip overlies the right atrium, unchanged in position. LUNGS Central pulmonary venous congestion. Bibasilar subsegmental atelectasis. PLEURA: Small right pleural effusion. No pneumothorax. HEART AND MEDIASTINUM: Cardiac size is mildly enlarged. BONES AND SOFT TISSUES: No acute osseous lesion. Soft tissues are unremarkable. UPPER ABDOMEN: No free air under the diaphragm. IMPRESSION: Central pulmonary venous congestion with right pleural effusion with similar appearance compared to the prior examination. Signed by: Dr. Liana Pabon M.D. on 01/19/2019 10:36 PM Dictated By: CRISPIN PABON MD, MD 35 Transcribed By: STEVE on 01/19/192235 COPY TO: SHALINI ENGLAND MD CT BRAIN WO 2018-11-15 20:19:00 [place] [address] Patient Name: PAULA CALDERON MR #: [id number] : 1945 Age/Sex: 73/M Req #: [id number] Adm Physician: Ordered by: ESTEBAN JARAMILLO MD Report #: [id number] Location: ER Room/Bed: Procedure: [id number] CT/CT BRAIN WO Exam Date: 11/15/18 Exam Time: 1848 REPORT STATUS: Signed Exam: Head CT without contrast History: Shortness of breath , double vision, blurry vision Comparison studies: None Technique: Axial images were obtained from the skull base to the vertex. Coronal and sagittal images reconstructed from the axial data. Dose modulation, iterative reconstruction, and/or weight based adjustment of the mA/kV was utilized to reduce the radiation dose to as low as reasonably achievable. Radiation dose: Total DLP: 921 mGy*cm. Estimated effective dose: DLP x 0.015 Intravenous contrast: None Findings: Scalp: No abnormalities. Bones: No fractures, blastic or lytic lesions. Brain sulci: Mildly prominent. Ventricles: Mild compensatory dilatation. No hydrocephalus. Extra-axial spaces: No masses, no fluid collection. Parenchyma: No mass, acute hemorrhage or acute cortical vascular insults. A few scattered and mildly confluent hypodensities in the supratentorial white matter are nonspecific but most compatible with chronic small vessel ischemic changes. Sellar/s uprasellar region: No abnormalities. Craniocervical junction: Patent foramen magnum. No Chiari one malformation. Incidental findings: Atherosclerotic calcifications in the carotid siphons. Nonspecific right mastoid opacification. IMPRESSION: 1. No acute intracranial abnormalities. 2. Mild generalized cerebral volume loss. 3. Moderate chronic microvascular ischemic changes. 4. Nonspecific right mastoid opacification. Signed by: Dr. German Lynn M.D. on 11/15/2018 8:26 PM Dictated By: GERMAN LYNN MD 25 Transcribed By: STEVE on 11/15/182025 COPY TO: ESTEBAN JARAMILLO MD CHEST SINGLE (PORTABLE) 2018-11-15 18:56:00 [place] [address] Patient Name: PAULA CALDERON MR #: [id number] : 1945 Age/Sex: 73/M Req #: [id number] Adm Physician: Ordered by: ESTEBAN JARAMILLO MD Report #: [id number] Location: ER Room/Bed: Procedure: [id number] DX/CHEST SINGLE (PORTABLE) Exam Date: 11/15/18 Exam Time: 1850 REPORT STATUS: Signed EXAMINATION: CHEST SINGLE (PORTABLE) INDIC ATION: SOB COMPARISON: Chest x-ray FINDINGS: AP view TUBES and LINES: Right IJ tunneled dialysis catheter tip overlies the right atrium. LUNGS: Lungs are well inflated. Central pulmonary venous congestion. There is no evidence of pneumonia or pulmonary edema. PLEURA: Small right pleural effusion. No pneumothorax. HEART AND MEDIASTINUM: Cardiac size is mildly enlarged. BONES AND SOFT TISSUES: No acute osseous lesion. Soft tissues are unremarkable. UPPER ABDOMEN: No free air under the diaphragm. IMPRESSION: Central pulmonary venous congestion with right pleural effusion. Signed by: DR. Pacheco Anne MD on 11/15/2018 7:00 PM Dictated By: PACHECO ANNE MD 99 Transcribed By: STEVE on 11/15/181899 COPY TO: ESTEBAN JARAMILLO MD SPECIAL PROCEDURE IN COMPLAINT OPERATOR 2018-10-02 16:17:00 [place] [address] Patient Name: PAULA CALDERON MR #: [id number] : 1945 Age/Sex: 73/M Req #: [id number] Adm Physician: ASHWIN HADLEY MD Ordered by: JATINDER GLOVER, NGUYEN GLOVER Report #: [id number] Location: MED/SURG Room/Bed: [facility] Procedure: [id number] IR/SPECIAL PROCEDURE IN COMPLAINT OPERATOR Exam Date: Exam Time: REPORT STATUS: Signed Procedure: Tunneled hemodialysis catheter placement. Medications: 1% lidocaine. Patient also received 1 g of Ancef prior to the procedure. The patient's vital signs, including pulse oximetry, were continuously monitored by the interventional radiology nurse. Fluoroscopy time: 0.6 minutes. Dose area product: 207.5 cGycm2 Contrast used: None Estimated blood loss: Less than 5 cc Complications: No immediate. Procedure in detail: Informed consent for the procedure was obtained from the patient after discussion of risks and benefits. The right neck and upper chest was prepped and draped in the standard sterile fashion after the patient was placed in the supine position on the fluoroscopic table. 1% lidocaine was administered into the skin and subcutaneous tissues of the right lower neck for local anesthesia. A 0.035 inch Amplatz superstiff wire was then advanced through the central lumen of the right IJ temporary dialysis catheter. Attention was then turned to the right upper chest. A suitable catheter exit site was determined, approximately 3 fingerbreadths inferior to the clavicle. The skin was marked. 1% lidocaine was used to anesthetize a subcutaneous tract extending from the planned catheter exit site to the venotomy at the right lower neck. A stab incision was made on the right upper chest. Subsequently, the catheter was tunneled from the exit site of the right upper chest to the venotomy at the right lower neck. The retention cuff of the catheter was advanced well into the subcutaneous tunnel. A 16.5- Lebanese peel-away sheath was advanced over the wire under fluoroscopic guidance. The wire and inner dilator of the sheath were removed and the catheter was advanced through the peel-away sheath, which was then broken and removed. The catheter tips was positioned in the right atrium. Each catheter lumen showed good bidirectional flow. Each lumen was then packed with 2000 units of heparin. The catheter was secured at the exit site on the right upper chest with monofilament nylon suture. A purse string suture utilizing 4-0 Vicryl at the entry site into the skin was placed around the catheter. The venotomy at the right lower neck was closed with interrupted 4-0 Vicryl sutures. A sterile dressing was applied. The patient tolerated the procedure well without immediate complication. Impression: 1. Successful placement of a Bard split tip tunneled dual-lumen hemodialysis catheter (16-Lebanese, 23-cm tip-cuff length) by a right internal jugular approach. 2. The line is OK for immediate use. Signed by: Dr. Rohit alexis DO on 10/02/2018 4:24 PM Dictated By: ROHIT FERRELL DO 9 Transcribed By: STEVE on 10/05/18899 COPY TO: NGUYEN TOBIAS IR CONSULT 2018-10-02 16:17:00 [place] [address] Patient Name: PAULA CALDERON MR #: [id number] : 1945 Age/Sex: 73/M Req #: [id number] Adm Physician: ASHWIN HADLEY MD Ordered by: NGUYEN TOBIAS MD, MD Report #: [id number] Location: MED/SURG Room/Bed: [facility] Procedure: [id number] DX/IR CONSULT Exam Date: Exam Time: REPORT STATUS: Signed Procedure: Tunneled hemodialysis catheter placement. Medications: 1% lidocaine. Patient also received 1 g of Ancef prior to the procedure. The patient's vital signs, including pulse oximetry, were continuously monitored by the interventional radiology nurse. Fluoroscopy time: 0.6 minutes. Dose area product: 207.5 cGycm2 Contrast used: None Estimated blood loss: Less than 5 cc Complications: No immediate. Procedure in detail: Informed consent for the procedure was obtained from the patient after discussion of risks and benefits. The right neck and upper chest was prepped and draped in the standard sterile fashion after the patient was placed in the supine position on the fluoroscopic table. 1% lidocaine was administered into the skin and subcutaneous tissues of the right lower neck for local anesthesia. A 0.035 inch Amplatz superstiff wire was then advanced through the central lumen of the right IJ temporary dialysis catheter. Attention was then turned to the right upper chest. A suitable catheter exit site was determined, approximately 3 fingerbreadths inferior to the clavicle. The skin was marked. 1% lidocaine was used to anesthetize a subcutaneous tract extending from the planned catheter exit site to the venotomy at the right lower neck. A stab incision was made on the right upper chest. Subsequently, the catheter was tunneled from the exit site of the right upper chest to the venotomy at the right lower neck. The retention cuff of the catheter was advanced well into the subcutaneous tunnel. A 16.5-Lebanese peel-away sheath was advanced over the wire under fluoroscopic guidance. The wire and inner dilator of the sheath were removed and the catheter was advanced through the peel-away sheath, which was then broken and removed. The catheter tips was positioned in the right atrium. Each catheter lumen showed good bidirectional flow. Each lumen was then packed with 2000 units of heparin. The catheter was secured at the exit site on the right upper chest with mo nofilament nylon suture. A purse string suture utilizing 4-0 Vicryl at the entry site into the skin was placed around the catheter. The venotomy at the right lower neck was closed with interrupted 4-0 Vicryl sutures. A sterile dressing was applied. The patient tolerated the procedure well without immediate complication. Impression: 1. Successful placement of a Bard split tip tunneled dual-lumen hemodialysis catheter (16-Lebanese, 23-cm tip-cuff length) by a right internal jugular approach. 2. The line is OK for immediate use. Signed by: Dr. Rohit Ferrell DO on 10/02/2018 4:24 PM Dictated By: ROHIT FERRELL DO 9 Transcribed By: STEVE on 10/05/18899 COPY TO: NGUYEN TOBIAS [facility] (PORTABLE) 2018-09-30 12:10:00 [place] [address] Patient Name: PAULA CALDERON MR #: [id number] : 1945 Age/Sex: 73/M Req #: [id number] Adm Physician: ASHWIN HADLEY MD Ordered by: GERMAN SHINE MD Report #: [id number] Location: MED/SURG Room/Bed: [facility] Procedure: [id number] DX/CHEST SINGLE (PORTABLE) Exam Date: 09/30/18 Exam Time: 1025 REPORT STATUS: Signed EXAM: XR CHEST 1 VIEW DATE: 09/30/2018 8:09 AM INDICATION: CHF COMPARISON: Chest radiograph 09/24/2018. FINDINGS: Lines and Tubes: Right IJ non tunneled central venous catheter terminates in the lower SVC. Heart and Mediastinum: Heart remains mildly enlarged. Lungs and Pleura: There is perihilar fullness and indistinctness of the pulmonary vasculature. Persistent moderate right and trace left pleural effusion. Bones and Soft Tissues: No acute findings. IMPRESSION: Persistent mild pulmonary interstitial edema and moderate right and trace left pleural effusion. Signed by: Dr. Pamela Gaytan MD on 09/30/2018 12:15 PM Dictated By: PAMELA GAYTAN MD 1215 Transcribed By: STEVE on 09/30/18 1215 COPY TO: GERMAN SHINE MD CHEST SINGLE (PORTABLE) 2018-09-24 07:36:00 [place] [address] Patient Name: PAULA CALDERON MR #: [id number] : 1945 Age/Sex: 73/M Req #: [id number] Adm Physician: JANIA MORTON MD Ordered by: JATINDER GLOVER, NGUYEN GLOVER Report #: [id number] Location: ICU Room/Bed: ICU [facility] Procedure: [id number] DX/CHEST SINGLE (PORTABLE) Exam Date: 09/24/18 Exam Time: 0707 REPORT STATUS: Signed EXAM: XR CHEST 1 VIEW DATE: 09/24/2018 6:59 AM INDICATION: CHF COMPARISON: 09/21/2018, no report available FINDINGS: Lines and Tubes: Right IJ catheter tip distal SVC. Heart and Mediastinum: Heart remains mildly enlarged. Lungs and Pleura: Perihilar fullness, perihilar cuffing, mild interstitial opacities, trace left effusion, and moderate right effusion, stable. Bones and Soft Tissues: No acute findings. IMPRESSION: 1. Stable volume overload with asymmetric to the right effusions. Signed by: Dr. Rajani Olivarez MD on 09/24/2018 7:36 AM Dictated By: RAJANI OLIVAREZ MD 5 Transcribed By: STEVE on 09/24/18735 COPY TO: NGUYEN TOIBAS RENAL RETROPERITONEAL COMP 2018-09-21 17:42:00 [place] [address] Patient Name: PAULA CALDERON MR #: [id number] : 1945 Age/Sex: 73/M Req #: [id number] Adm Physician: JANIA MORTON MD Ordered by: NGUYEN TOBIAS MD, MD Report #: [id number] Location: ICU Room/Bed: [place] [address] Procedure: [id number] US/US RENAL RETROPERITONEAL COMP Exam Date: 09/21/18 Exam Time: 1708 REPORT STATUS: Signed EXAM: Renal Ultrasound INDICATION: arabella COMPARISON: None TECHNIQUE: Transverse and longitudinal images of the kidneys and bladder were obtained. FINDINGS: Right Kidney: (Limited views) Size: 6.7 x 6.1 x 4.5 cm Echogenicity: Normal Parenchymal thickness: Normal Collecting system: No hydronephrosis Stones: None Cyst/Mass: None Left Kidney: Size: 10.4 x 6.2 x 5.2 cm Echogenicity: Normal Parenchymal thickness: Normal Collecting system: No hydronephrosis Stones: None Cyst/Mass: None Bladder: Decompressed with a Ayala catheter in place. IMPRESSION: 1. Limited views of the right kidney. 2. Normal left kidney. Signed by: Dr. Bharat Hood M.D. on 09/21/2018 5:53 PM Dictated By: BHARAT HOOD MD 52 Transcribed By: STEVE on 09/21/181752 COPY TO: NGUYEN TOBIAS IR CONSULT 2018-09-21 16:24:00 [place] [address] Patient Name: PAULA CALDERON MR #: [id number] : 1945 Age/Sex: 73/M Req #: [id number] Adm Physician: ASHWIN HADLEY MD Ordered by: JATINDER GLOVER, NGUYEN GLOVER Report #: [id number] Location: MED/SURG Room/Bed: [facility] Procedure: [id number] DX/IR CONSULT Exam Date: Exam Time: REPORT STATUS: Signed ADDENDUM #1 Addendum: Permanent sonographic image of a patent right internal jugular vein as well as access of the right internal jugular vein with micropuncture needle was obtained and stored in the medical record. Signed by: Dr. Pamela Gaytan MD on 09/30/2018 5:36 PM ORIGINAL REPORT Procedure: Right internal jugular non- tunneled hemodialysis catheter placement with ultrasound guidance ad terminal makeup operator: Dr. Pamela Gaytan Pre-operative diagnosis: Requiring central venous and HD access. Post-operative diagnosis: Status post central venous and HD access placement Sedation: Local Additional Medications: 10 cc Lidocaine 1% for local anesthesia Estimated blood loss: None Specimens: None Implants: 13 Fr x 15 cm Trialysis non-tunneled hemodialysis catheter TECHNIQUE/FINDINGS: Informed consent was obtained from the patient and documented in the medical record after discussion of risks and benefits. The patient was placed in the supine position. Preliminary sonographic evalua tion of the right neck confirmed a patent and compressible right internal jugular vein. The neck was then prepped and draped in a standard sterile fashion. Subsequently, 1% lidocaine was infiltrated into the skin and subcutaneous tissues for local anesthesia. Then under continuous sonographic guidance, a 21 gauge needle was advanced into the right internal jugular vein and an .018'' wire was placed. A 5 Fr micropuncture sheath was placed and the existing wire was exchanged for an .035'' Amplatz wire. The tract was sequentially dilated. Then, a 13 Fr x 15 cm Trialysis triple lumen non- tunneled hemodialysis catheter was advanced. The wire was then removed. Each lumen was tested and showed adequate bidirectional flow. The catheter was secured to the skin with Monocryl, flushed with saline, and covered by a sterile dressing. No evidence of immediate complication. IMPRESSION: Placement of a right IJ non-tunneled triple lumen hemodialysis catheter with ultrasound guidance as above. Signed by: Dr. Pamela Gaytan MD on 09/21/2018 4:27 PM Dictated By: PAMELA GAYTAN MD 4300 Transcribed By: STEVE on 09/21/18 1627 COPY TO: NGUYEN TOBIAS NON-TUNNELLED CVC CATH PLACMNT 2018-09-21 16:24:00 [place] [address] Patient Name: PAULA CALDERON MR #: [id number] : 1945 [facility] 73[id number] #: [id number] [facility] Physician: ASHWIN HADLEY MD Ordered by: JATINDER GLOVER, NGUYEN GLOVER Report #: [id number] Location: MED/SURG Room/Bed: [facility] Procedure: [id number] IR/NON-TUNNELLED CVC CATH PLACMNT Exam Date: 09/21/18 Exam Time: 1441 REPORT STATUS: Signed ADDENDUM #1 Addendum: Permanent sonographic image of a patent right internal jugular vein as well as access of the right internal jugular vein with micropuncture needle was obtained and stored in the medical record. Signed by: Dr. Pamela Gaytan MD on 09/30/2018 5:36 PM ORIGINAL REPORT Procedure: Right internal jugular non-tunneled hemodialysis catheter placement with ultrasound guidance ad terminal makeup operator: Dr. Pamela Gaytan Pre-operative diagnosis: Requiring central venous and HD access. Post-operative diagnosis: Status post central venous and HD access placement Sedation: Local Additional Medications: 10 cc Lidocaine 1% for local anesthesia Estimated blood loss: None Specimens: None Implants: 13 Fr x 15 cm Trialysis non-tunneled hemodialysis catheter TECHNIQUE/FINDINGS: Informed consent was obtained from the patient and documented in the medical record after discussion of risks and benefits. The patient was placed in the supine position. Preliminary sonographic evaluation of the right neck confirmed a patent and compressible right internal jugular vein. The neck was then prepped and draped in a standard sterile fashion. Subsequently, 1% lidocaine was infiltrated into the skin and subcutaneous tissues for local anesthesia. Then under continuous sonographic guidance, a 21 gauge needle was advanced into the right internal jugular vein and an .018'' wire was placed. A 5 Fr micropuncture sheath was placed and the existing wire was exchanged for an .035'' Amplatz wire. The tract was sequentially dilated. Then, a 13 Fr x 15 cm Trialysis triple lumen non-tunneled hemodialysis catheter was advanced. The wire was then removed. Each lumen was tested and showed adequate bidirectional flow. The catheter was secured to the skin with Monocryl, flushed with saline, and covered by a sterile dressing. No evidence of immediate complication. IMPRESSION: Placement of a right IJ non-tunneled triple lumen hemodialysis catheter with ultrasound guidance as above. Signed by: Dr. Pamela Gaytan MD on 09/21/2018 4:27 PM Dictated By: PAMELA GAYTAN MD 9370 Transcribed By: STEVE on 09/21/18 1627 COPY TO: NGUYEN TOBIAS US GUIDANCE FOR VASCULAR ACCES 2018-09-21 16:24:00 [place] [address] Patient Name: PAULA CALDERON MR #: [id number] : 1945 Age/Sex: 73/M Req #: [id number] Adm Physician: ASHWIN HADLEY MD Ordered by: JATINDER GLOVER, NGUYEN GLOVER Report #: [id number] Location: MED/SURG Room/Bed: [facility] Procedure: [id number] US/US GUIDANCE FOR VASCULAR ACCES Exam Date: 09/21/18 Exam Time: 1441 REPORT STATUS: Signed ADDENDUM #1 Addendum: Permanent sonographic image of a patent right internal jugular vein as well as access of the right internal jugular vein with micropuncture needle was obtained and stored in the medical record. Signed by: Dr. Pamela Gaytan MD on 09/30/2018 5:36 PM ORIGINAL REPORT Procedure: Right internal jugular non-tunneled hemodialysis catheter placement with ultrasound guidance ad terminal makeup operator: Dr. Pamela Gaytan Pre-operative diagnosis: Requiring central venous and HD access. Post-operative diagnosis: Status post central venous and HD access placement Sedation: Local Additional Medications: 10 cc Lidocaine 1% for local anesthesia Estimated blood loss: None Specimens: None Implants: 13 Fr x 15 cm Trialysis non-tunneled hemodialysis catheter TECHNIQUE/FINDINGS: Informed consent was obtained from the patient and documented in the medical record after discussion of risks and benefits. The patient was placed in the supine position. Preliminary sonographic evaluation of the right neck confirmed a patent and compressible right internal jugular vein. The neck was then prepped and draped in a standard sterile fashion. Subsequently, 1% lidocaine was infiltrated into the skin and subcutaneous tissues for local anesthesia. Then under continuous sonographic guidance, a 21 gauge needle was advanced into the right internal jugular vein and an .018'' wire was placed. A 5 Fr micropuncture sheath was placed and the existing wire was exchanged for an .035'' Amplatz wire. The tract was sequentially dilated. Then, a 13 Fr x 15 cm Trialysis triple lumen non-tunneled hemodialysis catheter was advanced. The wire was then removed. Each lumen was tested and showed adequate bidirectional flow. The catheter was secured to the skin with Monocryl, flushed with saline, and covered by a sterile dressing. No evidence of immediate complication. IMPRESSION: Placement of a right IJ non-tunneled triple lumen hemodialysis catheter with ultrasound guidance as above. Signed by: Dr. Pamela Gaytan MD on 09/21/2018 4:27 PM Dictated By: PAMELA GAYTAN MD 1332 Transcribed By: STEVE on 09/21/18 1627 COPY TO: NGUYEN TOBIAS CHEST XRAY LINE PLACEMENT 2018-09-21 16:19:00 [place] [address] Patient Name: PAULA CALDERON MR #: [id number] : 1945 Age/Sex: 73/M Req #: [id number] Adm Physician: JANIA MORTON MD Ordered by: PAMELA GAYTAN MD Report #: [id number] Location: ICU Room/Bed: ICU [facility] Procedure: [id number] DX/CHEST XRAY LINE PLACEMENT Exam Date: 09/21/18 Exam Time: 1545 REPORT STATUS: Signed EXAMINATION: CHEST XRAY LINE PLACEMENT BRANDON CATION: Check non tunneled cath placement COMPARISON: 09/21/2018 1:29 AM hours FINDINGS: TUBES and LINES: Right IJ central venous catheter with distal tip projected on the SVC just proximal to the cavoatrial junction. LUNGS: Mild bilateral pulmonary venous congestion. PLEURA: Small right pleural effusion and bibasilar subsegmental atelectasis versus consolidation. The left lateral lower hemithorax was not included. No pneumothorax. HEART AND MEDIASTINUM: The cardiomediastinal silhouette is unremarkable. BONES AND SOFT TISSUES: No acute osseous lesion. Soft tissues are unremarkable. UPPER ABDOMEN: No free air under the diaphragm. IMPRESSION: Interval placement of a right IJ central venous catheter with distal tip projected on the SVC just proximal to the cavoatrial junction Signed by: Dr. Liana Pabon M.D. on 09/21/2018 4:22 PM Dictated By: CRISPIN PABON MD, MD 21 Transcribed By: STEVE on 09/21/181621 COPY TO: PAMELA GAYTAN MD CHEST SINGLE (PORTABLE) 2018-09-21 01:49:00 [place] [address] Patient Name: PAULA CALDERON MR #: [id number] : 1945 Age/Sex: 73/M Req #: [id number] Adm Physician: JANIA MORTON MD Ordered by: SHALINI ENGLAND MD Report #: [id number] Location: [facility] Room/Bed: [place] [address] Procedure: [id number] DX/CHEST SINGLE (PORTABLE) Exam Date: Exam Time: REPORT STATUS: Signed CHEST SINGLE (PORTABLE), 09/21/2018 1:21 AM Technique: CH EST SINGLE (PORTABLE) Comparison: 04/16/2017 Clinical history: Shortness of breath Findings: See Impression Impression: Limited by portable technique and overlying soft tissues. 1. Stable enlarged cardiac silhouette. 2. Central vascular congestion and/or mild edema. 3. Small to moderate right pleural effusion with associated atelectasis. Consider follow-up upright PA and lateral when feasible. Signed by: Dr Ara Chun MD on 09/21/2018 1:51 AM Dictated By: ARA CHUN MD 0 Transcribed By: STEVE on 09/21/18150 COPY TO: SHALINI ENGLAND MD
[2019-01-20] MEDS: ONDANSETRON HCL INJ 2MG/ML 2ML 2 MG/ML VIAL IV PRN ×2 (02:05→08:59)
[2019-01-20 02:20] LABS: ABG HCO3 26 mmol/L (23-28); ABG PCO2 40 mmHg (41-51); ABG PO2 78 mmHg (80-105)
--- NOTE | 2019-01-20 02:51 | NUR ---
received pt from ER to room 299, AAOx3, on O2 at 8L, uses home O2, tele #13 with pt and pt running SR, pt uses motorized scooter at home, has right chest port for hemodialysis on TThSat, has 16F romero draining clear dark yellow urine, came with romero from home, able to verbalize needs, bed in lowest and locked position and call light in reach
[2019-01-20] MEDS ORDERED: CLONIDINE HCL0.1 MG PO (04:48)
[2019-01-20] MEDS ORDERED: NORVASC10 MG PO (04:48)
[2019-01-20] MEDS: INSULIN REGULAR, HUMAN 100 UNIT/1 ML 3ML VIAL SQ SCH ×4 (07:30→20:49)
[2019-01-20] MEDS: DOCUSATE SODIUM 100 MG CAP PO SCH ×2 (08:57→16:33)
[2019-01-20] MEDS: TAMSULOSIN HCL 0.4 MG CAP PO SCH (08:58)
[2019-01-20] MEDS: AMLODIPINE BESYLATE 10 MG TAB PO SCH (08:58)
[2019-01-20] MEDS: FUROSEMIDE 40 MG TAB PO SCH (08:58)
[2019-01-20] MEDS: BUPROPION HCL SR 150 MG TAB PO SCH (08:58)
[2019-01-20] MEDS: SERTRALINE HCL 50 MG TAB PO SCH (08:58)
[2019-01-20] MEDS ORDERED: PANTOPRAZOLE SOD 40 MG TABEC PO SCH ×2 (09:00→17:00)
[2019-01-20] MEDS ORDERED: HYDROCHLOROTHIAZIDE 25 MG TAB PO SCH (09:00)
[2019-01-20] MEDS ORDERED: MORPHINE SULFATE 2 MG/ML SYR 1ML IV PRN (10:00)
[2019-01-20] MEDS: MORPHINE SULFATE INJ 4 MG/ML INJ 1ML IV PRN ×2 (10:38→14:43)
[2019-01-20 11:09] LABS: CREATINE KINASE MB 4.9 ng/mL (0-5.0)
[2019-01-20] MEDS: METOPROLOL TARTRATE 25 MG TAB PO SCH ×2 (14:18→17:12)
[2019-01-20] MEDS ORDERED: ONDANSETRON HCL 4 MG ORAL DISINTEGRATING TAB PO PRN (14:30)
--- NOTE | 2019-01-20 16:18 | NUR ---
per , ''call dialysis and order hemodialysis STAT." call placed to [facility] and communicated need for STAT HD.
[2019-01-20] MEDS: CALCIUM ACETATE 667 MG GELCAP PO SCH (16:33)
--- NOTE | 2019-01-20 16:35 | Diagnostic Imaging Report ---
Exam: KUB - 6 views Clinical History: Abdominal pain. Comparison: Chest radiograph 01/19/2019. Findings: Exam is limited by the patient's large body habitus. Portions of the abdomen are excluded from the [id number]. The stomach is air-filled and distended. Nonobstructive bowel gas pattern. Moderate amount of stool in the colon. No acute bony abnormality. There is a small right pleural effusion with patchy opacity at the right lung base. Partially seen dialysis catheter tip. Impression: Limited examination. Air-filled, distended stomach. NG tube placement may be considered. Nonobstructive bowel gas pattern. Moderate amount of stool in the colon. Small right pleural effusion with patchy right basilar opacity, better characterized on chest radiograph from 01/19/2019. Signed by: Dr. Nadine Cantrell MD on 01/20/2019 4:32 PM
[2019-01-20] MEDS ORDERED: PANTOPRAZOLE 40 MG 10ML VIAL IV SCH (17:00)
[2019-01-20] MEDS: PANTOPRAZOLE 40 MG 10ML VIAL IV SCH (17:12)
[2019-01-20] MEDS ORDERED: HEPARIN SOD (PORCINE) 1000 UNIT/ML SDV IV PRN ×2 (18:15→18:45)
[2019-01-20] MEDS ORDERED: SODIUM CHLORIDE 0.9% 1000ML 2,000 ML IV PRN ×2 (18:15→18:45)
[2019-01-20] MEDS ORDERED: SODIUM CHLORIDE 0.9% 1000ML 1,000 ML, SODIUM CHLORIDE 0.9% 1000ML 1,000 ML IV PRN ×2 (18:15)
[2019-01-20] MEDS ORDERED: SODIUM CHLORIDE 0.9% 250ML 500 ML IV PRN ×2 (18:15→18:45)
[2019-01-20] MEDS: HYDROCODONE/APAP 10MG-325MG TAB PO PRN (18:34)
[2019-01-20] MEDS ORDERED: ATORVASTATIN 20 MG TAB PO SCH (21:00)
[2019-01-20] MEDS: ATORVASTATIN 40 MG TAB PO SCH (21:00)
--- NOTE | 2019-01-20 23:23 | Consultation ---
DATE OF CONSULTATION: 01/20/2019 HISTORY OF PRESENT ILLNESS: Mr. John Mandujano is known to me, 73-year-old gentleman, who is a very noncompliant patient, has underlying history of congestive heart failure, urinary retention, hypertension, type 2 diabetes, diabetic neuropathy, retinopathy, and came in apparently with chest pain, has been fairly noncompliant to dialysis schedule and timings when he feels good, he misses dialysis. He is scheduled for dialysis today. No apparent distress. Denies shortness of breath, nausea, vomiting. Remains on oxygen. PHYSICAL EXAMINATION: GENERAL: Awake, alert, sitting up in no apparent distress. VITAL SIGNS: Blood pressure is 186/101, pulse rate 112, afebrile, respiratory rate 20. HEAD AND NECK EXAM: Cornea clear. Mucosa moist. Neck veins not distended. LUNGS: Decreased air entry right base. Scattered rales bilaterally. HEART: S1 and S2 audible. ABDOMEN: Soft, nontender. LOWER EXTREMITY: No edema. LABS SHOW: White count 11.9, hemoglobin 11.6. Potassium level was 3.2 done yesterday. No labs done today. Has had urine and blood cultures done, results are pending. SOCIAL HISTORY: Does not smoke or drink. FAMILY HISTORY: Significant for hypertension. PAST HISTORY: As above, history of diabetes, diabetic retinopathy, neuropathy, end-stage renal disease, diabetic kidney disease, hyperlipidemia, and benign prostatic hypertrophy. CURRENT MEDICATION: Amlodipine 10 mg daily, atorvastatin 40 mg at bedtime, Wellbutrin 150 mg daily, calcium acetate/PhosLo with meals, diltiazem one time dose, docusate/Colace p.r.n., furosemide 80 mg daily, hydralazine p.r.n., hydrocodone p.r.n., metoprolol 25 mg p.o. q.6, ondansetron p.r.n., pantoprazole 40 mg p.o. q.a.c. Sertraline 50 mg daily. Regular insulin sliding scale. Flomax 0.4 mg daily. IMPRESSION: Hypokalemia as of yesterday. End-stage renal disease, fluid overload, pleural effusion, congestive heart failure. Plan on hemodialysis, dialysis nurse was here and then apparently left, not sure why without notifying me. We are trying to get located the dialysis nurse again to dialyze the patient. The patient does not appear to be in any respiratory distress at this point in time. We will place him on fluid restriction, renal diet. Please see orders. MD JAIMEE Cortes/MODL /[id number]
[2019-01-21] VITALS (7 sets, daily range): BP systolic 105–149; BP diastolic 56–78
[2019-01-21] MEDS: METOPROLOL TARTRATE 25 MG TAB PO SCH ×4 (00:21→17:23)
[2019-01-21 06:02] LABS: BASOPHILS # (AUTO) 0.1 (0.0-0.1); BASOPHILS % 0.5 % (0.0-1.0); EOSINOPHILS # (AUTO) 0.3 (0.0-0.4); EOSINOPHILS % 2.6 % (0.0-6.0); HEMATOCRIT 36.5 % (38.2-49.6); LYMPHOCYTES # (AUTO) 0.8 (1.0-3.2); LYMPHOCYTES % 7.6 % (18.0-39.1); MEAN CORPUSCULAR HEMOGLOBIN 30.6 pg (28-32); MEAN CORPUSCULAR HGB CONC 30.1 g/dL (31-35); MEAN CORPUSCULAR VOLUME 101.4 fL (81-99); MONOCYTES # (AUTO) 0.8 (0.2-0.8); MONOCYTES % 7.2 % (4.4-11.3); NEUTROPHILS # (AUTO) 8.5 (2.1-6.9); NEUTROPHILS % 81.5 % (38.7-80.0); PLATELET COUNT 140 x10e3/uL (140-360); RED CELL DISTRIBUTION WIDTH 16.5 % (11.7-14.4)
[2019-01-21] MEDS: MORPHINE SULFATE INJ 4 MG/ML INJ 1ML IV PRN (06:03)
[2019-01-21 06:25] LABS: ALBUMIN 2.4 g/dL (3.5-5.0); ALBUMIN/GLOBULIN RATIO 0.4 (0.8-2.0); ANION GAP 14.4 mmol/L (8-16); CALCIUM 8.3 mg/dL (8.4-10.2); CREATININE, SERUM 4.01 mg/dL (0.72-1.25); POTASSIUM 4.4 mmol/L (3.5-5.1)
[2019-01-21] MEDS: INSULIN REGULAR, HUMAN 100 UNIT/1 ML 3ML VIAL SQ SCH ×4 (07:30→20:56)
[2019-01-21] MEDS: PANTOPRAZOLE 40 MG 10ML VIAL IV SCH (08:29)
--- NOTE | 2019-01-21 08:46 | NUR ---
PATIENT OFF THE UNIT TO [facility] FOR EGD- PATIENT IN STABLE CONDITION WITH NO S/S OF RESPIRATORY DISTRESS. 02 AT 7L NC.
[2019-01-21] MEDS ORDERED: SODIUM CHLORIDE 0.9% 500ML 500 ML ONE (09:06)
--- NOTE | 2019-01-21 10:15 | NUR ---
PATIENT RETURNED TO THE UNIT PER BED- PATIENT IN STABLE CONDITION WITH NO S/S OF RESPIRATORY DISTRESS. O2 AND TELEMETRY APPLIED. CALL LIGHT IS WITHIN REACH, PATIENT INSTRUCTED TO CALL FOR ASSISTANCE NEEDED.
[2019-01-21] MEDS: HYDROCODONE/APAP 10MG-325MG TAB PO PRN ×3 (10:55→20:36)
[2019-01-21] MEDS: NEOMYCIN/POLYMYXIN/BACITRACIN 15 GM TUBE TOP SCH ×3 (10:56→21:00)
[2019-01-21] MEDS: TAMSULOSIN HCL 0.4 MG CAP PO SCH (10:56)
[2019-01-21] MEDS: SERTRALINE HCL 50 MG TAB PO SCH (10:56)
[2019-01-21] MEDS: BUPROPION HCL SR 150 MG TAB PO SCH (10:56)
[2019-01-21] MEDS: DOCUSATE SODIUM 100 MG CAP PO SCH ×2 (10:56→17:22)
[2019-01-21] MEDS: CALCIUM ACETATE 667 MG GELCAP PO SCH ×2 (10:56→17:22)
[2019-01-21] MEDS: SALINE 0.65% NAS SOLN 1 SPRAY BTL SCH ×4 (10:56→22:00)
--- NOTE | 2019-01-21 10:57 | NUR ---
CALL PLACED OUT TO DR. TOBIAS TO INQUIRE IF PATIENT IS TO RECEIVE DIALYSIS TODAY (ON HIS REGULAR DIALYSIS DAY)- AWAITING CALLBACK.
--- NOTE | 2019-01-21 14:24 | NUR ---
SPOKE WITH PT WHOM STATES THAT HE WAS DISCHARGED FROM [facility] DUE TO NON COMPLIANCE WITH THERAPY, HE STATES HE WANTS TO GO HOME WITH HIS SERVICES HE HAS SET UP, [facility] AND [facility].
--- NOTE | 2019-01-21 16:23 | NUR ---
CALL PLACED OUT TO DR. TOBIAS OR DR. ROSAS REGARDING DIALYSIS ORDERS- AWAITING CALLBACK.
[2019-01-21] MEDS: BUDESONIDE/FORMOTEROL 160/4.5MCG INHALER INH SCH (17:00)
--- NOTE | 2019-01-21 17:08 | Operative Report ---
DATE OF PROCEDURE: 01/21/2019 SURGEON: Ren Joe MD PROCEDURE: EGD with biopsies. INDICATIONS FOR PROCEDURE: Upper abdominal pain, nausea, and vomiting. MEDICATIONS: The patient was done under MAC. Please see anesthesiologist's note. DESCRIPTION OF PROCEDURE: With the patient in lateral decubitus position, a flexible fiberoptic Olympus gastroscope was introduced into the esophagus under direct visualization without any difficulty. There was some patchy erythema noted in distal esophagus. The scope was then advanced with ease into the stomach traversing a small sliding hiatal hernia. Mucosa overlying the antrum and the body revealed some patchy erythema and moderate edema. Biopsies were obtained and sent to stain for H pylori. Hyperplastic appearing polyps were noted in the body of the stomach and some were partially excised with the cold biopsy forceps. The pylorus was intubated with ease and the scope was advanced all the way to the second portion of the duodenum. The scope was then withdrawn slowly. Mucosa overlying the proximal second portion appeared to be within normal limits. The duodenal bulb was nodular and biopsies were obtained. The scope was then withdrawn back into the stomach and retroflexed and a small retained amount of undigested food was noted in the fundus. The cardia appeared to be within normal limits. The scope was then straightened out. The stomach was decompressed. The scope was subsequently withdrawn. The patient tolerated the procedure well. IMPRESSION: 1. Distal esophagitis, mild. 2. Small sliding hiatal hernia. 3. Gastritis, biopsied, biopsies sent to stain for H pylori. 4. Gastric polyps, body, hyperplastic appearing, some partially excised with the cold biopsy forceps. 5. Small amount of retained undigested food in the fundus of the stomach. 6. Duodenal bulb, nodular, biopsied. PLAN: Follow up histology. Initiate Protonix 40 mg one p.o. a.c. b.i.d. Start full liquid renal diet. Ren Joe MD [facility] /[id number] cc: Sid Oscar MD
--- NOTE | 2019-01-21 17:18 | Consultation ---
DATE OF CONSULTATION: 01/21/2019 HISTORY OF PRESENT ILLNESS: I was kindly asked to see this 73-year-old man for evaluation of epistaxis. The patient has a long history of epistaxis occurring over many years. He was evaluated by me at [facility] on October 05, 2018 and again on December 07, 2018. Both times, he was found to have bleeding points in the anterior nasal septum, which were cauterized with silver nitrate. He now reports intermittent epistaxis usually from the right side, but occasionally from the left, most recently occurring one day ago. He reports these are relatively mild and stops spontaneously within a few minutes. PAST MEDICAL HISTORY: Reviewed in detail in the chart. PAST SURGICAL HISTORY: Reviewed in detail in the chart. PHYSICAL EXAMINATION: There is a moderate amount of cerumen in the right external auditory canal. The visualized portion of the tympanic membrane is normal. The right pinna is normal. There is no postauricular pain, swelling, or tenderness. The left pinna is normal. The left postauricular area is unremarkable. There is no pain, swelling, or tenderness. External auditory canal has a moderate amount of cerumen. The left tympanic membrane is unremarkable. He has a mild S-shaped nasal septal deviation. There is fresh blood noted in the right nasal cavity along with crusting. He is using nasal prong oxygen with heated humidification. Oral cavity examination shows mild oral candidiasis on the dorsum of the tongue. The posterior pharyngeal wall is normal. There is no palpable cervical adenopathy. DIAGNOSTIC DATA: On fiberoptic diagnostic rhinoscopy, the only bleeding points identified were the anterior nasal septum bilaterally. There was no active paranasal sinus pathology. There is moderately severe S-shaped nasal septal deviation. After application of 2% Pontocaine, the dilated blood vessels of the anterior nasal septum were cauterized with silver nitrate (both sides). ASSESSMENT: 1. Epistaxis. 2. Nasal septal deviation. 3. Coagulopathy. PLAN: 1. Wilkin nasal spray two puffs each side of the nose q.4 hours while awake. 2. Neosporin ointment apply to each nostril t.i.d. MD JANEL Franks/MODL /[id number]
[2019-01-21] MEDS: FUROSEMIDE 40 MG TAB PO SCH (17:22)
[2019-01-21] MEDS: PANTOPRAZOLE SOD 40 MG TABEC PO SCH (17:22)
[2019-01-21] MEDS: AMLODIPINE BESYLATE 10 MG TAB PO SCH (17:22)
--- NOTE | 2019-01-21 18:22 | Diagnostic Imaging Report ---
ULTRASOUND: Chest TECHNIQUE: Ultrasound evaluation of the chest to evaluate for pleural effusion. HISTORY: Effusion COMPARISON: Chest radiograph January 19, 2019 DISCUSSION: Right chest anechoic fluid. IMPRESSION: Small to moderate right pleural effusion. Signed by: Dr. Brayan Aquino D.O., M.M.M. on 01/21/2019 6:19 PM
[2019-01-21] MEDS ORDERED: LIDOCAINE HCL 2% LOCAL INJ 5 ML SDV VIAL INJ ONE (19:06)
[2019-01-21] MEDS ORDERED: PROPOFOL IV EMULSION 10 MG/ML 20 ML VIAL ONE (19:06)
--- NOTE | 2019-01-21 19:23 | NUR ---
PATIENT IN STABLE CONDITION WITH NO S/S OF RESPIRATORY DISTRESS. O2 AND TELEMETRY APPLIED. AIR PUMP APPLIED. PATIENT TURNED TO HIS LEFT SIDE. CALL LIGHT IS WITHIN REACH, PATIENT INSTRUCTED TO CALL FOR ASSISTANCE NEEDED. BEDSIDE REPORT GIVEN TO ONCOMING NURSE.
[2019-01-21] MEDS: ALBUTEROL/IPRATROPIUM 3 ML NEB NEB SCH (20:22)
[2019-01-21] MEDS: ATORVASTATIN 40 MG TAB PO SCH (20:36)
[2019-01-22] VITALS (8 sets, daily range): BP systolic 105–140; BP diastolic 56–70
--- NOTE | 2019-01-22 00:35 | Consultation ---
DATE OF CONSULTATION: Pulmonary Consultation The patient is well known to the Pulmonary Service. HISTORY OF PRESENT ILLNESS: Charming, but unfortunate 73-year-old gentleman last seen in August of 2017 with history of severe COPD, congestive heart failure, end-stage renal disease, insulin dependent diabetes. He is diagnosed as having obstructive sleep apnea consistently refused BiPAP, was unable to use it under this hospitalizations when he was given a trial. He has been on dialysis last three months. According to record, he had some nausea and vomiting and shortness of breath in dialysis unit. He smokes mainly as four packs a day for many years, but he has now quit. Uses oxygen at home to maintain the saturation requiring as many as 8 L. He is allergic to Carafate and tramadol. MEDICATIONS: Include albuterol, Norvasc, Nexium, Symbicort, clonidine, Zoloft, vitamin D, and insulin as well as nebulizer and home oxygen. PAST SURGICAL HISTORY: He has had appendectomy, oral surgery, knee replacement. SOCIAL HISTORY: Worked as a highway construction inspector. PHYSICAL EXAMINATION: GENERAL: A burly white male, in no acute distress. Complains of diplopia, swelling of his arm. VITAL SIGNS: Temperature 97.6, pulse 101, respirations 20, blood pressure 114/76. LUNGS: Diminished breath sounds. HEART: Regular rhythm. ABDOMEN: Obese. EXTREMITIES: Edematous. Presence of obesity. Chest x-rays are difficult to interpret. He does have a right tunneled catheter J and a small right pleural effusion. Requests ultrasounds and inhaled bronchodilators. Adjust nasal oxygen to provide adequate saturation during exercise. Dialysis as per Renal service. Blood pressure control as per Renal service. Control diabetes. Thank you for this kind referral. Bertin Aguirre MD DS/MODL /[id number]
[2019-01-22] MEDS: HYDROCODONE/APAP 10MG-325MG TAB PO PRN ×4 (03:40→23:25)
[2019-01-22] MEDS: METOPROLOL TARTRATE 25 MG TAB PO SCH ×4 (06:00→21:35)
[2019-01-22] MEDS: SALINE 0.65% NAS SOLN 1 SPRAY BTL SCH ×5 (06:00→21:25)
[2019-01-22] MEDS: ALBUTEROL/IPRATROPIUM 3 ML NEB NEB SCH ×4 (06:03→19:30)
[2019-01-22] MEDS: BUDESONIDE/FORMOTEROL 160/4.5MCG INHALER INH SCH ×2 (07:05→19:30)
[2019-01-22 07:07] LABS: HEMATOCRIT 35.5 % (38.2-49.6); HEMOGLOBIN 10.4 g/dL (14.0-18.0); MEAN CORPUSCULAR HGB CONC 29.3 g/dL (31-35); MEAN CORPUSCULAR VOLUME 102.3 fL (81-99); PLATELET COUNT 152 x10e3/uL (140-360); RED BLOOD COUNT 3.47 x10e6/uL (4.3-5.7); RED CELL DISTRIBUTION WIDTH 16.4 % (11.7-14.4)
--- NOTE | 2019-01-22 07:07 | NUR ---
PT C/O PAIN AND GIVEN NORCO /CALL LIGHT WITH IN REACH .CONTINUE TO MONITOR
--- NOTE | 2019-01-22 07:12 | NUR ---
REPORT GIVEN TO THE ON COMING NURSE
[2019-01-22 07:20] LABS: ANION GAP 16.9 mmol/L (8-16); CALCIUM 8.2 mg/dL (8.4-10.2); CREATININE, SERUM 5.54 mg/dL (0.72-1.25); POTASSIUM 4.9 mmol/L (3.5-5.1)
[2019-01-22] MEDS: INSULIN REGULAR, HUMAN 100 UNIT/1 ML 3ML VIAL SQ SCH ×4 (07:30→21:41)
[2019-01-22] MEDS: DOCUSATE SODIUM 100 MG CAP PO SCH ×2 (09:16→18:07)
[2019-01-22] MEDS: CALCIUM ACETATE 667 MG GELCAP PO SCH ×2 (09:16→18:07)
[2019-01-22] MEDS: PANTOPRAZOLE SOD 40 MG TABEC PO SCH ×2 (09:16→18:07)
[2019-01-22] MEDS: FUROSEMIDE 40 MG TAB PO SCH (09:16)
[2019-01-22] MEDS: BUPROPION HCL SR 150 MG TAB PO SCH (09:17)
[2019-01-22] MEDS: SERTRALINE HCL 50 MG TAB PO SCH (09:17)
[2019-01-22] MEDS: NEOMYCIN/POLYMYXIN/BACITRACIN 15 GM TUBE TOP SCH ×3 (09:17→21:26)
[2019-01-22 13:24] LABS: EOSINOPHILS % (MANUAL) 3 % (0-7); LYMPHOCYTES % (MANUAL) 17 % (19-48); METAMYELOCYTES % (MANUAL) 1 % (0-0); MONOCYTES % (MANUAL) 5 % (3.4-9.0); MYELOCYTES % (MANUAL) 1 % (0-0); NEUTROPHILS % (MANUAL) 73 % (40-74)
[2019-01-22 13:25] LABS: ANISOCYTOSIS SLIGHT; HYPOCHROMASIA SLIGHT; PLATELET ESTIMATE ADEQUATE; PLATELET MORPHOLOGY COMMENT NORMAL; RBC MORPHOLOGY COMMENT NORMAL
[2019-01-22] MEDS ORDERED: CEFEPIME HCL 1 GM VIAL IV SCH (14:00)
[2019-01-22] MEDS ORDERED: CEFEPIME 1GM/NS 0.9% 50 ML 50 ML IV SCH ×2 (14:30→20:00)
--- NOTE | 2019-01-22 15:51 | NUR ---
HOME HEALTH DISCHARGE NOTE PATIENT ADDRESS WHERE SERVICE WILL BE RECEIVED: [address] [place] [address] PATIENT CONTACT NUMBER: [phone] NAME OF HOME HEALTH COMPANY: [facility] TELEPHONE/FAX NUMBER OF COMPANY: / FAX: [phone] ADDRESS OF COMPANY: [address] [place] [address], [place] [address] SERVICES TO RECEIVE: [facility] ANTICIPATED DATE SERVICES WILL BEGIN: 01/23/2019 Please call the company above if you have not received a call to schedule a home visit within 24 hours of discharge. Addendum: 01/22/19 at 1555 by Loree Bear CM MOJ[facility] SIMONS TO CONFIRM SERVICES. INFORMED PT TO DC AFTER HD TODAY.
[2019-01-22] MEDS: AMLODIPINE BESYLATE 5 MG TAB PO SCH (17:00)
[2019-01-22] MEDS ORDERED: AMLODIPINE BESYL5 MG PO (17:53)
[2019-01-22] MEDS ORDERED: NORVASC2.5 MG PO (17:59)
[2019-01-22] MEDS ORDERED: METOPROLOL TART25 MG PO (18:00)
--- NOTE | 2019-01-22 18:54 | NUR ---
Spoke with Dr. Oscar to see if pt can discharge tomorrow and not tonight he states that is ok.
[2019-01-22] MEDS ORDERED: TAMSULOSIN HCL 0.4 MG CAP PO SCH (21:00)
[2019-01-22] MEDS: ATORVASTATIN 40 MG TAB PO SCH (21:34)
[2019-01-23] VITALS: BP 104/55
[2019-01-23] MEDS: ALBUTEROL/IPRATROPIUM 3 ML NEB NEB SCH ×3 (03:00→13:00)
[2019-01-23 04:00] VITALS: BP 138/65
[2019-01-23] MEDS: SALINE 0.65% NAS SOLN 1 SPRAY BTL SCH ×3 (05:25→14:00)
[2019-01-23] MEDS: HYDROCODONE/APAP 10MG-325MG TAB PO PRN ×3 (05:30→14:51)
[2019-01-23] MEDS: METOPROLOL TARTRATE 25 MG TAB PO SCH ×2 (05:31→14:51)
--- NOTE | 2019-01-23 07:17 | NUR ---
patient endorsed to next shift for continuity of care
[2019-01-23] MEDS: INSULIN REGULAR, HUMAN 100 UNIT/1 ML 3ML VIAL SQ SCH ×3 (07:30→17:43)
[2019-01-23 07:54] VITALS: BP 139/76
[2019-01-23 08:00] VITALS: BP 139/76
[2019-01-23] MEDS: SERTRALINE HCL 50 MG TAB PO SCH (09:24)
[2019-01-23] MEDS: FUROSEMIDE 40 MG TAB PO SCH (09:24)
[2019-01-23] MEDS: BUPROPION HCL SR 150 MG TAB PO SCH (09:24)
[2019-01-23] MEDS: AMLODIPINE BESYLATE 5 MG TAB PO SCH ×2 (09:24→17:49)
[2019-01-23] MEDS: PANTOPRAZOLE SOD 40 MG TABEC PO SCH ×2 (09:24→17:49)
[2019-01-23] MEDS: DOCUSATE SODIUM 100 MG CAP PO SCH ×2 (09:24→17:43)
[2019-01-23] MEDS: NEOMYCIN/POLYMYXIN/BACITRACIN 15 GM TUBE TOP SCH ×2 (09:26→15:00)
[2019-01-23] MEDS: CALCIUM ACETATE 667 MG GELCAP PO SCH ×2 (09:27→17:49)
[2019-01-23 12:06] VITALS: BP 127/64
[2019-01-23] MEDS: BUDESONIDE/FORMOTEROL 160/4.5MCG INHALER INH SCH (13:00)
--- NOTE | 2019-01-23 13:14 | NUR ---
SPOKE WITH PT HE DID NOT WANT TO GO HOME, HE TOLD NURSE NO ONE HAD SPOKE WITH HIM, WENT UP WITH NURSE AND ASKED HIM IF HE REMEMBERED SPEAKING WITH ME OVER THE LAST SEVERAL DAYS. HE STATES YES, I LET HIM KNOW THE DOCTOR HAS DISCHARGED HIM. HE STATED THAT HIS HOME HEALTH DOES NOT COME TO SEE HIM. I ASKED HIM WHY HE DIDNT TELL ME THAT ANY OF THE THREE PRIOR DAYS THAT HE WAS HERE. HE STATED THAT HE FORGOT. HE ASKED ME IF I WOULD CALL HIS DAUGHTER, SPOKE WITH YASMIN WHOM LET ME KNOW HE IS OUT OF SNF DAYS AND THAT IS WHY HE WENT HOME. 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 SHE STATES SHE WILL MEET HIM AT THE APARTMENT AND THEY WILL TALK ABOUT IT TONIGHT. WE WILL ARRANGE TRANSPORTATION TO TAKE TO APARTMENT TO GET HOME. ALSO HAD A TALK WITH PT ABOUT CALLING 911 FOR EMERGENCIES AND NOT BECAUSE HE NEEDS HIS BRIEF CHANGED. HE LAUGHED AND STATED HE WONT DO IT AGAIN.
[2019-01-23 16:30] VITALS: BP 118/63
--- NOTE | 2019-01-25 00:41 | Consultation ---
DATE OF CONSULTATION: 01/20/[address] The patient admitted to Dr. Oscar on the 19 of January and seen in consultation on 20 of January. HISTORY OF PRESENT ILLNESS: This 73-year-old patient was kindly referred by Dr. Oscar for cardiac evaluation. The patient is dialysis patient and he was sent from the dialysis department because of nausea and vomiting, complaining of substernal chest pain and shortness of breath and apparently the dialysis session had to be terminated because of the patient's complaints. On arrival, the patient showed a significant hypertension with blood pressure of 179/86. The chest x-ray showed cardiomegaly with pulmonary venous congestion and right pleural effusion. Electrocardiogram shows nonspecific ST-T changes with no STEMI and the patient's cardiac enzymes have been normal. The patient does have coronary artery disease and had recent cardiac catheterization, which showed mild coronary artery disease. The patient also has history of hypertensive cardiovascular disease, end-stage renal disease, anemia, COPD, pulmonary hypertension, diabetes mellitus. The initial EKG also showed sinus tachycardiac with episodes of nonsustained paroxysmal atrial fibrillation and premature atrial contraction. The patient also has a tunneled Gentry catheter inserted in the right infraclavicular area. PAST MEDICAL HISTORY: The patient's history reveals that he has severe diabetic neuropathy with chronic leg edema, benign prostatic hypertrophy, hyperlipidemia, right leg alignment, appendectomy, left total knee replacement. SOCIAL HISTORY: The patient had been a smoker, but stopped in the year 1999. ALLERGIES: TRAMADOL AND CARAFATE. REVIEW OF SYSTEMS: The remainder of systems revealed the patient is still complaining of some intermittent chest pain coming and going and shortness of breath as well as nausea. PHYSICAL EXAMINATION: VITAL SIGNS: The patient's blood pressure 149/76, temperature 96.9. The patient is still tachycardiac with heart rate of 110 per minute. NECK: Carotid pulses are present. CHEST: Revealing decreased breath sounds. CARDIOVASCULAR: Normal apical impulse. The rhythm is regular at 110 per minute. There is occasional extra systole. There is no rub. There is no S3. The patient's shows dialysis catheter in the right infraclavicular area, which is clean and dressed. ABDOMEN: Soft. There is no tenderness or organomegaly. EXTREMITIES: Pedal pulses are present. There is 1+ edema. There is bluish discoloration of the lower extremities. Maru' Sign is negative. NEUROLOGIC: He does not feel any motor defect. IMPRESSION: 1. Chest pain syndrome with history of coronary artery disease. 2. Hypertension. 3. Paroxysmal atrial fibrillation. 4. Fluid overload and signs of congestive heart failure with recurrent right pleural effusion. 5. Diabetes mellitus. 6. End-stage renal disease. 7. Morbid obesity. 8. Diabetic neuropathy. Because of the patient's EKG showing paroxysmal atrial fibrillation and sinus tachycardia, I will likely start the patient on metoprolol 25 mg every 6 hours, which also should improve the patient's hypertension and it may help in the treatment of the patient's congestive heart failure. Thank you very much for letting me see this very nice patient. MD JONAS JcH/MODL /[id number]
--- NOTE | 2019-01-25 04:57 | Discharge Summary ---
HOSPITAL COURSE: The patient was hospitalized through the emergency room. See ER notes. The patient related that in general he was weak and more short of breath than usual. ER physician recommended hospitalization as the patient had not been going to dialysis for over a week, basically since he left a long term recently. The patient noted severe epigastric pain,nausea on arrival. See GI notes, EGD report (gastroduodenitis) treated with PPI. He has a long pattern of hospitalization, long term admission, leaving the long term and then coming here shortly thereafter. See multiple recent stays. Here the patient's database was obtained and monitored. His preexisting illnesses were treated, these including diabetes mellitus, hypertension, and his end-stage renal disease. He was dialyzed here serially. The patient has a history of recurrent epistaxis and he was seen and treated by his tensioning machine operator also while here. The patient was kindly reassessed by his unit nurse and supervisor calibration while here. He actually experienced significant improvement while here. Ultimately, he was stable enough to return to his long term or to home health care. He declined long term care. Arrangements were made again for outpatient dialysis as well as home health care. He has home O2 and nebulizers. See also serial orders. Lab and imaging per EMR. Again, database was ordered to be obtained. Prior admission ordered. Medical regimen was reinitiated and diabetes was managed medically. Hypertension was monitored and treated as mentioned. The patient was given antibiotics for recurrent UTI per culture reports. He was treated with pulmonary therapy. EKG with paroxysmal atrial fibrillation. See cardiology recommendations per consult. The patient was counseled regarding all of the findings while here. Imaging studies included chest x-ray on arrival with essential pulmonary venous congestion and right effusion. Confirmed an ultrasound and followup. The patient experienced significant nausea on arrival and was treated with antiemetics. KUB nonobstructive. Moderate amount of stool in colon. The patient improved on medical treatment and nausea resolved. He had edema of the right lower extremity and Doppler scan was negative for deep venous thrombosis. Edema resolved bilaterally here on dialysis. On arrival, white count 11.9 on January 19. On January 22, white count 9.782 with hemoglobin 10.4, platelet count 152,000. Pyuria on UA. The patient's blood sugars remained normal to trace elevated while here. Chemistries were monitored. Amylase and lipase were normal. FINAL IMPRESSION: Fluid overload secondary to the patient not going to dialysis for several sessions. End-stage renal failure. Improved on dialysis here. The patient was counseled regarding the need to attend dialysis 3 times weekly of scheduled on an outpatient basis. He was advised ability of resumption of long term care, which he declined. Multiple chronic medical illnesses. Type 2 diabetes mellitus. Chronic obstructive pulmonary disease. Coronary artery disease. The patient was reassessed by his framing machine tender while here, see notes. Hyperlipoproteinemia. Degenerative joint disease and chronic pain. Chronic restrictive ventilatory defect associated with chronic morbid obesity and obstructive sleep apnea. Intermittent nasal pharyngeal bleeding with prior cautery, see prior admissions. Prostatic hypertrophy and recurrent urinary tract infection and chronic bacteruria, treated. The patient was asked to follow up clinic within the week. Prognosis is poor based on recent patterns. He was counseled regarding appropriate diet and need for caloric reduction. He was counseled regarding fluid restriction and renal restrictions, dietary. The patient was counseled regarding meds, see discharge medicine reconciliation list. MD LALO Meléndez/MODL /[id number]
== END 2019-01-23 18:27 | disposition home or self-care (01) ==
LOC: ER 21:58 → ERHOLD 01-20 01:46 → MED/SURG3 01-20 02:02
PROVIDERS: ADMIT Internal Medicine; ATTEND Internal Medicine
DX: I12.0 Hypertensive chronic kidney disease with stage 5 chronic kidney disease or end stage renal disease (principal); E11.9 Type 2 diabetes mellitus without complications; J44.9 Chronic obstructive pulmonary disease, unspecified; I25.10 Atherosclerotic heart disease of native coronary artery without angina pectoris; G47.33 Obstructive sleep apnea (adult) (pediatric); E66.01 Morbid (severe) obesity due to excess calories; Z68.41 Body mass index [BMI] 40.0-44.9, adult; Z87.440 Personal history of urinary (tract) infections; N39.0 Urinary tract infection, site not specified; N40.0 Benign prostatic hyperplasia without lower urinary tract symptoms; E11.22 Type 2 diabetes mellitus with diabetic chronic kidney disease; N18.6 End stage renal disease; Z99.2 Dependence on renal dialysis; Z79.4 Long term (current) use of insulin
CPT/HCPCS: 36415 ×4; 36600; 71045; 74019; 76604; 80048; 80053 ×2; 82150; 82550 ×2; 82553 ×2; 82805; 82948 ×4; 83605; 83690; 84484 ×2; 85007; 85025 ×2; 85027; 86704; 86707; 87040; 87070; 87086; 87186; 87205; 87350; 88305; 88312; 90937; 93005 ×3; 93306; 93970; 94640 ×4; 94664; 97110; 97161; 97530 ×2; 99284; C9113 ×2; G0378 ×4; J0360; J0692; J0696; J1644 ×2; J1817; J2001; J2270 ×2; J2405; J2704; J7030 ×2; J7040; Q0162; S0164 ×4; 43239; 90962